=== PATIENT | female | born 1980 | race Caucasian/White ===

== ENCOUNTER → 2017-10-08 | Outpatient (REF) ==
[~2017-10-08] MED LIST: HYDR-4240 PO; IBUP600T22 PO; IOPAMIDOL 76% 100 ML INFUS BTL 100 ML ONE
--- NOTE | 2017-10-08 12:45 | RADIOLOGY IMAGING REPORT ---
FACILITY: [facility] PATIENT NAME: Rachel Marshall : 1980 MR: [id number] V: [id number] EXAM DATE: ORDERING PHYSICIAN: VITALIY CAR TECHNOLOGIST: [place] [facility] [place] : 1980 Visit/Account:[id number] Date of Sevice: 10/08/2017 ABDOMEN/PELVIS WITH CONTRAST HISTORY: Rectal tumor, abdomen and pelvis pain x3 months TECHNIQUE: Following administration of IV contrast contiguous axial images acquired through the abdom en/pelvis. Coronal and sagittal reformatting also performed. Dose Lowering Technique One of the following dose optimization techniques was utilized in the performance of this exam: Autom ated exposure control; adjustment of the mA and/or kV according to the patient's size; or use of an i terative reconstruction technique. Specific details can be referenced in the facility's radiology C T exam operational policy. CONTRAST: 75 mL Isovue-370 COMPARISON: None. FINDINGS: Visualized lung bases: Negative Hepatobiliary: There are postsurgical changes from a cholecystectomy. Liver is enlarged measuring 24.6 cm in length Spleen: The spleen is borderline enlarged measuring 13.4 cm in length. small accessory splenule Adrenals: There Is a 2.2 x 1.6 cm indeterminate right adrenal mass Pancreas: Negative. Kidneys ureters or bladder: There is scarring of the upper pole of the right kidney Genitalia: Please see description under GI section GI: There is irregular thickening of the wall of the rectum. There is an irregular soft tissue mass extending from the left lateral wall of the rectum extending into and appears to invade the left lev ator ani muscle. This mass measures approximately 2.8 x 2.6 x 4.2 cm. there is an additional heterogeneous soft tissue density mass interposed between the anterior left l ateral wall at the rectosigmoid junction extending anteriorly to be in intimate contact with the post erior wall of the vagina/lower cervix. This mass measures 4.6 x 3.2 x 4.5 cm. There is diverticulosis left-sided colon no CT evidence of acute diverticulitis Vessels/spaces/nodes: There Is a 1.3 x 1 cm left common iliac lymph node best seen on image 99 of ser ies 2 there is a 1.1 x 0.7 cm right common iliac lymph node. There are multiple internal iliac lymph nodes present bilaterally. A banking representative left common iliac internal iliac lymph node measures 1 x 0.8 cm there are multiple small lymph nodes identified in the perirectal fat. A banking representative lym ph node measures 8 x 8 mm there are additional small scattered retroperitoneal lymph nodes Bones/soft tissues: There are mild spondylotic changes L5-S1 Additional findings: None pertinent. IMPRESSION: Hepatomegaly and borderline splenomegaly Postsurgical changes from a cholecystectomy 2.2 cm indeterminate right adrenal mass. This could be further evaluated with dedicated CT of the ad renal glands or MR. Scarring upper pole the right kidney There is irregular thickening of the wall of the rectum consistent with history of a rectal tumor.. There is an irregular soft tissue mass extending from the left lateral wall of the rectum extending i nto and invading the left levator ani muscle. This mass measures 2.8 x 2.6 x 4.2 cm Additional heterogeneous soft tissue mass interposed between the anterior left lateral wall of the re ctosigmoid junction extending anteriorly to be in intimate contact with the posterior wall of the vag rika/lower cervix this mass measures 4.6 x 3.2 x 4.5 cm. There is retroperitoneal adenopathy and perirectal adenopathy as described. Report Dictated By: Shirley Winn MD at 10/08/2017 12:20 PM Report E-Signed By: Shirley Winn MD at 10/08/2017 12:41 PM WSN:[email or web address]
== END ==
LOC: CT 00:40
PROVIDERS: ATTEND Nurse Practitioner
DX: R16.0 Hepatomegaly, not elsewhere classified (principal); E27.9 Disorder of adrenal gland, unspecified; R59.0 Localized enlarged lymph nodes; Z90.49 Acquired absence of other specified parts of digestive tract
CPT/HCPCS: 74177; Q9967

== ENCOUNTER → 2017-10-27 | Outpatient (CLI) | payer SELFPAY ==
[~2017-10-27] MED LIST changes: +ACET-2146 PO; -IOPAMIDOL 76% 100 ML INFUS BTL 100 ML ONE; +KET10 PO; +LANI SUBQ; +LEVI SUBQ; +METF-411 PO; +POLY17PO25 PO; +TRAM-420 PO
== END ==
LOC: LAB 16:16
PROVIDERS: ATTEND Surgery
DX: D12.8 Benign neoplasm of rectum (principal)
CPT/HCPCS: 88305; 88344

== ENCOUNTER 2017-11-04 00:47 | Day surgery (SDC) | payer SELFPAY ==
[~2017-11-04] VITALS: Ht 165.1 cm; Wt 151.5 kg
[2017-11-04 06:18] LABS: PLATELET COUNT, AUTOMATED 452 K/uL (150-450)
[2017-11-04 06:50] VITALS: BP 156/94
[2017-11-04] MEDS ORDERED: HEPARIN SOD LCK FLSH 100 UN/ML ONE (07:04)
[2017-11-04] MEDS ORDERED: ROPIVACAINE 0.5% 20 ML VIAL ONE (07:05)
[2017-11-04] MEDS ORDERED: NS(*) 0.9% 10 ML VIAL 20 ML ONE (07:05)
[2017-11-04] MEDS ORDERED: GELATIN SPONGE SZ 100 ONE (07:05)
[2017-11-04] MEDS ORDERED: DEXAMETHASONE SOD PHOS 10MG/ML IVP ONE (07:30)
[2017-11-04] MEDS ORDERED: ONDANSETRON 4 MG/2 ML VIAL IVP ONE (07:30)
[2017-11-04] MEDS ORDERED: ROCURONIUM BROM 10 MG/ML 5 ML ONE (08:00)
[2017-11-04] MEDS ORDERED: SUGAMMADEX SOD 500 MG/5 ML SDV ONE (08:48)
[2017-11-04] MEDS ORDERED: FAMOTIDINE 20 MG TAB PO ONE (09:10)
[2017-11-04] MEDS ORDERED: ceFAZolin(*) 2GM/D5W 50ML 50 ML IVPB ONE (09:10)
[2017-11-04] MEDS ORDERED: MIDAZOLAM 2 MG/2 ML VIAL IVP PRN (09:10)
[2017-11-04] MEDS ORDERED: NORMOSOL R SOLN(*) 1000 ML BAG 1,000 ML IV PRN (09:10)
[2017-11-04] MEDS ORDERED: LIDOCAINE/SOD BICARB 8.4% SYR ID ONE (09:10)
--- NOTE | 2017-11-04 09:20 | RADIOLOGY IMAGING REPORT ---
FACILITY: [facility] PATIENT NAME: Rachel Marshall : 1980 MR: [id number] V: [id number] EXAM DATE: ORDERING PHYSICIAN: SONY LOZANO TECHNOLOG[place] [facility] [place] : 1980 Visit/Account:[id number] Date of Sevice: 11/04/2017 EXAMINATION: OR fluoroscopy films chest single view HISTORY: Port placement. Rectal tumor. COMPARISON: Chest radiograph from 06/18/2016. FLUOROSCOPY TIME: 28.4 seconds. DOSE: DAP was 0.69847 mGy*m2. FINDINGS: Single fluoroscopic image of the chest is obtained intraoperatively. There is placement o f a right IJ central venous port in progress. An endotracheal tube is partly visualized. IMPRESSION: Right IJ central venous port placement in progress. Please see the performing physician's notes for full details. Report Dictated By: Aggie Felix MD at 11/04/2017 9:12 AM Report E-Signed By: Aggie Felix MD at 11/04/2017 9:16 AM WSN:[email or web address]
[2017-11-04] MEDS ORDERED: fentaNYL CITR 100 MCG/2 ML AMP ONE (09:21)
[2017-11-04] MEDS ORDERED: TRAM-420 PO (09:25)
--- NOTE | 2017-11-04 09:28 | Short(Outpt) Discharge Summary ---
Discharge Summary Reason for Hosp/Final Diag: (1) Rectal cancer Status: Chronic Hospital Course & Plan: Flexible sigmoidoscopy and right IJ Power Port placement completed without problems. Departure Discharge to: Home, Self Care Discharge Instructions Home Meds Active Scripts Tramadol Hcl (TRAMADOL HCL) 50 Mg Tablet, 1-2 TAB PO Q4H PRN for PAIN, #30 TAB 0 Refills Prov:SONY LOZANO MD 11/04/17 Reported Medications Insulin Detemir (LEVEMIR) 100 Unit/Ml Injs, 15-20 UNIT SUBQ QDAY 11/01/17 Acetaminophen 500 Mg Tab (ACETAMINOPHEN EXTRA STRENGTH) 500 Mg Tablet, 500 MG PO Q4-6H, TAB 11/01/17 Metformin Hcl (METFORMIN HCL) 500 Mg Tablet, 1 TAB PO BID, TAB 11/01/17 Polyethylene Glycol 3350 (MIRALAX) Unknown Strength Powd.pack, PO, PKT 10/27/17 Ketorolac Tromethamine (KETOROLAC TROMETHAMINE) 10 Mg Tab, 10 MG PO Q4H, TAB 10/21/17 Discontinued Reported Medications Insulin Glargine (LANTUS) Unknown Strength Soln, SUBQ, ML 10/27/17 Ibuprofen (IBUPROFEN) 600 Mg Tablet, 1 TAB PO Q6H PRN for PAIN, #30 01/04/13 [None] No Conflict Check 01/04/13 Follow up Referrals: Oncology - In One Week @ [facility] Follow up with medical and radiation oncology within the next week to discuss chemotherapy and radiation therapy. Diet: Regular Activity: As Tolerated Special Instructions: Your procedures were completed without any problems. You may leave the incisions open to air but leave the steristrips in place until they fall off on their own. You may shower starting on 11/06/17, but don't immerse the incisions for 2 weeks. Follow up with Dr. Parmjit March and the radiation oncologist in the next week to coordinate your chemotherapy and radiation therapy. SONY LOZANO MD Nov 04, 2017 09:28
--- NOTE | 2017-11-04 09:37 | Post Operative Progress Note ---
Post Operative Progress Note Date: Nov 04, 2017 Time: 09:28 Surgeon: Clifford Dictation number: [id number] Anesthesia: GETA by Dr. Crain Pre-Op Diagnosis: Rectal cancer Post-Op Diagnosis: ARTUR Findings: Rectal cancer from within 1cm of anal verge to 12cm from anal verge, non-obstructing, 50% circumferential Procedure(s): Flexible sigmoidoscopy to descending colon Right IJ Power Port placement Specimen Removed:(May be N/A): None Complications: None Fluids: See anesthesia record Estimated Blood Loss: Minimal Date OP Note Dictated: Nov 04, 2017 Time OP Note Dictated: 09:30 SONY LOZANO MD Nov 04, 2017 09:37
--- NOTE | 2017-11-04 09:45 | RADIOLOGY IMAGING REPORT ---
[place] [facility] [place] NAME: Rachel Marshall : 1980 MR: [id number] V: [id number] EXAM DATE: ORDERING PHYSICIAN: SONY LOZANO TECHNOLOGIST: Location: [facility] Patient: Rachel Marshall : 1980 Visit/Account:[id number] Date of Sevice: 11/04/2017 EXAMINATION: Portable chest radiograph single view at 0926 hours HISTORY: Right IJ power port placement. Rectal tumor. COMPARISON: 06/18/2016. FINDINGS: A single portable AP view of the chest is obtained. Lines/tubes: There is a new right IJ central venous port. Tip is well-positioned overlying the dist al SVC. Lungs/pleura: Lung volumes are low without focal consolidation or pleural effusion. There is no pne umothorax visualized. Heart: Negative. Mediastinum: Negative. Bony structures/body wall: Negative. IMPRESSION: 1. Right IJ central venous port tip is well-positioned overlying the distal SVC. 2. No pneumothorax. Report Dictated By: Aggie Felix MD at 11/04/2017 9:40 AM Report E-Signed By: Aggie Felix MD at 11/04/2017 9:42 AM WSN:[email or web address]
[2017-11-04] MEDS ORDERED: traMADol 50 MG TAB ONE (10:03)
[2017-11-04 10:23] VITALS: BP 152/87
--- NOTE | 2017-11-04 10:28 | OPERATIVE REPORT 1 ---
EVENT DATE: November 04, 2017 SURGEON: Juan Horton MD ANESTHESIOLOGIST: Pepe Crain MD ANESTHESIA: General endotracheal anesthesia. PREOPERATIVE DIAGNOSIS Rectal cancer. POSTOPERATIVE DIAGNOSIS Rectal cancer. PROCEDURE PERFORMED 1. Flexible sigmoidoscopy. 2. Right IJ PowerPort placement. COMPLICATIONS None. CONDITION Stable. ESTIMATED BLOOD LOSS Minimal. FINDINGS The patient had a rectal cancer that started within 1 cm of the anal verge and was continuous up to about 12 cm from the anal verge. It was about 50% circumferential and was nonobstructing. INDICATIONS This is a 36-year-old female who was referred to me from the oncologist for consideration of surgical resection of rectal cancer recently found on colonoscopy performed at [facility]. The patient has been having bright red blood per rectum for several months and ultimately was evaluated by [facility], who was treating her for hemorrhoids, but without improvement. She ultimately, for whatever reason, was sent to [facility] for colonoscopy and per the endoscopist report, he found at 20 cm a lesion that he biopsied and it revealed a tubulovillous adenoma containing an invasive component. He then saw another lesion in the distal rectum, that for whatever reason, did not biopsy. She was referred to oncology who then referred her to me. Because of the suspicion for distal rectal cancer and because the CT revealed that whatever the process in the lower rectum was, looked to be going through the wall of the rectum into the levator muscle, I recommended that I rescope her and that she would likely need neoadjuvant chemotherapy and she will need chemotherapy regardless. I consented her for endoscopic evaluation of her rectum and sigmoid colon, and a PowerPort placement. DESCRIPTION OF PROCEDURE The patient was brought to the operating room and placed upon the operating table. General endotracheal anesthesia was administered and she was placed in [facility]. The colonoscope was tested to insure it was completely functional, lubricated and inserted into her rectum through her anus. Immediately upon entering the rectum, I saw the lesion which is very consistent with a cancer, not a simple polyp. I advanced the scope easily up into the sigmoid and even descending colon, and slowly withdrew the scope. She was not fully prepped, but I did give her an enema preop. When I got the scope back down to about 12 cm, this was the beginning of this neoplasm. I then withdrew the scope and inspected the rectum and this was continuous from 12 cm to within 1 cm of the anal sphincter muscles. I did not do any further biopsies because we already have a biopsy proving invasive cancer. I then withdrew the scope and she was taken out of the [place] and then her right neck, shoulder and chest were prepped and draped in sterile fashion. Another timeout was completed. She was placed in Trendelenburg. I used the ultrasound to identify the internal jugular vein and accessed the vein on one attempt. I then threaded the wire though the access needle and then I used the C-arm to confirm the wire in the superior vena cava. There was no cardiac ectopy during the surgery. I then anesthetized the skin and then neck where I accessed the vein, and then anesthetized the infraclavicular skin. I made a stab incision in the neck where the wire entered the skin, and then made a transverse incision in the infraclavicular skin. I then dissected through the dermis and then the subcutaneous fat, created a pocket caudad to the incision, made sure this was hemostatic, and then used the tunneler and dragged the catheter from the pocket up to the stab incision in the neck. I then with the patient in Trendelenburg, used the dilator and sheath over the wire and removed the wire and dilator, and then threaded the catheter through the sheath and removed the sheath. I then used the C-arm to pull the catheter back so the tip was in the superior vena cava just above the right atrium. I then cut the catheter length, placed the port on the catheter, locked it into place with the locking cuff and then secured the catheter to the underlying muscle fascia with 3-0 Nylon at the corners. I then aspirated saline through the catheter and then flushed it with 10 cc of saline and it aspirated and flushed with no problems. I then flushed the port and catheter with 5 cc of 100 unit per cc of Heparinated saline. I then took some more C-arm images and once I confirmed it was in a good spot, I closed the pocket in the right chest with interrupted 3-0 Vicryl deep dermal sutures and 4-0 Monocryl running subcuticular sutures. I then placed a 3-0 Chromic in the stab incision in the neck. The skin was cleaned, dried, and Steri-Strips were applied over each of these incisions. The patient was then awakened and extubated and transported to the recovery room in stable condition having tolerated the procedure without any apparent problems. SHREE
[2017-11-04 10:30] VITALS: BP 151/93
[2017-11-04] MEDS ORDERED: traMADol 50 MG TAB PO ONE (10:55)
[2017-11-04 11:00] VITALS: BP 148/77
[2017-11-04 11:15] VITALS: BP 134/74
[2017-11-04 11:26] VITALS: BP 126/84
== END 2017-11-04 10:23 | disposition home or self-care (01) ==
LOC: OR 00:47
PROVIDERS: ATTEND Surgery
DX: C20 Malignant neoplasm of rectum (principal); E11.9 Type 2 diabetes mellitus without complications
CPT/HCPCS: 00811; 36415; 36416; 36561; 45330; 71045; 77001; 82378; 82948; 84703; 85025; C1788; J1100; J1642; J2250; J2405; J2795; J3010; 82040; 82247; 82310; 82374; 82435; 82565; 82947; 84075; 84132; 84155; 84295; 84450; 84460; 84520; J0690

== ENCOUNTER 2017-11-30 13:41 | Outpatient (RCR) | payer SELFPAY ==
[~2017-11-30 13:41] MED LIST changes: +HYDR-385 PO; -METF-411 PO; +METF-450 PO
[2017-12-01] MEDS ORDERED: PROC10TA4 PO (09:23)
[2017-12-01] MEDS ORDERED: ONDA4TAB PO (09:25)
== END 2018-02-09 12:53 | disposition home or self-care (01) ==
LOC: RAON 13:41
PROVIDERS: ATTEND Radiology Radiation Oncology
DX: Z02.9 Encounter for administrative examinations, unspecified (principal)

== ENCOUNTER 2018-01-14 11:30 | Outpatient (RCR) | payer SELFPAY ==
[2017-10-21 10:20] VITALS: BP 152/97
--- NOTE | 2017-10-21 15:38 | CONSULTATION ---
EVENT DATE: October 21, 2017 [address] [facility] CONSULTING PHYSICIAN Katie Hussein MD REASON FOR CONSULTATION Evaluation and management of colon cancer. ONCOLOGY HISTORY Patient is a 36-year-old woman who had right carpal tunnel surgery three months ago, and the patient took narcotics related to development of constipation. Patient was given stool softeners for that, but she developed rectal bleeding and dyschezia. She went to Urgent Care where she has been on three or four occasions and has been diagnosed with internal and external hemorrhoids. She was taking Preparation-H with minimal amount of benefit, but she continues to have rectal pain, so the patient requested to see a specialist. The patient was referred to [facility] supervisor in [place]. She had a colonoscopy done on the September, which showed a malignant mass, a partially obstructing tumor at 20 cm from the anal verge which was biopsied. There was also a rectal mass zero to 1 cm from the anal verge, but it was not biopsied. The pathology of the 20 cm mass from the anal verge came back positive for moderately differentiated adenocarcinoma arising in an adenomatous polyp with high-grade dysplasia. High-grade dysplasia and invasive tumor involved with the edges of the biopsy. No lymphovascular invasion identified. Microsatellite instability high came back negative. She had a CT abdomen and pelvis done on the September which showed irregular soft tissue mass extending from the left lateral wall of the rectum, extending into and appeared to invade the left levator ani muscle about 4.2 cm. There was an additional heterogenous soft tissue density mass at the rectosigmoid junction about 4.6 cm. There were multiple lymph nodes in the left common iliac and the right common iliac, internal iliac lymph nodes bilaterally, left common iliac internal iliac lymph nodes. multiple small lymph nodes identified in the perirectal fat, and there were scattered retroperitoneal lymph nodes, but the lymph nodes are less than 1.5 cm in size. PAST MEDICAL HISTORY 1. Obesity. 2. Type 2 diabetes. PAST SURGICAL HISTORY 1. times four. 2. Right carpal tunnel release surgery times two. 3. Cholecystectomy. FAMILY HISTORY Patient had ovarian cancer in her paternal grandmother. Maternal aunt with breast cancer. Paternal uncle with colon cancer in his 40s. SOCIAL HISTORY Patient is with four children. She worked for [employer], but not currently as she is on a medical leave now. Denies any abuse of tobacco, alcohol, or illicit drugs. She is a never smoker lady. CURRENT MEDICATIONS 1. Ketorolac 10 mg tablet every four hours p.r.n. for pain. 2. Ibuprofen p.r.n. for pain. ALLERGIES No known drug allergies. REVIEW OF SYSTEMS CONSTITUTIONAL: No appetite or weight change. No fever, chills, or sweating. No recent infection. HEENT: Ears: No tinnitus or hearing problem. Nose: No nasal discharge or epistaxis. Throat: No sore throat or mouth ulcers. Eyes: No diplopia or visual changes. RESPIRATORY: No shortness of breath. No cough, expectoration, or hemoptysis. CARDIOVASCULAR: No chest pain, orthopnea, or paroxysmal nocturnal dyspnea (PND) . No edema. No palpitations. GASTROINTESTINAL: No nausea or vomiting. She has constipation which is better with stool softener and laxative now. No heartburn or swallowing difficulties. No abdominal pain. No jaundice. No hematemesis, melena, or rectal bleeding. GENITOURINARY: No hematuria or dysuria. MUSCULOSKELETAL: No pain in the muscles, joints, or bones. NEUROLOGICAL: No tingling or numbness in the hands or feet. No headaches or convulsions. HEMATOLOGIC/LYMPHATIC: No bleeding or easy bruising. No weakness or fatigue. No enlarged lymph nodes. SKIN: No skin rash or lumps. PSYCHIATRIC: No anxiety or depression. PHYSICAL EXAMINATION GENERAL: Looks stable. Well developed, well nourished, and in no acute distress. VITAL SIGNS: Blood pressure 152/97, pulse 89 per minute, respirations 18 per minute, temperature 98.1, pulse ox 95% on room air. HEENT: Head: Atraumatic. No sinus tenderness to palpation. Eyes: No icterus or conjunctivitis. Mouth and throat: No oral thrush or mucositis. NECK: Supple. No cervical or supraclavicular lymphadenopathy. LUNGS: Clear to auscultation and percussion bilaterally. HEART: Regular rate and rhythm. No gallops, murmurs, clicks, or rubs. ABDOMEN: Soft and lax. No tenderness. No hepatosplenomegaly. No masses. EXTREMITIES: No cyanosis, clubbing, or edema. LYMPHATICS: No peripheral lymphadenopathy. NEUROLOGICAL: Conscious, alert, and oriented times three. No focal motor or sensory deficits. PSYCHIATRIC: Mood and affect appear normal. SKIN: No skin rash, bruise, or purpuric eruption. ASSESSMENT Colon cancer, status post colonoscopy done on September, which showed two masses, one at 20 cm from the anal verge, and the biopsy came back positive for invasive moderately differentiated adenocarcinoma arising from adenomatous polyp. Microsatellite instability high is negative. No lymphovascular invasion identified. There was another rectal mass zero to 1 cm from the anal verge which was not biopsied. CT abdomen/pelvis done on the September showed multiple lymph nodes in the left common iliac, right common iliac, internal iliac, retroperitoneal lymph nodes, and also in the perirectal fat. They were small lymph nodes. The largest was in the left common iliac, about 1.3 cm. There were two masses, an irregular soft tissue mass extending from the left lateral wall of the rectum about 4.2 cm extending into and appears to invade the left levator ani muscle. There was another mass 4.6 cm at the rectosigmoid junction. Given this information, at her age, this is an interesting case. I plan to refer the patient to Dr. Horton to do a colonoscopy or sigmoidoscopy and to biopsy the distal rectal mass. Patient also will need segmental resection given that she has tumor arising from a polyp , and the edges are positive. I talked to Dr. Horton also to sample all significant lymph nodes in the abdomen during the segmental resection of the colon. I am planning also to get a PET CT scan for evaluation of those extensive lymph nodes everywhere in the abdomen and pelvis bilaterally as the patient could have like a low-grade lymphoma beside her colon or rectal cancer, and we are going to biopsy those lymph nodes during her segmental resection of the colon also. I am planning to check her CBC, chemistry panel, and CEA. I will see her after the above for further evaluation and management. PLAN 1. PET CT scan. 2. Referral to Dr. Horton for sigmoidoscopy, biopsy of the distal rectal mass , segmental resection of the colon mass, and sampling of lymph nodes from the abdomen during the surgery. 3. Check CBC, chem panel, and CEA. 4. Patient to return after the above for further evaluation and management. 5. Patient to contact us for any new concerns or complaints. SHREE
[2017-11-11 08:13] VITALS: BP 142/103
--- NOTE | 2017-11-11 10:10 | [facility] ONCOLOGY NOTE ---
EVENT DATE: November 11, 2017 DIAGNOSES Rectal adenocarcinoma. CHIEF COMPLAINT The patient is here today for followup of her rectal concern. ONCOLOGY HISTORY Patient is a 36-year-old woman who had right carpal tunnel surgery three months ago, and the patient took narcotics related to development of constipation. Patient was given stool softeners for that, but she developed rectal bleeding and dyschezia. She went to Urgent Care where she has been on three or four occasions and has been diagnosed with internal and external hemorrhoids. She was taking Preparation-H with minimal amount of benefit, but she continues to have rectal pain, so the patient requested to see a specialist. The patient was referred to jet handler in [place]. She had a colonoscopy done on the September, which showed a malignant mass, a partially obstructing tumor at 20 cm from the anal verge which was biopsied. There was also a rectal mass zero to 1 cm from the anal verge, but it was not biopsied. The pathology of the 20 cm mass from the anal verge came back positive for moderately differentiated adenocarcinoma arising in an adenomatous polyp with high-grade dysplasia. High-grade dysplasia and invasive tumor involved with the edges of the biopsy. No lymphovascular invasion identified. Microsatellite instability high came back negative. She had a CT abdomen and pelvis done on the September which showed irregular soft tissue mass extending from the left lateral wall of the rectum, extending into and appeared to invade the left levator ani muscle about 4.2 cm. There was an additional heterogenous soft tissue density mass at the rectosigmoid junction about 4.6 cm. There were multiple lymph nodes in the left common iliac and the right common iliac, internal iliac lymph nodes bilaterally, left common iliac internal iliac lymph nodes. multiple small lymph nodes identified in the perirectal fat, and there were scattered retroperitoneal lymph nodes, but the lymph nodes are less than 1.[address] scan done on October 28, 2017 did reveal fullness of the rectal area with fairly significant bulkiness into the perirectal fat, SUV in the low 20s. There was also some activity in the right lateral mucosa/perimucosal region of the oropharynx with SUV of 3, which is nonspecific but no masses could be appreciated. The patient also had a colonoscopy with biopsy done by Dr. Horton on October 27, 2017 and I discussed the case with Dr. Clifford. He found that the rectal mass and the colon mass both are one mass with intraluminal spread through the hughes, which is only one mass, and the biopsy of the rectal came back tubovillous adenoma. HISTORY OF PRESENT ILLNESS Patient is here today for followup of her rectal cancer. She has some rectal pain, especially on defecation. She has also diarrhea from the use of MiraLAX. The patient is using MiraLAX twice daily and she is advised to use it once daily. She has also some pain at the site of port placement. PAST MEDICAL HISTORY 1. Obesity. 2. Type 2 diabetes. PAST SURGICAL HISTORY 1. times four. 2. Right carpal tunnel release surgery times two. 3. Cholecystectomy. FAMILY HISTORY Patient had ovarian cancer in her paternal grandmother. Maternal aunt with breast cancer. Paternal uncle with colon cancer in his 40s. SOCIAL HISTORY Patient is with four children. She worked for [employer], but not currently as she is on a medical leave now. Denies any abuse of tobacco, alcohol, or illicit drugs. She is a never smoker lady. CURRENT MEDICATIONS 1. Ketorolac 10 mg tablet every four hours p.r.n. for pain. 2. Ibuprofen p.r.n. for pain. ALLERGIES No known drug allergies. REVIEW OF SYSTEMS CONSTITUTIONAL: No appetite or weight change. No fever, chills, or sweating. No recent infection. HEENT: Ears: No tinnitus or hearing problem. Nose: No nasal discharge or epistaxis. Throat: No sore throat or mouth ulcers. Eyes: No diplopia or visual changes. RESPIRATORY: Right chest pain at the site of port placement. CARDIOVASCULAR: No chest pain, orthopnea, or paroxysmal nocturnal dyspnea (PND). No edema. No palpitations. GASTROINTESTINAL: Rectal pain and diarrhea from the use of MiraLAX. GENITOURINARY: No hematuria or dysuria. MUSCULOSKELETAL: No pain in the muscles, joints, or bones. NEUROLOGICAL: No tingling or numbness in the hands or feet. No headaches or convulsions. HEMATOLOGIC/LYMPHATIC: No bleeding or easy bruising. No weakness or fatigue. No enlarged lymph nodes. SKIN: No skin rash or lumps. PSYCHIATRIC: No anxiety or depression. PHYSICAL EXAMINATION GENERAL: Looks stable. Well developed, well nourished, and in no acute distress. VITAL SIGNS: Blood pressure 142/103, pulse 77 per minute, respirations 18 per minute, temperature 97, pulse ox 94% on room air. HEENT: Head: Atraumatic. No sinus tenderness to palpation. Eyes: No icterus or conjunctivitis. Mouth and throat: No oral thrush or mucositis. NECK: Supple. No cervical or supraclavicular lymphadenopathy. LUNGS: Clear to auscultation and percussion bilaterally. HEART: Regular rate and rhythm. No gallops, murmurs, clicks, or rubs. ABDOMEN: Soft and lax. No tenderness. No hepatosplenomegaly. No masses. EXTREMITIES: No cyanosis, clubbing, or edema. LYMPHATICS: No peripheral lymphadenopathy. NEUROLOGICAL: Conscious, alert, and oriented times three. No focal motor or sensory deficits. PSYCHIATRIC: Mood and affect appear normal. SKIN: No skin rash, bruise, or purpuric eruption. DIAGNOSTIC DATA CBC showed white count 8.4, hemoglobin 11.7, hematocrit 56.3, platelets 452,000. Chem panel is totally normal except a blood sugar of 124, sodium 156. CEA is normal at 10.9. PET CT scan done on October 28, 2017 did reveal the rectal area with fairly significant bulkiness into the perirectal fat with SUV in the low 20s. There was some activity in the oropharynx with SUV of 3. No systemic metastasis. ASSESSMENT 1. Colon cancer, status post colonoscopy done on October 06, 2017, which showed two masses, one at 20 cm from the anal verge and the biopsy came back positive for invasive moderately differentiated adenocarcinoma arising from adenomatous polyp. Microsatellite instability high is negative. No lymphovascular invasion identified. There was another rectal mass at 0-1 cm from the anal verge, which was not biopsied. CT abdomen/pelvis done on October 08, 2017 showed multiple lymph nodes in the left common iliac, right common iliac, internal iliac, retroperitoneal lymph nodes and also in the perirectal fat. They were small lymph nodes. The largest was in the left common iliac, about 1.3 cm. There were two masses, an irregular soft tissue mass extending from the left lateral wall of the rectum about 4.2 cm extending into and appears to invade the left levator ani muscle. There was another mass 4.6 cm at the rectosigmoid junction. The patient had a colonoscopy by Dr. Horton on October 27, 2017 and, per his report, there was only one mass extending through the wall of the rectum into the rectosigmoid junction so it was only one mass. Biopsy of the rectal mass came back positive for tubovillous adenoma. Given this information, I am planning to treat her with a new adjuvant chemotherapy with eight cycles of FOLFOX to be followed by chemoradiation to be followed by surgery. I spent a long time with the patient explaining the plan of management. I am planning to treat her with FOLFOX chemotherapy with oxaliplatin, 5-FU and leucovorin every two weeks for eight cycles. I will get her an appointment also with radiation oncologist and after finishing her chemotherapy we will coordinate together to start her chemoradiation. I explained that to the patient. She is agreeable with the plan of management. 2. Increased uptake of the oropharynx by PET scan. I plan to refer the patient to Dr. John Cook, our surgical consultant, for examination of the oropharynx for the possibility of any masses there. PLAN 1. Radiation therapy consult. 2. ENT consult. 3. FOLFOX chemotherapy. This will be cycle #1 to start the beginning of the next week. 4. CBC and chem panel to be checked weekly. 5. The patient is to return in two weeks with CBC, chem panel and CEA. 6. Consider Neulasta after chemotherapy if the patient would develop neutropenia. 7. Patient to contact us for any new concerns or complaints. MTDD
[2017-11-17 08:30] VITALS: BP 152/95
[2017-11-17] MEDS: NS(*) 0.9% 500 ML BAG 500 ML IV PRN (08:30)
[2017-11-17] MEDS: LIDOCAINE/SOD BICARB 8.4% SYR ID PRN (08:30)
[2017-11-17] MEDS: DEXAMETHASONE SOD PHOS 10MG/ML IVP PRN (09:27)
[2017-11-17] MEDS: PALONOSETRON 0.25 MG/5 ML VIAL IVP PRN (09:28)
[2017-11-17] MEDS: DEXTROSE 5%(*) 100 ML BAG 100 ML IVPB PRN (12:18)
[2017-11-19] MEDS: HEPARIN FLSH (PORT) 500 UN/5ML IVP PRN (11:07)
[2017-11-26 14:27] LABS: PLATELET COUNT, AUTOMATED 364 K/uL (150-450)
[2017-12-01] MEDS: DEXTROSE 5%(*) 100 ML BAG 100 ML IVPB PRN (09:03)
[2017-12-01] MEDS: NS(*) 0.9% 500 ML BAG 500 ML IV PRN (09:03)
[2017-12-01] MEDS: LIDOCAINE/SOD BICARB 8.4% SYR ID PRN (09:03)
[2017-12-01] MEDS: PALONOSETRON 0.25 MG/5 ML VIAL IVP PRN (09:04)
[2017-12-01] MEDS: DEXAMETHASONE SOD PHOS 10MG/ML IVP PRN (09:04)
[2017-12-01 09:16] VITALS: BP 130/90
[2017-12-01 12:09] VITALS: BP 151/94
[2017-12-03 10:22] VITALS: BP 143/102
[2017-12-03] MEDS: HEPARIN FLSH (PORT) 500 UN/5ML IVP PRN (10:25)
--- NOTE | 2017-12-03 18:07 | ONCOLOGY FOLLOW UP NOTE ---
EVENT DATE: December 03, 2017 DIAGNOSIS Rectal adenocarcinoma. CHIEF COMPLAINT The patient is here today for followup of her rectal cancer on neoadjuvant chemotherapy with FOLFOX. . ONCOLOGY HISTORY Patient is a 36-year-old woman who had right carpal tunnel surgery three months ago, and the patient took narcotics related to development of constipation. Patient was given stool softeners for that, but she developed rectal bleeding and dyschezia. She went to Urgent Care where she has been on three or four occasions and has been diagnosed with internal and external hemorrhoids. She was taking Preparation-H with minimal amount of benefit, but she continues to have rectal pain, so the patient requested to see a specialist. The patient was referred to automotive parts manager in [place]. She had a colonoscopy done on the September, which showed a malignant mass, a partially obstructing tumor at 20 cm from the anal verge which was biopsied. There was also a rectal mass zero to 1 cm from the anal verge, but it was not biopsied. The pathology of the 20 cm mass from the anal verge came back positive for moderately differentiated adenocarcinoma arising in an adenomatous polyp with high-grade dysplasia. High-grade dysplasia and invasive tumor involved with the edges of the biopsy. No lymphovascular invasion identified. Microsatellite instability high came back negative. She had a CT abdomen and pelvis done on the September which showed irregular soft tissue mass extending from the left lateral wall of the rectum, extending into and appeared to invade the left levator ani muscle about 4.2 cm. There was an additional heterogenous soft tissue density mass at the rectosigmoid junction about 4.6 cm. There were multiple lymph nodes in the left common iliac and the right common iliac, internal iliac lymph nodes bilaterally, left common iliac internal iliac lymph nodes. multiple small lymph nodes identified in the perirectal fat, and there were scattered retroperitoneal lymph nodes, but the lymph nodes are less than 1.[address] scan done on October 28, 2017 did reveal fullness of the rectal area with fairly significant bulkiness into the perirectal fat, SUV in the low 20s. There was also some activity in the right lateral mucosa/perimucosal region of the oropharynx with SUV of 3, which is nonspecific but no masses could be appreciated. The patient also had a colonoscopy with biopsy done by Dr. Horton on October 27, 2017 and I discussed the case with Dr. Horton. He found that the rectal mass and the colon mass both are one mass with intraluminal spread through the hughes, which is only one mass, and the biopsy of the rectal came back tubovillous adenoma. Patient started neoadjuvant chemotherapy with FOLFOX on November 17, 2017. HISTORY OF PRESENT ILLNESS Patient is here today for her third cycle of FOLFOX neoadjuvant treatment for her rectal adenocarcinoma. Patient started her chemotherapy on November 17, 2017. She received two cycles so far. She is complaining of nausea sometimes. Her stools are getting bigger and her bowel movements are more regular now. 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 PAST MEDICAL HISTORY 1. Obesity. 2. Type 2 diabetes. PAST SURGICAL HISTORY 1. times four. 2. Right carpal tunnel release surgery times two. 3. Cholecystectomy. FAMILY HISTORY Patient had ovarian cancer in her paternal grandmother. Maternal aunt with breast cancer. Paternal uncle with colon cancer in his 40s. SOCIAL HISTORY Patient is with four children. She worked for [employer], but not currently as she is on a medical leave now. Denies any abuse of tobacco, alcohol, or illicit drugs. She is a never smoker lady. CURRENT MEDICATIONS 1. Ketorolac 10 mg tablet every four hours p.r.n. for pain. 2. Ibuprofen p.r.n. for pain. ALLERGIES No known drug allergies. REVIEW OF SYSTEMS CONSTITUTIONAL: No appetite or weight change. No fever, chills or sweating. No recent infection. HEENT: Ears: No tinnitus or hearing problem. Nose: No nasal discharge or epistaxis. Throat: No sore throat or mouth ulcers. Eyes: No diplopia or visual changes. RESPIRATORY: No shortness of breath. No cough, expectoration or hemoptysis. CARDIOVASCULAR: No chest pain, orthopnea, or paroxysmal nocturnal dyspnea (PND). No edema. No palpitations. GASTROINTESTINAL: The patient has nausea. No vomiting. Her stools are getting bigger and her bowel movements are more regular. No heartburn or swallowing difficulties. No abdominal pain. No jaundice. No hematemesis, melena or rectal bleeding. GENITOURINARY: No hematuria or dysuria. MUSCULOSKELETAL: No pain in the muscles, joints or bones. 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 No tingling or numbness in the hands or feet. No headaches or convulsions. HEMATOLOGIC/LYMPHATIC: No bleeding or easy bruising. No weakness or fatigue. No enlarged lymph nodes. SKIN: No skin rash or lumps. PSYCHIATRIC: No anxiety or depression. PHYSICAL EXAMINATION GENERAL: Looks stable. Well developed, well nourished, and in no acute distress. VITAL SIGNS: Blood pressure 145/102, pulse 70 per minute, respirations 16 per minute, temperature 98.2, pulse ox 95% on room air. HEENT: Head: Atraumatic. No sinus tenderness to palpation. Eyes: No icterus or conjunctivitis. Mouth and throat: No oral thrush or mucositis. NECK: Supple. No cervical or supraclavicular lymphadenopathy. LUNGS: Clear to auscultation and percussion bilaterally. HEART: Regular rate and rhythm. No gallops, murmurs, clicks, or rubs. ABDOMEN: Soft and lax. No tenderness. No hepatosplenomegaly. No masses. EXTREMITIES: No cyanosis, clubbing, or edema. LYMPHATICS: No peripheral lymphadenopathy. NEUROLOGICAL: Conscious, alert, and oriented times three. No focal motor or sensory deficits. PSYCHIATRIC: Mood and affect appear normal. SKIN: No skin rash, bruise, or purpuric eruption. DIAGNOSTIC DATA CBC showed white count 7.3, hemoglobin 11.2, hematocrit 34.8, platelets 342,000. Chem panel totally normal except blood sugar 111. CEA is 7.8 which is down from 9.3. ASSESSMENT 1. Rectal adenocarcinoma status post colonoscopy done on October 06, 2017, which showed two masses, one at 20 cm from the anal verge and the biopsy came back positive for invasive moderately differentiated adenocarcinoma arising from adenomatous polyp. Microsatellite instability high is negative. No lymphovascular invasion identified. There was another rectal mass at 0-1 cm from the anal verge, which was not biopsied. CT abdomen/pelvis done on October 08, 2017 showed multiple lymph nodes in the left common iliac, right common iliac, internal iliac, retroperitoneal lymph nodes and also in the perirectal fat. They were small lymph nodes. The largest in the left common iliac was about 1.3 cm. There were two masses, an irregular soft tissue mass extending from the left lateral wall of the rectum about 4.2 cm extending into and appears to invade the left levator ani muscle. There was another mass 4.6 cm at the rectosigmoid junction. The patient had a colonoscopy by Dr. Horton on October 27, 2017 and, per his report, there was only one mass extending through the wall of the rectum into the rectosigmoid junction so it was only one mass. Biopsy of the rectal mass came back positive for tubovillous adenoma. Given this information, patient started adjuvant chemotherapy with FOLFOX chemotherapy started on November 17, 2017, to be followed by chemoradiation, to be followed by surgery. She received two cycles of chemotherapy so far, and her tumor marker with CEA dropped from 11 to 9.3 and currently 7.8. She is feeling better. Her stool size is getting bigger and more regular. I am planning to proceed with her third cycle as per schedule. I am planning to see her prior to her next cycle in two weeks with CBC, chem panel and CEA, and I will check her CBC and CMP weekly. Patient has been evaluated by Dr. Valdez and we are planning to repeat her PET scan and colonoscopy after the eighth cycle of neoadjuvant chemotherapy. 2. Increased uptake of the oropharynx by PET scan. The patient has been seeing Dr. Ralph Cook, and a thorough exam with scope did not reveal any masses in that area. PLAN 1. FOLFOX chemotherapy. This will be cycle number three. 2. CBC, chem panel to be checked weekly. 3. Patient to return in two weeks with CBC, chem panel, CEA. 4. Consider Neulasta shot if the patient develops neutropenia. 5. Patient to contact us for any new concern or complaints. MTDD
[2017-12-10 10:29] VITALS: BP 139/90
[2017-12-10 10:35] LABS: PLATELET COUNT, AUTOMATED 411 K/uL (150-450)
[2017-12-15 08:51] VITALS: BP 158/105
[2017-12-15] MEDS: LIDOCAINE/SOD BICARB 8.4% SYR ID PRN (09:05)
[2017-12-15] MEDS: NS(*) 0.9% 500 ML BAG 500 ML IV PRN (09:06)
[2017-12-15] MEDS: DEXTROSE 5%(*) 100 ML BAG 100 ML IVPB PRN (09:06)
[2017-12-15] MEDS: DEXAMETHASONE SOD PHOS 10MG/ML IVP PRN (09:47)
[2017-12-15] MEDS: PALONOSETRON 0.25 MG/5 ML VIAL IVP PRN (09:48)
[2017-12-17] MEDS: HEPARIN FLSH (PORT) 500 UN/5ML IVP PRN (11:58)
[2017-12-20] MEDS: LIDOCAINE/SOD BICARB 8.4% SYR ID PRN (12:35)
[2017-12-20 12:41] LABS: PLATELET COUNT, AUTOMATED 323 K/uL (150-450)
[2017-12-20 13:45] VITALS: BP 158/98
[2017-12-20] MEDS: HEPARIN FLSH (PORT) 500 UN/5ML IVP PRN (13:51)
[2017-12-24 13:58] VITALS: BP 158/98
[2017-12-24 14:19] LABS: PLATELET COUNT, AUTOMATED 364 K/uL (150-450)
[2017-12-29 08:42] VITALS: BP 160/100
[2017-12-29] MEDS: LIDOCAINE/SOD BICARB 8.4% SYR ID PRN (09:01)
[2017-12-29] MEDS: NS(*) 0.9% 500 ML BAG 500 ML IV PRN (09:01)
[2017-12-29] MEDS: DEXAMETHASONE SOD PHOS 10MG/ML IVP PRN (09:30)
[2017-12-29] MEDS: PALONOSETRON 0.25 MG/5 ML VIAL IVP PRN (09:30)
[2017-12-29] MEDS: DEXTROSE 5%(*) 100 ML BAG 100 ML IVPB PRN (09:50)
[2017-12-29 13:10] VITALS: BP 171/103
[2017-12-31 10:42] VITALS: BP 160/112
[2017-12-31] MEDS: HEPARIN FLSH (PORT) 500 UN/5ML IVP PRN (13:00)
[2018-01-07 15:51] LABS: PLATELET COUNT, AUTOMATED 317 K/uL (150-450)
[2018-01-07 16:07] VITALS: BP 149/105
--- NOTE | 2018-01-08 09:24 | EL-TARABILY ONCOLOGY NOTE ---
EVENT DATE: January 07, 2018 DIAGNOSIS Rectal adenocarcinoma. CHIEF COMPLAINT The patient is here today for followup of her rectal cancer on neoadjuvant chemotherapy with FOLFOX. . ONCOLOGY HISTORY Patient is a 36-year-old woman who had right carpal tunnel surgery three months ago, and the patient took narcotics related to development of constipation. Patient was given stool softeners for that, but she developed rectal bleeding and dyschezia. She went to Urgent Care where she has been on three or four occasions and has been diagnosed with internal and external hemorrhoids. She was taking Preparation-H with minimal amount of benefit, but she continues to have rectal pain, so the patient requested to see a specialist. The patient was referred to fleet sales manager in [place]. She had a colonoscopy done on the September, which showed a malignant mass, a partially obstructing tumor at 20 cm from the anal verge which was biopsied. There was also a rectal mass zero to 1 cm from the anal verge, but it was not biopsied. The pathology of the 20 cm mass from the anal verge came back positive for moderately differentiated adenocarcinoma arising in an adenomatous polyp with high-grade dysplasia. High-grade dysplasia and invasive tumor involved with the edges of the biopsy. No lymphovascular invasion identified. Microsatellite instability high came back negative. She had a CT abdomen and pelvis done on the September which showed irregular soft tissue mass extending from the left lateral wall of the rectum, extending into and appeared to invade the left levator ani muscle about 4.2 cm. There was an additional heterogenous soft tissue density mass at the rectosigmoid junction about 4.6 cm. There were multiple lymph nodes in the left common iliac and the right common iliac, internal iliac lymph nodes bilaterally, left common iliac internal iliac lymph nodes. multiple small lymph nodes identified in the perirectal fat, and there were scattered retroperitoneal lymph nodes, but the lymph nodes are less than 1.[address] scan done on October 28, 2017 did reveal fullness of the rectal area with fairly significant bulkiness into the perirectal fat, SUV in the low 20s. There was also some activity in the right lateral mucosa/perimucosal region of the oropharynx with SUV of 3, which is nonspecific but no masses could be appreciated. The patient also had a colonoscopy with biopsy done by Dr. Horton on October 27, 2017 and I discussed the case with Dr. Horton. He found that the rectal mass and the colon mass both are one mass with intraluminal spread through the hughes, which is only one mass, and the biopsy of the rectal came back tubovillous adenoma. Patient started neoadjuvant chemotherapy with FOLFOX on November 17, 2017. HISTORY OF PRESENT ILLNESS Patient is here today for her fifth cycle of FOLFOX neoadjuvant treatment for her rectal adenocarcinoma. She started her chemotherapy on November 17, 2017. She recently finished four courses so far. She is complaining of severe back pain, under control currently with oxycodone. She had also fatigue, getting worse after her chemotherapy. PAST MEDICAL HISTORY 1. Obesity. 2. Type 2 diabetes. PAST SURGICAL HISTORY 1. times four. 2. Right carpal tunnel release surgery times two. 3. Cholecystectomy. FAMILY HISTORY Patient had ovarian cancer in her paternal grandmother. Maternal aunt with breast cancer. Paternal uncle with colon cancer in his 40s. SOCIAL HISTORY Patient is with four children. She worked for [employer], but not currently as she is on a medical leave now. Denies any abuse of tobacco, alcohol, or illicit drugs. She is a never smoker lady. CURRENT MEDICATIONS 1. Ketorolac 10 mg tablet every four hours p.r.n. for pain. 2. Ibuprofen p.r.n. for pain. ALLERGIES No known drug allergies. REVIEW OF SYSTEMS CONSTITUTIONAL: No appetite or weight change. No fever, chills or sweating. No recent infection. HEENT: Ears: No tinnitus or hearing problem. Nose: No nasal discharge or epistaxis. Throat: No sore throat or mouth ulcers. Eyes: No diplopia or visual changes. RESPIRATORY: No shortness of breath. No cough, expectoration or hemoptysis. CARDIOVASCULAR: No chest pain, orthopnea, or paroxysmal nocturnal dyspnea (PND). No edema. No palpitations. GASTROINTESTINAL: The patient has nausea. No vomiting. Her stools are getting bigger and her bowel movements are more regular. No heartburn or swallowing difficulties. No abdominal pain. No jaundice. No hematemesis, melena or rectal bleeding. GENITOURINARY: No hematuria or dysuria. MUSCULOSKELETAL: She has severe back pain. 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 No tingling or numbness in the hands or feet. No headaches or convulsions. HEMATOLOGIC/LYMPHATIC: She is weak, tired and fatigued, especially after chemotherapy. SKIN: No skin rash or lumps. PSYCHIATRIC: No anxiety or depression. PHYSICAL EXAMINATION GENERAL: Looks stable. Well developed, well nourished, and in no acute distress. VITAL SIGNS: Blood pressure 149/105, pulse 88 per minute, respirations 16 per minute, temperature 97.6, pulse ox 95% on room air. HEENT: Head: Atraumatic. No sinus tenderness to palpation. Eyes: No icterus or conjunctivitis. Mouth and throat: No oral thrush or mucositis. NECK: Supple. No cervical or supraclavicular lymphadenopathy. LUNGS: Clear to auscultation and percussion bilaterally. HEART: Regular rate and rhythm. No gallops, murmurs, clicks, or rubs. ABDOMEN: Soft and lax. No tenderness. No hepatosplenomegaly. No masses. EXTREMITIES: No cyanosis, clubbing, or edema. LYMPHATICS: No peripheral lymphadenopathy. NEUROLOGICAL: Conscious, alert, and oriented times three. No focal motor or sensory deficits. PSYCHIATRIC: Mood and affect appear normal. SKIN: No skin rash, bruise, or purpuric eruption. DIAGNOSTIC DATA Pending. ASSESSMENT 1. Rectal adenocarcinoma status post colonoscopy done on October 06, 2017, which showed two masses, one at 20 cm from the anal verge and the biopsy came back positive for invasive moderately-differentiated adenocarcinoma arising from adenomatous polyp. Microsatellite instability high is negative. No lymphovascular invasion identified. There was another rectal mass at 0-1 cm from the anal verge, which was not biopsied. CT abdomen/pelvis done on October 08, 2017 showed multiple lymph nodes in the left common iliac, right common iliac, internal iliac, retroperitoneal lymph nodes and also in the perirectal fat. They were small lymph nodes. The largest in the left common iliac was about 1.3 cm. There were two masses, an irregular soft tissue mass extending from the left lateral wall of the rectum about 4.2 cm extending into and appears to invade the left levator ani muscle. There was another mass 4.6 cm at the rectosigmoid junction. The patient had a colonoscopy by Dr. Horton on October 27, 2017 and, per his report, there was only one mass extending through the wall of the rectum into the rectosigmoid junction so it was only one mass. Biopsy of the rectal mass came back positive for tubovillous adenoma. Given this information, patient started neoadjuvant chemotherapy with FOLFOX chemotherapy started on November 17, 2017, to be followed by chemoradiation, to be followed by surgery. She received four cycles of chemotherapy so far and I am planning to proceed with her fifth cycle as per schedule. Her tumor marker with CEA dropped from 11 to 9.3 to 7.8 She is doing fine currently. I am planning to see her again in two weeks with CBC, chem panel and CEA. f 2. Increased uptake of the oropharynx by PET scan. The patient has been seen by Dr. Ralph Cook and ENT exam did not reveal any masses at that area. PLAN 1. FOLFOX chemotherapy. This will be cycle number five. 2. CBC, chem panel to be checked weekly. 3. Patient to contact us for any new concerns or complaints. MTDD
[2018-01-12 08:51] VITALS: BP 158/96
[2018-01-12] MEDS: LIDOCAINE/SOD BICARB 8.4% SYR ID PRN (09:12)
[2018-01-12] MEDS: NS(*) 0.9% 500 ML BAG 500 ML IV PRN (09:12)
[2018-01-12] MEDS: PALONOSETRON 0.25 MG/5 ML VIAL IVP PRN (10:11)
[2018-01-12] MEDS: DEXAMETHASONE SOD PHOS 10MG/ML IVP PRN (10:12)
[2018-01-12] MEDS: DEXTROSE 5%(*) 100 ML BAG 100 ML IVPB PRN (10:43)
[~2018-01-14] VITALS: Ht 167 cm; Wt 153.3 kg
[~2018-01-14 11:30] MED LIST changes: +ALTEPLASE RECOMB 2 MG VIAL IVP PRN; +D5W IV ONE; +D5W IVPB ONE; +FLUOROURACIL 50 MG/ML SDV IVP ONE; +FLUOROURACIL IV ONE; +LEUCOVORIN CAL IV ONE; +NS 0.9% IV ONE; +NS(*) 0.9% 100 ML BAG 100 ML IVPB PRN; +NS(*) 0.9% 1000 ML BAG 1,000 ML IV PRN; +ONDA4TAB PO; +OXALIPLATIN IVPB ONE; +PROC10TA4 PO; +WATER FOR INJ,STERILE 20 ML IVP PRN
[2018-01-14] MEDS: HEPARIN FLSH (PORT) 500 UN/5ML IVP PRN (11:36)
[2018-01-14 11:37] VITALS: BP 151/87
== END 2018-01-18 ==
LOC: SPU 11:30
PROVIDERS: ATTEND Internal Medicine Hematology
DX: Z51.11 Encounter for antineoplastic chemotherapy (principal); C18.7 Malignant neoplasm of sigmoid colon; E11.9 Type 2 diabetes mellitus without complications; E66.9 Obesity, unspecified
CPT/HCPCS: 36415; 82378; 83615; 85025; 85027; 96366; 96367; 96368; 96375; 96411; 96413; 96415; 96416; 99203; 99212; J0640; J1100; J1642; J2469; J7030; J7040; J7060; J9190; J9263; 82040; 82247; 82310; 82374; 82435; 82565; 82947; 84075; 84132; 84155; 84295; 84450; 84460; 84520

== ENCOUNTER → 2018-03-16 | Outpatient (CLI) | payer OTHER ==
[~2018-03-16] MED LIST changes: -ALTEPLASE RECOMB 2 MG VIAL IVP PRN; -D5W IV ONE; -D5W IVPB ONE; -FLUOROURACIL 50 MG/ML SDV IVP ONE; -FLUOROURACIL IV ONE; +IOPAMIDOL 76% 75 ML INFUS BTL 75 ML ONE; -LEUCOVORIN CAL IV ONE; -NS 0.9% IV ONE; -NS(*) 0.9% 100 ML BAG 100 ML IVPB PRN; -NS(*) 0.9% 1000 ML BAG 1,000 ML IV PRN; -OXALIPLATIN IVPB ONE; +OXYC-373 PO; -WATER FOR INJ,STERILE 20 ML IVP PRN
--- NOTE | 2018-03-16 11:38 | RADIOLOGY IMAGING REPORT ---
FACILITY: [facility] [place] PATIENT NAME: Rachel Marshall : 1980 MR: [id number] V: [id number] EXAM DATE: ORDERING PHYSICIAN: SONY LOZANO TECHNOLOGIST: Location: [facility] [place] Patient: Rachel Marshall : 1980 Visit/Account:[id number] Date of Sevice: 03/16/2018 CHEST W W/O CONTRAST History: Rectal cancer diagnosed in October, axillary lymphadenopathy ADDITIONAL CLINICAL HISTORY: None TECHNIQUE: Contiguous axial images were performed through the chest to the level of the adrenal gla nds with and without IV contrast. Coronal and sagittal reformatting was also performed.Dose Lowerin g Technique One of the following dose optimization techniques was utilized in the performance of this exam: Autom ated exposure control; adjustment of the mA and/or kV according to the patient's size; or use of an i terative reconstruction technique. Specific details can be referenced in the facility's radiology C T exam operational policy. Contrast: 75 mL Isovue-370 COMPARISON STUDIES: CT abdomen pelvis October 08, 2017. Lungs / Pleura: There is no evidence of pulmonary nodules pulmonary infiltrates or pleural effusion s Mediastinum/nodes: There is a 1.2 x 1.1 cm right hilar lymph node. There are small fatty replaced p retracheal and prevascular space lymph nodes. Small fatty replaced lymph nodes are also noted in bot h axillary regions Heart and vessels: There Is an implanted right-sided port distal tip projects in superior vena cava Musculoskeletal / Body wall: There spondylotic changes of the thoracic spine this is most prominent at T6-7. Upper abdomen: There are post surgical changes from a cholecystectomy. Spleen is incompletely imag ed although appears enlarged and is mildly heterogeneous. The 2.2 x 1.6 cm right adrenal nodule appears unchanged in size IMPRESSION: No evidence of pulmonary nodules, pulmonary infiltrates or pleural effusions There is a 1.2 x 1.1 cm right hilar lymph node. There are small fatty replaced pretracheal prevascular space and bilateral axillary lymph nodes Postsurgical changes from cholecystectomy Splenomegaly The 2.2 x 1.6 cm indeterminate right adrenal nodule appears unchanged. Report Dictated By: Shirley Winn MD at 03/16/2018 11:13 AM Report E-Signed By: Shirley Winn MD at 03/16/2018 11:33 AM WSN:[email or web address]
== END ==
LOC: CT 03-11 14:16
PROVIDERS: ATTEND Surgery
DX: C20 Malignant neoplasm of rectum (principal); R59.0 Localized enlarged lymph nodes; R91.1 Solitary pulmonary nodule; Z90.49 Acquired absence of other specified parts of digestive tract; R16.1 Splenomegaly, not elsewhere classified; E27.9 Disorder of adrenal gland, unspecified
CPT/HCPCS: 71270; Q9967

== ENCOUNTER 2018-04-11 12:30 | Outpatient (RCR) | payer SELFPAY ==
[~2018-04-11 12:30] MED LIST changes: -IOPAMIDOL 76% 75 ML INFUS BTL 75 ML ONE
--- NOTE | 2018-04-11 15:20 | PT PLAN OF CARE ---
Physician: Katie Hussein MD Patient is being seen: 1+x/MO Therapist: Nadia Sanchez, PT, DPT, CLT Medical Diagnosis: Rectal Adenocarcinoma Treatment Diagnosis: Rectal Adenocarcinoma, Low back pain Date of Onset: 12/02/17 Date of Initial Evaluation: 12/01/17 Date patient was last seen: 04/11/18 Number of treatments: 5 Number of cancellations/No shows: 0 INTERVENTIONS: Manual Therapy/STM/MET Strengthening/condition Ice/Heat Range of Motion Spinal Stabilization Ultrasound Stretching Iontophoresis Neuromuscular Re-ed Closed Chain Program Electrical Stim Posture/Body mechanics Gait Trg/Balance Trg Biofeedback Home Exercise Program Mech./Manual Traction Therapeutic Activities Pelvic Floor GOALS: In 1 MO pt will report no back pain for improved function with ADL's. MET In 2 MO pt will maintain ECOG performance status of grade 2 or less for maintenance of function with ADL's. In 4 MO pt will maintain FACT-G score of 90 or greater for maintenance of function with ADL's. In 4 MO pt will maintain ECOG performance status of grade 2 or less for maintenance of function with ADL's. PATIENT'S GOAL: Maintain function with ongoing oncological status, decreased low back pain. Status of Patient's Goals: In Progress Patient Compliance: Good Prognosis: Good Reasons for continuing therapy: Rachel shows good maintenance of physical function with ADL's at this time. However, pt has accumulated few side effects including neuropathy, constipation, and persistent back pain. With recent change in pain nature with radiation out B ribs from a T11-12 level, thoracic motion was assessed. Pt had no pain present at the time so preferential direction was un- established with mechanical origin still unknown. Pt was started a program for repeated thoracic extension secondary to subjective information about commonality of pain. Throughout the next week pt is to continue with repeated extension and assess if pain has changed indicating musculoskeletal origin. If pain worsens pt is to start repeated thoracic flexion to correct. Pt to be assessed at next chemo for status on pain. ROM: Lumbar ROM: flexion: full without pain, ext: minimally restricted and painful, L rot: full no pain, R rot: minimally restricted no pain, B SB: full no pain. Special Tests: Leonel Lumbar Screen: Repeated flexion: decreased lumbar pain, repeated ext: increased pain. Mobility: ECOG performance status: grade 1 Outcome Measures: Functional Assessment of Cancer Therapy (FACT-General) EVAL: PWB: , SWB: , EWB: , FWB: 24.08/09, total: 96.5/108 Functional Assessment of Cancer Therapy (FACT-General) EVAL: PWB: , SWB: , EWB: , FWB: 23.08/09, total: 90.5/108 If you have any questions or concerns please feel free to contact me at [phone]. Thank you, Nadia Sanchez, PT, DPT, CLT MTDD
== END 2018-04-11 18:00 | disposition home or self-care (01) ==
LOC: PT 12:30
PROVIDERS: ATTEND Internal Medicine Hematology
DX: M54.5 Low back pain (principal); C26.0 Malignant neoplasm of intestinal tract, part unspecified

== ENCOUNTER 2018-04-15 11:15 | Outpatient (RCR) | payer SELFPAY ==
[2018-01-21 10:51] LABS: PLATELET COUNT, AUTOMATED 277 K/uL (150-450)
[2018-01-21 10:56] VITALS: BP 154/104
--- NOTE | 2018-01-22 07:32 | NUR ---
SW faxed financial assistance information to [facility] per pt's request.
--- NOTE | 2018-01-22 17:00 | EL-TARABILY ONCOLOGY NOTE ---
EVENT DATE: January 21, 2018 DIAGNOSIS Rectal adenocarcinoma. CHIEF COMPLAINT The patient is here today for followup of her rectal cancer on neoadjuvant chemotherapy with FOLFOX. ONCOLOGY HISTORY Patient is a 37-year-old woman who had right carpal tunnel surgery three months ago, and the patient took narcotics with related development of constipation. Patient was given stool softeners for that, but she developed rectal bleeding and dyschezia. She went to Urgent Care where she has been on three or four occasions and has been diagnosed with internal and external hemorrhoids. She was taking Preparation-H with minimal amount of benefit, but she continues to have rectal pain, so the patient requested to see a specialist. 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 She had a colonoscopy done on the September, which showed a malignant mass, a partially obstructing tumor at 20 cm from the anal verge which was biopsied. There was also a rectal mass zero to 1 cm from the anal verge, but it was not biopsied. The pathology of the 20 cm mass from the anal verge came back positive for moderately differentiated adenocarcinoma arising in an adenomatous polyp with high-grade dysplasia. High-grade dysplasia and invasive tumor involved with the edges of the biopsy. No lymphovascular invasion identified. Microsatellite instability high came back negative. She had a CT abdomen and pelvis done on the September which showed irregular soft tissue mass extending from the left lateral wall of the rectum, extending into and appeared to invade the left levator ani muscle about 4.2 cm. There was an additional heterogenous soft tissue density mass at the rectosigmoid junction about 4.6 cm. There were multiple lymph nodes in the left common iliac and the right common iliac, internal iliac lymph nodes bilaterally, left common iliac internal iliac lymph nodes, multiple small lymph nodes identified in the perirectal fat, and there were scattered retroperitoneal lymph nodes, but the lymph nodes were less than 1.5 cm in size. PET/CT scan done on October 28, 2017, did reveal fullness of the rectal area with fairly significant bulkiness into the perirectal fat and SUV in the low 20s. There was also some activity in the right lateral mucosa/perimucosal region of the oropharynx with SUV of 3 which is nonspecific, but no masses could be appreciated. The patient also had a colonoscopy with biopsy done by Dr. Horton on October 27, 2017, and I discussed the case with Dr. Horton. He found that the rectal mass and the colon mass both are one mass with intraluminal spread through the hughes which is only one mass, and the biopsy of the rectal mass came back tubovillous adenoma. Patient started neoadjuvant chemotherapy with FOLFOX on November 17, 2017. HISTORY OF PRESENT ILLNESS Patient is here today for cycle #6 of FOLFOX neoadjuvant treatment for her rectal adenocarcinoma. She is complaining of gaseous distention all the time, and [employer] did not work for her. She is complaining also of some achiness after her chemotherapy. She continues to have neuropathy and tingling and numbness in her hands. PAST MEDICAL HISTORY 1. Obesity. 2. Type 2 diabetes. PAST SURGICAL HISTORY 1. times four. 2. Right carpal tunnel release surgery times two. 3. Cholecystectomy. FAMILY HISTORY Patient had ovarian cancer in her paternal grandmother. Maternal aunt with breast cancer. Paternal uncle with colon cancer in his 40s. SOCIAL HISTORY Patient is with four children. She worked for [employer], but not currently as she is on a medical leave now. Denies any abuse of tobacco, alcohol, or illicit drugs. She is a never smoker lady. CURRENT MEDICATIONS 1. Ketorolac 10 mg tablet every four hours p.r.n. for pain. 2. Ibuprofen p.r.n. for pain. ALLERGIES No known drug allergies. REVIEW OF SYSTEMS CONSTITUTIONAL: No appetite or weight change. No fever, chills, or sweating. No recent infection. HEENT: Ears: No tinnitus or hearing problem. Nose: No nasal discharge or epistaxis. Throat: No sore throat or mouth ulcers. Eyes: No diplopia or visual changes. RESPIRATORY: No shortness of breath. No cough, expectoration, or hemoptysis. CARDIOVASCULAR: No chest pain, orthopnea, or paroxysmal nocturnal dyspnea (PND). No edema. No palpitations. GASTROINTESTINAL: She has bloating and gaseous distention. No nausea or vomiting. No diarrhea or constipation. No change in bowel movements. No heartburn or swallowing difficulties. No abdominal pain. No jaundice. No hematemesis, melena, or rectal bleeding. GENITOURINARY: No hematuria or dysuria. MUSCULOSKELETAL: She has achiness after her chemotherapy. NEUROLOGICAL: She has tingling and numbness in her hands. No headaches or convulsions. HEMATOLOGIC/LYMPHATIC: No bleeding or easy bruising. No weakness or fatigue. No enlarged lymph nodes. SKIN: No skin rash or lumps. PSYCHIATRIC: No anxiety or depression. PHYSICAL EXAMINATION GENERAL: Looks stable. Well developed, well nourished, and in no acute distress. VITAL SIGNS: Blood pressure 154/104, pulse 85 per minute, respirations 18 per minute, temperature 97.1, pulse ox 97% on room air. HEENT: Head: Atraumatic. No sinus tenderness to palpation. Eyes: No icterus or conjunctivitis. Mouth and throat: No oral thrush or mucositis. NECK: Supple. No cervical or supraclavicular lymphadenopathy. LUNGS: Clear to auscultation and percussion bilaterally. HEART: Regular rate and rhythm. No gallops, murmurs, clicks, or rubs. ABDOMEN: Soft and lax. No tenderness. No hepatosplenomegaly. No masses. EXTREMITIES: No cyanosis, clubbing, or edema. LYMPHATICS: No peripheral lymphadenopathy. NEUROLOGICAL: Conscious, alert, and oriented times three. No focal motor or sensory deficits. PSYCHIATRIC: Mood and affect appear normal. SKIN: No skin rash, bruise, or purpuric eruption. DIAGNOSTIC DATA CBC shows white count 5.8, hemoglobin 12, hematocrit 37.7, platelets 277,000. CEA is 4.4, down from 4.5. Chem panel is still pending. ASSESSMENT 1. Rectal adenocarcinoma status post colonoscopy done October 06, 2017, which showed two masses, one at 20 cm from the anal verge and the biopsy came back positive for invasive, moderately-differentiated adenocarcinoma arising from an adenomatous polyp. Microsatellite instability high is negative. No lymphovascular invasion identified. There was another rectal mass at zero to 1 cm from the anal verge which was not biopsied. CT abdomen and pelvis done October 08, 2017, showed multiple lymph nodes in the left common iliac, right common iliac, internal iliac, retroperitoneal lymph nodes and also in the perirectal fat. They were small lymph nodes in the left common iliac, right common iliac, internal iliac, retroperitoneal lymph nodes, and also in the perirectal fat. There were small lymph nodes. The largest in the left common iliac was 1.3 cm. There were two masses and an irregular soft tissue mass extending from the left lateral wall of the rectum about 4.2 cm, extending into and appears to invade the left levator ani muscle. There was another mass 4.6 cm at the rectosigmoid junction. The patient had a colonoscopy by Dr. Horton on October 27, 2017, and per his report, there was only one mass extending through the wall of the rectum into the rectosigmoid junction, so it was only one mass. Biopsy of the rectal mass came back positive for tubulovillous adenoma. Given this information, patient started neoadjuvant chemotherapy with FOLFOX. Chemotherapy started November 17, 2017, to be followed by chemoradiation, to be followed by surgery. She received five cycles of chemotherapy so far, and I am planning to proceed with her sixth cycle as per schedule. The tumor marker with CEA dropped from 11 to 9.3 to 7.8 to 4.5 to 4.4, and she is doing fine currently except for gaseous distention. I am planning to see her again in two weeks with CBC, chemistry panel, and CEA. 2. Increased uptake of the oropharynx by PET scan. Patient seen by Dr. Ralph Cook, and ENT exam did not reveal any masses at that area. 3. Gaseous distention. Patient was advised to use Gas-X, which did not work, so patient was advised to use charcoal pills. PLAN 1. FOLFOX chemotherapy. This will be cycle #6. 2. CBC and chem panel to be checked weekly. 3. Patient to return in two weeks with CBC, chem panel, and CEA. 4. Patient to contact us for any new concerns or complaints. [facility]
[2018-01-26 08:48] VITALS: BP 140/101
[2018-01-26] MEDS: LIDOCAINE/SOD BICARB 8.4% SYR ID PRN (08:56)
[2018-01-26] MEDS: NS(*) 0.9% 500 ML BAG 500 ML IV PRN ×2 (08:56→09:34)
[2018-01-26] MEDS: DEXAMETHASONE SOD PHOS 10MG/ML IVP PRN (09:29)
[2018-01-26] MEDS: PALONOSETRON 0.25 MG/5 ML VIAL IVP PRN (09:30)
--- NOTE | 2018-01-26 15:30 | Medical Nutrition Therapy ---
Nutrition Anthropometrics Height (Inches): 65.80 Height (Calculated Centimeters: 167.1320 Weight (Pounds): 334 BMI: 54.4 Hx Weight Loss: Yes (pt states her weight 6 months ago was 365lbs - ~30lb wt loss ) Nutritional Education Nutrition Education Topic: Other (Eating hints during Cancer Treatment ) Learning Readiness: Interested Teaching Methods: Discussion, Handout Response to Teaching: Verbalize understanding Teaching Recipient: Patient Nutrition Counseling: Reviewed handout on Eating during Cancer Treatment, discussed potential nutrition impact symptoms and encouraged patient to review information she maybe experiencing, currently she is experience excessive bloating, no constipation. She takes Miralax as needed for constipation. She watches her sugar intake due to her diabetes and tries to eat healthy. I provided her a handout on Gas and discuss foods that may cause gas. She states she will try to avoid gas producing foods and take the Miralax as needed. Nutrition Monitoring & Eval Nutrition Goals: Eat 90-100% Meal, Drink > 2 liters/day Nutritional Goals Comment: Maintain wt, avoid gas causing foods, reduce bloating discomfort Nutrition Follow-Up: Fair Intake RD Patient Assessment Time: [address] Assessment Type: RD Education Patient Nutrition Acuity: 2-Moderate Nutritional Comment: I encourage her to call or let RN know if she would like to discuss any nutrition issues with me. BECKY BARNEY RDN, ETHAN Jan 26, 2018 15:30
[2018-01-28] MEDS: HEPARIN FLSH (PORT) 500 UN/5ML IVP PRN (11:29)
[2018-02-02 13:21] VITALS: BP 140/106
[2018-02-02 13:34] LABS: PLATELET COUNT, AUTOMATED 275 K/uL (150-450)
--- NOTE | 2018-02-07 12:42 | NUR ---
Pt called SW to request letter for workers comp. stating that she couldn't undergo medical testing at this time due to her chemotherapy. 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 SAVANAH completed letter and will touch base with pt for specific fax number and send letter.
[2018-02-09 08:57] VITALS: BP 143/94
[2018-02-09] MEDS: LIDOCAINE/SOD BICARB 8.4% SYR ID PRN (09:11)
[2018-02-09] MEDS: NS(*) 0.9% 500 ML BAG 500 ML IV PRN (09:12)
[2018-02-09] MEDS: DEXAMETHASONE SOD PHOS 10MG/ML IVP PRN (09:43)
[2018-02-09] MEDS: PALONOSETRON 0.25 MG/5 ML VIAL IVP PRN (09:43)
[2018-02-11] MEDS: HEPARIN FLSH (PORT) 500 UN/5ML IVP PRN (11:33)
--- NOTE | 2018-02-15 11:45 | NUR ---
SAVANAH faxed the previous mentioned letter. SAVANAH requested gas cards from [facility] and received email confirmation that gas cards were put in the mail this AM for this patient.
[2018-02-18 10:47] VITALS: BP 143/92
[2018-02-18 11:08] LABS: PLATELET COUNT, AUTOMATED 225 K/uL (150-450)
--- NOTE | 2018-02-18 11:13 | NUR ---
Pt requested assistance with faxing [employer] application. SW faxed application. Pt gave SW copies of most recent check stubs to keep on file in case further income documentation was needed for assistance.
--- NOTE | 2018-02-19 15:05 | EL-TAR[facility] ONCOLOGY NOTE ---
EVENT DATE: February 18, 2018 DIAGNOSIS Rectal adenocarcinoma. CHIEF COMPLAINT Patient is here today for followup of her rectal cancer on neoadjuvant chemotherapy with FOLFOX. ONCOLOGY HISTORY Patient is a 37-year-old woman who had right carpal tunnel surgery three months ago, and the patient took narcotics with related development of constipation. Patient was given stool softeners for that, but she developed rectal bleeding and dyschezia. She went to Urgent Care where she has been on three or four occasions and has been diagnosed with internal and external hemorrhoids. She was taking Preparation-H with minimal amount of benefit, but she continues to have rectal pain, so the patient requested to see a specialist. The patient was referred to a echo technician in [place]. She had a colonoscopy done on the September, which showed a malignant mass, a partially obstructing tumor at 20 cm from the anal verge which was biopsied. There was also a rectal mass zero to 1 cm from the anal verge, but it was not biopsied. The pathology of the 20 cm mass from the anal verge came back positive for moderately differentiated adenocarcinoma arising in an adenomatous polyp with high-grade dysplasia. High-grade dysplasia and invasive tumor involved with the edges of the biopsy. No lymphovascular invasion identified. Microsatellite instability high came back negative. She had a CT abdomen and pelvis done on the September which showed irregular soft tissue mass extending from the left lateral wall of the rectum, extending into and appeared to invade the left levator ani muscle about 4.2 cm. There was an additional heterogenous soft tissue density mass at the rectosigmoid junction about 4.6 cm. There were multiple lymph nodes in the left common iliac and the right common iliac, internal iliac lymph nodes bilaterally, left common iliac internal iliac lymph nodes, multiple small lymph nodes identified in the perirectal fat, and there were scattered retroperitoneal lymph nodes, but the lymph nodes were less than 1.5 cm in size. PET/CT scan done on October 28, 2017, did reveal fullness of the rectal area with fairly significant bulkiness into the perirectal fat and SUV in the low 20s. There was also some activity in the right lateral mucosa/perimucosal region of the oropharynx with SUV of 3 which is nonspecific, but no masses could be appreciated. The patient also had a colonoscopy with biopsy done by Dr. Horton on October 27, 2017, and I discussed the case with Dr. Horton. He found that the rectal mass and the colon mass both are one mass with intraluminal spread through the hughes which is only one mass, and the biopsy of the rectal mass came back tubovillous adenoma. Patient started neoadjuvant chemotherapy with FOLFOX on November 17, 2017. Patient received eight cycles of FOLFOX chemotherapy, completed on the February. HISTORY OF PRESENT ILLNESS Patient is here today for cycle #8 of FOLFOX neoadjuvant treatment for her rectal adenocarcinoma. She is complaining of soreness in her body for a few days after her chemotherapy. 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 She is also weak, tired, and fatigued occasionally. PAST MEDICAL HISTORY 1. Obesity. 2. Type 2 diabetes. PAST SURGICAL HISTORY 1. times four. 2. Right carpal tunnel release surgery times two. 3. Cholecystectomy. FAMILY HISTORY Patient had ovarian cancer in her paternal grandmother. Maternal aunt with breast cancer. Paternal uncle with colon cancer in his 40s. SOCIAL HISTORY Patient is with four children. She worked for [employer], but not currently as she is on a medical leave now. Denies any abuse of tobacco, alcohol, or illicit drugs. She is a never smoker lady. CURRENT MEDICATIONS 1. Ketorolac 10 mg tablet every four hours p.r.n. for pain. 2. Ibuprofen p.r.n. for pain. ALLERGIES No known drug allergies. REVIEW OF SYSTEMS CONSTITUTIONAL: No appetite or weight change. No fever, chills, or sweating. No recent infection. HEENT: Ears: No tinnitus or hearing problem. Nose: No nasal discharge or epistaxis. Throat: No sore throat or mouth ulcers. Eyes: No diplopia or visual changes. RESPIRATORY: No shortness of breath. No cough, expectoration, or hemoptysis. CARDIOVASCULAR: No chest pain, orthopnea, or paroxysmal nocturnal dyspnea (PND). No edema. No palpitations. GASTROINTESTINAL: No nausea or vomiting. No diarrhea or constipation. No change in bowel movements. No heartburn or swallowing difficulties. No abdominal pain. No jaundice. No hematemesis, melena, or rectal bleeding. GENITOURINARY: No hematuria or dysuria. MUSCULOSKELETAL: Patient has soreness in her body after chemotherapy. NEUROLOGIC: She has neuropathy especially in the hands and feet after exposure to cold. HEMATOLOGIC/LYMPHATIC: No bleeding or easy bruising. She is weak, tired, and fatigued occasionally. No enlarged lymph nodes. SKIN: No skin rash or lumps. PSYCHIATRIC: No anxiety or depression. PHYSICAL EXAMINATION GENERAL: Looks stable. Well developed, well nourished, and in no acute distress. VITAL SIGNS: Blood pressure 143/92, pulse 80 per minute, respirations 17 per minute, temperature 97.9, pulse ox 98 % on room air. HEENT: Head: Atraumatic. No sinus tenderness to palpation. Eyes: No icterus or conjunctivitis. Mouth and throat: No oral thrush or mucositis. NECK: Supple. No cervical or supraclavicular lymphadenopathy. LUNGS: Clear to auscultation and percussion bilaterally. HEART: Regular rate and rhythm. No gallops, murmurs, clicks, or rubs. ABDOMEN: Soft and lax. No tenderness. No hepatosplenomegaly. No masses. EXTREMITIES: No cyanosis, clubbing, or edema. LYMPHATICS: No peripheral lymphadenopathy. NEUROLOGICAL: Conscious, alert, and oriented times three. No focal motor or sensory deficits. PSYCHIATRIC: Mood and affect appear normal. SKIN: No skin rash, bruise, or purpuric eruption. DIAGNOSTIC DATA CBC shows white count 5.3, hemoglobin 11.4, hematocrit 36, platelets 225,000. CEA is 4.3, down from 4.5. ASSESSMENT 1. Rectal adenocarcinoma status post colonoscopy done October 06, 2017, which showed two masses, one at 20 cm from the anal verge and the biopsy came back positive for invasive, moderately differentiated adenocarcinoma arising from an adenomatous polyp. Microsatellite instability high is negative. No lymphovascular invasion identified. There was another rectal mass at zero to 1 cm from the anal verge which was not biopsied. CT abdomen and pelvis done October 08, 2017, showed multiple lymph nodes in the left common iliac, right common iliac, internal iliac, retroperitoneal lymph nodes and also in the perirectal fat. There were small lymph nodes in the left common iliac, right common iliac, right internal iliac, retroperitoneal lymph nodes, and also in the perirectal fat. The largest in the left common iliac was 1.3 cm. There were two masses and an irregular soft tissue mass extending from the left lateral wall of the rectum about 4.2 cm, extending into and appears to invade the left levator ani muscle. There was another mass 4.6 cm at the rectosigmoid junction. The patient had a colonoscopy done by Dr. Horton on October 27, 2017, and per his report, there was only one mass extending through the wall of the rectum into the rectosigmoid junction, so it was only one mass. Biopsy of the rectal mass came back positive for tubulovillous adenoma. Patient started neoadjuvant chemotherapy with FOLFOX. Chemotherapy started November 17, 2017, and patient completed seven cycles. She is due for her last cycle of chemotherapy which will be cycle #8 on the February, so she will complete her chemotherapy on the February. Plan after that to have PET/CT scan and repeat colonoscopy, and the patient after that will start chemoradiation, to be followed by surgery. She has tolerated treatment very well so far. Her tumor marker with CEA dropped from 11 and currently 4.3. I am planning to proceed with her eighth cycle on the February, and I will see her three weeks from now with CBC, chemistry panel, CEA, and PET/CT scan. I will send the patient to Dr. Horton for repeat colonoscopy as per recommendation of radiation oncologist. I will call and arrange with the radiation oncologist to start chemoradiation in three to four weeks from now. 2. Increased uptake of the oropharynx by PET/CT scan. Patient has been seen by Dr. Ralph Cook, and the ENT exam did not reveal any masses at that area. 3. Gaseous distention after chemotherapy, stable. PLAN 1. FOLFOX chemotherapy. This will be cycle #8. 2. CBC and chem panel to be checked weekly. 3. Patient to return in three weeks with CBC, chem panel, CEA, and PET/CT scan. 4. Refer to Dr. Horton for repeat colonoscopy prior to chemoradiation. 5. Patient to contact us for any new concerns or complaints. [facility]
[2018-02-23 08:52] VITALS: BP 141/99
[2018-02-23] MEDS: DEXAMETHASONE SOD PHOS 10MG/ML IVP PRN (09:48)
[2018-02-23] MEDS: PALONOSETRON 0.25 MG/5 ML VIAL IVP PRN (09:48)
[2018-02-23] MEDS: NS(*) 0.9% 500 ML BAG 500 ML IV PRN (09:49)
[2018-02-23 13:00] VITALS: BP 162/102
[2018-02-25 11:06] VITALS: BP 139/91
[2018-02-25] MEDS: HEPARIN FLSH (PORT) 500 UN/5ML IVP PRN (11:06)
--- NOTE | 2018-02-28 10:19 | NUR ---
SAVANAH sent informative email to Danielle in the business office about the anticipated costs for the pt's next regimen.
--- NOTE | 2018-03-04 08:13 | NUR ---
SAVANAH rec'd confirmation that the pt was approved for the colon screening program for a free colonoscopy. SAVANAH notified Danielle in the business office and the patient.
[2018-03-04 13:18] VITALS: BP 150/104
[2018-03-04 13:36] LABS: PLATELET COUNT, AUTOMATED 183 K/uL (150-450)
--- NOTE | 2018-03-05 00:33 | [facility] ONCOLOGY NOTE ---
EVENT DATE: March 04, 2018 DIAGNOSIS Rectal adenocarcinoma. CHIEF COMPLAINT Patient is here today for followup of her rectal cancer, on neoadjuvant chemotherapy with FOLFOX. ONCOLOGY HISTORY Patient is a 37-year-old woman who had right carpal tunnel surgery three months ago, and the patient took narcotics with related development of constipation. Patient was given stool softeners for that, but she developed rectal bleeding and dyschezia. She went to Urgent Care where she has been on three or four occasions and has been diagnosed with internal and external hemorrhoids. She was taking Preparation-H with minimal amount of benefit, but she continues to have rectal pain, so the patient requested to see a specialist. The patient was referred to a syrup shed supervisor in [place]. She had a colonoscopy done on the September, which showed a malignant mass, a partially obstructing tumor at 20 cm from the anal verge which was biopsied. There was also a rectal mass zero to 1 cm from the anal verge, but it was not biopsied. The pathology of the 20 cm mass from the anal verge came back positive for moderately differentiated adenocarcinoma arising in an adenomatous polyp with high-grade dysplasia. High-grade dysplasia and invasive tumor involved with the edges of the biopsy. No lymphovascular invasion identified. Microsatellite instability high came back negative. She had a CT abdomen and pelvis done on the September which showed irregular soft tissue mass extending from the left lateral wall of the rectum, extending into and appeared to invade the left levator ani muscle about 4.2 cm. There was an additional heterogenous soft tissue density mass at the rectosigmoid junction about 4.6 cm. There were multiple lymph nodes in the left common iliac and the right common iliac, internal iliac lymph nodes bilaterally, left common iliac internal iliac lymph nodes, multiple small lymph nodes identified in the perirectal fat, and there were scattered retroperitoneal lymph nodes, but the lymph nodes were less than 1.5 cm in size. PET/CT scan done on October 28, 2017, did reveal fullness of the rectal area with fairly significant bulkiness into the perirectal fat and SUV in the low 20s. There was also some activity in the right lateral mucosa/perimucosal region of the oropharynx with SUV of 3 which is nonspecific, but no masses could be appreciated. The patient also had a colonoscopy with biopsy done by Dr. Horton on October 27, 2017, and I discussed the case with Dr. Horton. He found that the rectal mass and the colon mass both are one mass with intraluminal spread through the hughes which is only one mass, and the biopsy of the rectal mass came back tubovillous adenoma. Patient started neoadjuvant chemotherapy with FOLFOX on November 17, 2017. Patient received eight cycles of FOLFOX chemotherapy, completed on the February. HISTORY OF PRESENT ILLNESS Patient is here today for followup of her rectal adenocarcinoma after neoadjuvant chemotherapy with FOLFOX for her rectal adenocarcinoma. 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 PAST MEDICAL HISTORY 1. Obesity. 2. Type 2 diabetes. PAST SURGICAL HISTORY 1. times four. 2. Right carpal tunnel release surgery times two. 3. Cholecystectomy. FAMILY HISTORY Patient had ovarian cancer in her paternal grandmother. Maternal aunt with breast cancer. Paternal uncle with colon cancer in his 40s. SOCIAL HISTORY Patient is with four children. She worked for [employer] but not currently as she is on a medical leave now. Denies any abuse of tobacco, alcohol, or illicit drugs. She is a never-smoker lady. CURRENT MEDICATIONS 1. Ketorolac 10 mg tablet every four hours p.r.n. for pain. 2. Ibuprofen p.r.n. for pain. ALLERGIES No known drug allergies. REVIEW OF SYSTEMS CONSTITUTIONAL: No appetite or weight change. No fever, chills or sweating. No recent infection. HEENT: Ears: No tinnitus or hearing problem. Nose: No nasal discharge or epistaxis. Throat: No sore throat or mouth ulcers. Eyes: No diplopia or visual changes. RESPIRATORY: No shortness of breath. No cough, expectoration or hemoptysis. CARDIOVASCULAR: No chest pain, orthopnea, or paroxysmal nocturnal dyspnea (PND). No edema. No palpitations. GASTROINTESTINAL: No nausea or vomiting. No diarrhea or constipation. No change in bowel movements. No heartburn or swallowing difficulties. No abdominal pain. No jaundice. No hematemesis, melena or rectal bleeding. GENITOURINARY: No hematuria or dysuria. MUSCULOSKELETAL: No pain in the muscles, joints or bones. NEUROLOGICAL: Patient has neuropathy in her hands. HEMATOLOGIC/LYMPHATIC: No bleeding or easy bruising. No weakness or fatigued. No enlarged lymph nodes. SKIN: No skin rash or lumps. PSYCHIATRIC: No anxiety or depression. PHYSICAL EXAMINATION GENERAL: Looks stable. Well-developed, well-nourished, and in no acute distress. VITAL SIGNS: Blood pressure 150/101, pulse 91 per minute, respirations 16 per minute, temperature 97.9, pulse oximetry 99% on room air. HEENT: Head: Atraumatic. No sinus tenderness to palpation. Eyes: No icterus or conjunctivitis. Mouth and throat: No oral thrush or mucositis. NECK: Supple. No cervical or supraclavicular lymphadenopathy. LUNGS: Clear to auscultation and percussion bilaterally. HEART: Regular rate and rhythm. No gallops, murmurs, clicks or rubs. ABDOMEN: Soft and lax. No tenderness. No hepatosplenomegaly. No masses. EXTREMITIES: No cyanosis, clubbing or edema. LYMPHATICS: No peripheral lymphadenopathy. NEUROLOGICAL: Conscious, alert and oriented times three. No focal motor or sensory deficits. PSYCHIATRIC: Mood and affect appear normal. SKIN: No skin rash, bruise or purpuric eruption. DIAGNOSTIC DATA CBC showed white count 4000, hemoglobin 11.2, hematocrit 34.9, platelets 183,000 CEA is 4.4, which is stable, up from 4.3. PET/CT scan showed significant decrease in the size and activity of the rectal mass and the perirectal masses, consistent with response to therapy. There are hypermetabolic lymph nodes in the bilateral groin and bilateral axillae, concerning for tasha metastases. No definite intrathoracic or intra-abdominal metastases. No focal liver lesions. ASSESSMENT 1. Rectal adenocarcinoma status post colonoscopy done October 06, 2017, which showed two masses, one at 20 cm from the anal verge, and the biopsy came back positive for invasive, moderately differentiated adenocarcinoma arising from an adenomatous polyp. Microsatellite instability high is negative. No lymphovascular invasion identified. There was another rectal mass at 0 to 1 cm from the anal verge which was not biopsied. CT abdomen and pelvis October 08, 2017, showed multiple lymph nodes in the left common iliac, right common iliac, internal iliac, retroperitoneal lymph nodes and in the perirectal fat. The largest lymph node was in the left common iliac, and it was 1.3 cm. There were two masses and an irregular soft tissue mass extending from the left lateral wall of the rectum, about 4.2 cm, extending into and appearing to invade the left levator ani muscle. There was another mass, 4.6 cm, at the rectosigmoid junction. Patient had a colonoscopy done by Dr. Horton on October 27, 2017, and per his report, there was only one mass extending through the wall fo the rectum into the rectosigmoid junction, so it was only one mass, not two masses. Biopsies of the rectal mass came back positive for tubulovillous adenoma. Patient started neoadjuvant chemotherapy with FOLFOX. She received eight cycles between November 17, 2017, and 25 February 2018. Patient had a repeat PET/CT scan done on 03 March 2018, which did reveal significant decrease in the size and activity of the rectal mass and the perirectal masses compared to the previous PET scan. There are hypermetabolic lymph nodes in the bilateral groin and bilateral axillae, concerning for tasha metastases. No definite intrathoracic or intra-abdominal metastases. No focal liver lesions. Patient had repeat colonoscopy on [address] Horton, and from his note it seems that the rectal mass is responding to the treatment. It is smaller compared to the previous colonoscopy done before. Her CEA dropped from 11 and currently is 4.4. I am planning to refer the patient to the radiation oncologist to coordinate for chemoradiation of the rectal mass. I am planning to treat her with weekly 5FU intravenous continuous infusion during the radiation therapy, and after that, patient will go for surgical resection. I explained that to the patient. She is agreeable with the plan of management. 2. Bilateral axillary lymph node by PET scan done on 03 March 2018. I am planning to refer the patient to Dr. Horton for possible evaluation and biopsy. 3. Patient to return in one week after starting 5FU intravenous continuous infusion with CBC, chem panel, and CEA. 4. Patient to contact us for any new concerning or complaints. PLAN: 1. Consult Dr. Benavides for biopsy of axillary LN 2. Chemotherapy with 5FU IVCI concurrent with XRT and coordinate to start treatment together 3. Consider surgery after end of chemoradiation by 4-6 weeks 4. RTC prior to start chemotherapy with CBC/CMP/CEA 5. Patient to contact us for any concerns or complaints MTDD
--- NOTE | 2018-03-10 14:16 | PURVIANCE CONSULTATION ---
EVENT DATE: March 10, [address] Hussein. DIAGNOSIS Rectal adenocarcinoma. CHIEF COMPLAINT Discussion of neoadjuvant chemoradiation therapy. HISTORY OF PRESENT ILLNESS The patient is a 37-year-old woman who was diagnosed with a rectosigmoid adenocarcinoma approximately 20 cm back in October 2017. The patient had presented with rectal bleeding. The patient underwent colonoscopy and was noted to have a partially circumferential mass located 20 cm from the anal verge, which on biopsy was positive for a moderately differentiated adenocarcinoma. The patient underwent a CT scan, which did show several borderline lymph nodes within the pelvis. A PET CT scan showed a hypermetabolic mass with extension to the perirectal fat. The patient's tumor was, therefore, radiographically staged a T3 N2 based on borderline pelvic lymphadenopathy. The patient was initiated on neoadjuvant chemotherapy and received FOLFOX for 8 cycles from November 17, 2017, completed on February 25, 2018. The patient has tolerated chemoradiation therapy well. The patient does have significant peripheral neuropathy. The patient has undergone a re-staging PET CT scan on March 04, 2018, which shows significant decrease in size and FDG avidity of her rectal mass. There are hypermetabolic lymph nodes in the groin and bilateral axilla which are progressed in FDG uptake and are concerning for malignancy. There are, otherwise, no significant findings on PET scan. The patient has followed with Dr. March, who has reviewed her PET scan results and is referring her back to Dr. Horton for possible biopsy of her axillary nodes. Dr. Horton did do a re- staging colonoscopy on March 02, 2018, which noted interval decrease in size of the rectal mass, which is still present. There are no other significant findings on colonoscopy. On presentation today, the patient denies any diarrhea. She has no rectal bleeding or fecal incontinence. PAST MEDICAL HISTORY 1. Obesity. 2. Type 2 diabetes. 3. Rectal adenocarcinoma, see HPI. 4. Status post x4. 5. Status post cholecystectomy. FAMILY HISTORY Paternal grandmother with ovarian cancer, maternal with breast cancer. Paternal uncle with colon cancer in his 40's. SOCIAL HISTORY The patient is with four children. No significant tobacco, alcohol or drug use. CURRENT MEDICATIONS 1. Ketorolac. 2. Ibuprofen. ALLERGIES No known drug allergies. REVIEW OF SYSTEMS A 14-point review of systems is reviewed and signed and documented in the chart. PHYSICAL EXAMINATION VITAL SIGNS: Temperature 97.4, pulse 89, blood pressure 123/84, respiratory rate 16, O2 saturation 94% on room air. CONSTITUTIONAL AND GENERAL APPEARANCE: The patient is a well-appearing female sitting comfortably in the chair in no acute distress. HEENT: Pupils are equal, round and reactive to light and accommodation. Extraocular movements are intact. There are no lesions of the oropharynx. NECK: Supple. Trachea is midline. LYMPHATIC SURVEY: No palpable supraclavicular lymphadenopathy bilaterally. LUNGS: Clear to auscultation and percussion bilaterally. CARDIOVASCULAR: Regular rate and rhythm. Normal S1 and S2. No murmurs, rubs or gallops. ABDOMEN: Soft and nontender with active bowel sounds. No hepatosplenomegaly. EXTREMITIES: No edema, clubbing or cyanosis. NEUROLOGIC: The patient is alert and oriented x3. IMPRESSION The patient is a 37-year-old woman with a rectosigmoid adenocarcinoma located 20 cm from the anal verge, T3 N2 based on radiographic staging. The patient has completed neoadjuvant chemotherapy with 8 cycles of FOLFOX. The patient on re- staging PET CT scan does have somewhat suspicious hypermetabolic lymph nodes of bilateral groin and axilla. The patient has been referred to Dr. Horton to consider excisional biopsy of one of these lymph nodes for restaging. The patient presents today to discuss neoadjuvant chemoradiation therapy. PLAN The patient was apprised that neoadjuvant chemoradiation therapy would be indicated both for her stage 3 colorectal cancer as well as in the scenario of her having distant metastatic disease. The advocacy of neoadjuvant chemoradiation therapy in the stage 3 setting was discussed at length with the patient including improvement in disease-free survival as well as colostomy-free survival. The side effect profile of chemoradiation therapy was discussed at length with the patient. The patient has signed written informed consent to undergo neoadjuvant chemoradiation therapy. She will undergo CT scan today for planning simulation purposes. We will tentatively plan to start the patient on March 21, 2018, with concurrent 5-FU infusional. The patient is scheduled to meet with Dr. Horton tomorrow to discuss biopsy of her axilla. [facility]
[2018-03-18 11:46] VITALS: BP 157/103
[2018-03-18 11:49] LABS: PLATELET COUNT, AUTOMATED 211 K/uL (150-450)
--- NOTE | 2018-03-22 13:00 | NUR ---
SW mailed requested info to [facility] per patients request. SW also emailed information including medicaid denial, current income, and mailing address to [facility] [employer] [facility] per patent's request.
--- NOTE | 2018-03-22 13:05 | NUR ---
SW also provided the patient with a letter explaining the necessity of her treatment (letter to support her mother having to take time off to be with her for treatment).
[~2018-04-15] VITALS: Ht 167.1 cm; Wt 153.5 kg
[~2018-04-15 11:15] MED LIST changes: +ALTEPLASE RECOMB 2 MG VIAL IVP PRN; +D5W IV ONE; +D5W IVPB ONE; +DEXTROSE 5%(*) 100 ML BAG 100 ML IVPB PRN; +FLUOROURACIL 50 MG/ML SDV IVP ONE; +FLUOROURACIL IV ONE; +LEUCOVORIN CAL IV ONE; +NS 0.9% IV ONE; +NS(*) 0.9% 100 ML BAG 100 ML IVPB PRN; +OXALIPLATIN IVPB ONE; +WATER FOR INJ,STERILE 20 ML IVP PRN
== END 2018-04-21 ==
LOC: SPU 11:15
PROVIDERS: ATTEND Internal Medicine Hematology
DX: Z51.11 Encounter for antineoplastic chemotherapy (principal); C18.7 Malignant neoplasm of sigmoid colon; E11.9 Type 2 diabetes mellitus without complications; E66.9 Obesity, unspecified; R14.0 Abdominal distension (gaseous)
CPT/HCPCS: 36415; 77290; 82378; 85025; 85027; 96367; 96368; 96375; 96413; 96415; 96416; 99212; J0640; J1100; J1642; J2469; J7040; J7060; J9190; J9263; 82040; 82247; 82310; 82374; 82435; 82565; 82947; 84075; 84132; 84155; 84295; 84450; 84460; 84520

== ENCOUNTER 2018-05-03 12:30 | Outpatient (RCR) | payer SELFPAY ==
[~2018-05-03 12:30] MED LIST changes: -ALTEPLASE RECOMB 2 MG VIAL IVP PRN; -D5W IV ONE; -D5W IVPB ONE; -DEXTROSE 5%(*) 100 ML BAG 100 ML IVPB PRN; -FLUOROURACIL 50 MG/ML SDV IVP ONE; -FLUOROURACIL IV ONE; -LEUCOVORIN CAL IV ONE; -NS 0.9% IV ONE; -NS(*) 0.9% 100 ML BAG 100 ML IVPB PRN; -OXALIPLATIN IVPB ONE; -WATER FOR INJ,STERILE 20 ML IVP PRN
[2018-05-17] MEDS ORDERED: GOLYTE PO (10:48)
== END 2018-06-27 ==
LOC: RAON 12:30
PROVIDERS: ATTEND Radiology Radiation Oncology
DX: Z51.0 Encounter for antineoplastic radiation therapy (principal); C20 Malignant neoplasm of rectum
CPT/HCPCS: 77280; 77300; 77301; 77336; 77338; 77386

== ENCOUNTER 2018-05-06 11:30 | Outpatient (RCR) | payer SELFPAY ==
[2018-03-28 12:21] VITALS: BP 154/102
--- NOTE | 2018-03-30 15:49 | NUR ---
Pt completed HADS assessment - D:1, A:4 - no concerns at this time.
[2018-04-04 12:13] VITALS: BP 140/99
[2018-04-04] MEDS: LIDOCAINE/SOD BICARB 8.4% SYR ID PRN (12:26)
--- NOTE | 2018-04-06 11:45 | NUR ---
SW emailed [facility] financial assisted the additional requested information ('s January check stubs and March unemployment letter).
[2018-04-08 11:55] VITALS: BP 135/95
[2018-04-08 12:00] LABS: PLATELET COUNT, AUTOMATED 168 K/uL (150-450)
--- NOTE | 2018-04-08 13:17 | EL-TARABILY ONCOLOGY NOTE ---
EVENT DATE: April 08, 2018 DIAGNOSIS Rectal adenocarcinoma. CHIEF COMPLAINT Patient is here today for followup of her rectal cancer, on neoadjuvant chemotherapy with FOLFOX. ONCOLOGY HISTORY Patient is a 37-year-old woman who had right carpal tunnel surgery three months ago, and the patient took narcotics with related development of constipation. Patient was given stool softeners for that, but she developed rectal bleeding and dyschezia. She went to Urgent Care where she has been on three or four occasions and has been diagnosed with internal and external hemorrhoids. She was taking Preparation-H with minimal amount of benefit but she continues to have rectal pain so the patient requested to see a specialist. The patient was referred to a manager agricultural in [place]. She had a colonoscopy done on the September, which showed a malignant mass, a partially obstructing tumor at 20 cm from the anal verge which was biopsied. There was also a rectal mass zero to 1 cm from the anal verge but it was not biopsied. The pathology of the 20 cm mass from the anal verge came back positive for moderately differentiated adenocarcinoma arising in an adenomatous polyp with high-grade dysplasia. High-grade dysplasia and invasive tumor involved with the edges of the biopsy. No lymphovascular invasion identified. Microsatellite instability high came back negative. She had a CT abdomen and pelvis done on the September which showed irregular soft tissue mass extending from the left lateral wall of the rectum, extending into and appeared to invade the left levator ani muscle about 4.2 cm. There was an additional heterogenous soft tissue density mass at the rectosigmoid junction about 4.6 cm. There were multiple lymph nodes in the left common iliac and the right common iliac, internal iliac lymph nodes bilaterally, left common iliac internal iliac lymph nodes, multiple small lymph nodes identified in the perirectal fat, and there were scattered retroperitoneal lymph nodes, but the lymph nodes were less than 1.5 cm in size. PET/CT scan done on October 28, 2017, did reveal fullness of the rectal area with fairly significant bulkiness into the perirectal fat and SUV in the low 20s. There was also some activity in the right lateral mucosa/perimucosal region of the oropharynx with SUV of 3 which is nonspecific, but no masses could be appreciated. The patient also had a colonoscopy with biopsy done by Dr. Horton on October 27, 2017, and I discussed the case with Dr. Horton. He found that the rectal mass and the colon mass both are one mass with intraluminal spread through the hughes which is only one mass, and the biopsy of the rectal mass came back tubovillous adenoma. Patient started neoadjuvant chemotherapy with FOLFOX on November 17, 2017. Patient received eight cycles of FOLFOX chemotherapy, completed on the February. HISTORY OF PRESENT ILLNESS Patient is here today for followup of her rectal adenocarcinoma, on neoadjuvant chemoradiation for her rectal adenocarcinoma. She is doing fine currently except for having some constipation and she had some rectal bleeding once yesterday but patient was eating a lot of Jalapenos the same day. She has some abdominal pain. She is achy sometimes but she is weak, tired and fatigued. PAST MEDICAL HISTORY 1. Obesity. 2. Type 2 diabetes. PAST SURGICAL HISTORY 1. times four. 2. Right carpal tunnel release surgery times two. 3. Cholecystectomy. FAMILY HISTORY Patient had ovarian cancer in her paternal grandmother. Maternal aunt with breast cancer. Paternal uncle with colon cancer in his 40s. SOCIAL HISTORY Patient is with four children. She worked for [employer], but not currently as she is on a medical leave now. Denies any abuse of tobacco, alcohol, or illicit drugs. She is a never-smoker lady. CURRENT MEDICATIONS 1. Ketorolac 10 mg tablet every four hours p.r.n. for pain. 2. Ibuprofen p.r.n. for pain. ALLERGIES No known drug allergies. REVIEW OF SYSTEMS CONSTITUTIONAL: No appetite or weight change. No fever, chills or sweating. No recent infection. HEENT: Ears: No tinnitus or hearing problem. Nose: No nasal discharge or epistaxis. Throat: No sore throat or mouth ulcers. Eyes: No diplopia or visual changes. RESPIRATORY: No shortness of breath. No cough, expectoration or hemoptysis. CARDIOVASCULAR: No chest pain, orthopnea, or paroxysmal nocturnal dyspnea (PND). No edema. No palpitations. GASTROINTESTINAL: She has constipation. She had one episode of rectal bleeding yesterday. She has also some abdominal pain occasionally. She is weak, tired and fatigued. GENITOURINARY: No hematuria or dysuria. MUSCULOSKELETAL: She feels achy all the time. NEUROLOGICAL: Patient has neuropathy in her hands. HEMATOLOGIC/LYMPHATIC: She is weak, tired and fatigued. SKIN: No skin rash or lumps. PSYCHIATRIC: No anxiety or depression. PHYSICAL EXAMINATION GENERAL: Looks stable. Well-developed, well-nourished, and in no acute distress. VITAL SIGNS: Blood pressure 135/95, pulse 90 per minute, respirations 16 per minute, temperature 98.1, pulse oximetry 98% on room air. HEENT: Head: Atraumatic. No sinus tenderness to palpation. Eyes: No icterus or conjunctivitis. Mouth and throat: No oral thrush or mucositis. NECK: Supple. No cervical or supraclavicular lymphadenopathy. LUNGS: Clear to auscultation and percussion bilaterally. HEART: Regular rate and rhythm. No gallops, murmurs, clicks or rubs. ABDOMEN: Soft and lax. No tenderness. No hepatosplenomegaly. No masses. EXTREMITIES: No cyanosis, clubbing or edema. LYMPHATICS: No peripheral lymphadenopathy. NEUROLOGICAL: Conscious, alert and oriented times three. No focal motor or sensory deficits. PSYCHIATRIC: Mood and affect appear normal. SKIN: No skin rash, bruise or purpuric eruption. DIAGNOSTIC DATA CBC showed white count 3.5, hemoglobin 11.2, hematocrit 34.6, platelet 168,000. ANC is 2.6. Chem panel is totally normal except sodium 136, creatinine 0.4, blood sugar 202, AST 66, ALT 60. CEA is 7.3, which is up from 4.5. ASSESSMENT 1. Rectal adenocarcinoma, status post colonoscopy done October 06, 2017, which showed two masses, one at 20 cm from the anal verge, and the biopsy came back positive for invasive, moderately differentiated adenocarcinoma arising from an adenomatous polyp. Microsatellite instability high is negative. No lymphovascular invasion identified. There was another rectal mass at 0 to 1 cm from the anal verge, which was not biopsied. CT abdomen and pelvis October 08, 2017, showed multiple lymph nodes in the left common iliac, right common iliac, internal iliac, retroperitoneal lymph nodes and in the perirectal fat. The largest lymph node was in the left common iliac and it was 1.3 cm. There were two masses and an irregular soft tissue mass extending from the left lateral wall of the rectum, about 4.2 cm, extending into and appearing to invade the left levator ani muscle. There was another mass, 4.6 cm, at the rectosigmoid junction. Patient had a colonoscopy done by Dr. Horton on October 27, 2017, and per his report, there was only one mass extending through the wall of the rectum into the rectosigmoid junction so there was only one mass, not two masses. Biopsies of the rectal mass came back positive for tubulovillous adenoma. Patient started neoadjuvant chemotherapy with FOLFOX. She received eight cycles between November 17, 2017, and February 25, 2018. Her repeat PET/CT scan done on March 03, 2018, revealed significant decrease in the size and activity of the rectal mass and the perirectal masses compared to the previous PET scan. There are hypermetabolic lymph nodes in the bilateral groin and bilateral axillae, concerning for tasha metastases. No definite intrathoracic or intra- abdominal metastases. No focal liver lesions. She had a repeat colonoscopy on March 02, 2018, by Dr. Horton, and from his note it seems that the rectal mass is responding to the treatment. CEA dropped from 11 to 4.4 and currently it is 7.3. I am planning to continue to monitor the CEA to see if this actually effectuation of the marker or it continues to rise. Patient was sent to Dr. Horton for further evaluation of the bilateral axillary lymph node positivity by PET scan but it seems to me there were no lymph nodes to biopsy. She is currently receiving chemoradiation with 5-FU intravenous continuous infusion together with radiation therapy given weekly. She finished two weeks so far and next week will be her third cycle. I am planning to see her on a weekly basis with CBC, chem panel and CEA. 2. Bilateral axillary lymph node by PET scan done on March 03, 2018. No lymph nodes were found by Dr. Horton to biopsy. PLAN: 1. 5-FU intravenous continuous infusion weekly. 2. Patient to return in one week with CBC, chem panel and CEA. 3. Patient to contact us for any new concerns or complaints. MTDD
[2018-04-08] MEDS: HEPARIN FLSH (PORT) 500 UN/5ML IVP PRN (14:21)
[2018-04-11 12:05] VITALS: BP 167/97
[2018-04-11] MEDS: LIDOCAINE/SOD BICARB 8.4% SYR ID PRN (12:22)
--- NOTE | 2018-04-15 15:00 | RADIOLOGY IMAGING REPORT ---
FACILITY: [facility] [place] PATIENT NAME: Rachel Marshall : 1980 MR: [id number] V: [id number] EXAM DATE: ORDERING PHYSICIAN: SHRUTHI WEEKS TECHNOLOGIST: Location: [facility] Patient: Rachel Marshall : 1980 Visit/Account:[id number] Date of Sevice: 04/15/2018 CT CHEST ABDOMEN PELVIS W/CON HISTORY: Rectal cancer diagnosed in October 2017, rising tumor markers ADDITIONAL HISTORY: None. TECHNIQUE: Following administration of IV contrast axial images acquired through the chest abdomen a nd pelvis during the portal venous phase. Coronal and sagittal reformatting was also performed.Dose Lowering Technique One of the following dose optimization techniques was utilized in the performance of this exam: Autom ated exposure control; adjustment of the mA and/or kV according to the patient's size; or use of an i terative reconstruction technique. Specific details can be referenced in the facility's radiology C T exam operational policy. CONTRAST: 75 mL Isovue-370, 800 mL of water as an oral contrast COMPARISON: CT abdomen pelvis October 08, [address] of the chest March 16, 2018 FINDINGS: CHEST: Lungs/Pleura: There is no evidence of pulmonary nodules, pulmonary infiltrates or pleural effusions Mediastinum/lymph nodes: There are small fatty replaced prevascular space and pretracheal lymph node s appear unchanged previously noted 1.2 x 1 cm right hilar lymph node is no longer seen and was likel y reactive Heart/vessels: Right-sided implanted port again seen with distal tip in superior vena cava Bones/soft tissues: Spondylotic changes in the thoracic spine appear unchanged ABDOMEN AND PELVIS: Hepatobiliary: There postsurgical changes from a cholecystectomy. Again noted is hepatomegaly with liver measuring 24.1 cm in length relatively unchanged Spleen: Spleen is enlarged measuring 14.3 cm in length slightly increased in size previously measuri ng 13.4 cm Pancreas: Negative. Adrenals: 2.2 x 1.6 cm indeterminate right adrenal mass remains stable Kidneys ureters and bladder : Again noted is scarring of the upper pole the right kidney. The bladde r is decompressed therefore not ideally evaluated Genitalia: Negative GI: Previously noted soft tissue density mass projecting along the anterior left side of the rectum appears to abut the posterior left wall of the vagina has decreased in size now measuring 1.3 x 1.2 cm x 1.2 cm as opposed to 4.6 x 3.2 x 4.5 cm. The irregular soft tissue mass extending from the left lateral wall the rectum extending to the left levator ani muscle is also decreased in size and now m easures 1.3 x 1 x 1.5 cm as opposed to 2.8 x 2.6 x 4.2 cm Irregular thickening the wall the rectum appears relatively unchanged. Mild diverticulosis left-sided colon again seen Vessels/spaces/nodes: Previously noted left common iliac lymph node now measures 1.2 x 0.7 cm as opp osed 1.3 x 1 cm and is best seen on image 148 of series 2 The previously noted 1.1 x 0.7 cm right common iliac lymph node and the previous noted bilateral inte rnal iliac lymph nodes are decreased in size .. The previously noted small lymph nodes in the perirectal fat or decreased in size. The previously no fabiana 8 x 8 mm lymph node is barely perceptible Bones/soft tissues: Mild spondylotic changes at L5-S1 again noted Additional findings: None pertinent. IMPRESSION: The previously noted soft tissue density masses projecting along the anterior left side of the rectum and along the left lateral wall of the rectum both have decreased in size as described above. There has been a decrease in the pelvic adenopathy as detailed above Irregular thickening of the rectal wall appears relatively unchanged 2.2 x 1.6 cm indeterminate right adrenal mass has remained stable Spleen is enlarged slightly increased from 13.4 cm length of 14.3 cm Hepatomegaly remains unchanged Previously noted right hilar lymph nodes a longer seen Additional chronic finding as described Report Dictated By: Shirley Winn MD at 04/15/2018 2:26 PM Report E-Signed By: Shirley Winn MD at 04/15/2018 2:55 PM WSN:[email or web address]
--- NOTE | 2018-04-15 16:46 | NUR ---
SW emailed [facility] additional financial documentation.
--- NOTE | 2018-04-15 20:47 | ONCOLOGY FOLLOW UP NOTE ---
EVENT DATE: April 15, 2018 CHIEF COMPLAINT Followup for rectal adenocarcinoma. HISTORY OF PRESENT ILLNESS Patient is a 37-year-old female who was seen today in followup. She continues on continuous infusion 5-FU with concurrent radiation. Pump is being disconnected today. Most recently, her CEA had been increasing from 4.4 in February to 7.3 on 03/28/18 and 8.0 on 04/11/18. She will undergo CT of the chest, abdomen, and pelvis today. She has had some recent nausea as well as diarrhea, although states the diarrhea is now resolving. ONCOLOGY HISTORY Patient is a 37-year-old female who developed constipation postoperatively, followed by rectal bleeding and dyschezia. She was diagnosed with both internal and external hemorrhoids, but continued to have rectal pain. She underwent colonoscopy on 10/06/17, which showed a partially obstructing malignant mass at 20 cm from the anal verge. Pathology was positive for a moderately differentiated adenocarcinoma with high-grade dysplasia and invasive tumor involving the edges of the biopsy. No lymphovascular invasion noted. Microsatellite instability high was negative. CT of the abdomen and pelvis on 10/09/17 showed multiple lymph nodes. She completed eight cycles of neoadjuvant FOLFOX from 11/17/17 through 02/25/18. She began concurrent chemoradiation with infusional 5-FU on 03/28/18. MEDICAL HISTORY 1. Rectal adenocarcinoma, September 2017. 2. Obesity. 3. Type 2 diabetes. SURGICAL HISTORY 1. times four. 2. Right carpal tunnel release times two. 3. Cholecystectomy. FAMILY HISTORY Ovarian cancer in her paternal grandmother. Maternal aunt with breast cancer. Paternal uncle with colon cancer in his 40s. SOCIAL HISTORY Patient is . She has four children. She worked at [employer], but is currently on medical leave. She does not smoke or drink alcohol or use illicit drugs. MEDICATIONS 1. Levemir. 2. Ketorolac p.r.n. 3. Metformin 500 mg b.i.d. 4. MiraLAX. ALLERGIES No known drug allergies. REVIEW OF SYSTEMS A 12-point review of systems is performed and is negative except as stated above. PHYSICAL EXAMINATION VITAL SIGNS: Blood pressure 167/97, pulse 88, respirations 16, temp 97.9, O2 sat 95%. GENERAL: Patient is a well-developed, well-nourished female in no acute distress. HEAD: Normocephalic, atraumatic. EYES: Sclerae anicteric. MOUTH: Moist mucous membranes. No lesions. LUNGS: Clear bilaterally. CARDIOVASCULAR: Heart rate regular, 88 per minute, without murmur, S3, or S4. EXTREMITIES: No edema. NEUROLOGIC: Nonfocal. LABORATORY No lab today. CEA 02/23/18 was 4.4, 03/28/18 was 7.3, and 04/11/18 was 8.0. IMPRESSION AND PLAN The patient is a 37-year-old female diagnosed with rectal adenocarcinoma in September 2017. Completed neoadjuvant FOLFOX from 11/17/17 through 02/25/18. Began concurrent chemoradiation with infusional 5-FU on 03/28/18. 1. Rectal adenocarcinoma. Patient will begin cycle #4 of infusional 5-FU on 04/18/18. She will continue with daily radiation. She is tolerating her treatment fairly well, although believes that FOLFOX was "easier." 2. Nausea. Describes some mild nausea without vomiting. Zofran 8 mg one p.o. q.8 hours p.r.n. is prescribed. She has been requiring one to two per day. 3. Diarrhea. Recent history of diarrhea. She has been using Imodium on a p.r.n. basis, and this has resolved as of today. 4. Increasing CEA. She will undergo CT of the chest, abdomen, and pelvis today to rule out any issues. 5. Follow up as scheduled for continued care, earlier if there is a problem. MTDD
[2018-04-18 12:19] VITALS: BP 156/97
[2018-04-18] MEDS: LIDOCAINE/SOD BICARB 8.4% SYR ID PRN (12:30)
--- NOTE | 2018-04-19 12:36 | NUR ---
Juliana and SW international nurse met with pt to discuss financial assistance applications. Pt stated she needed a letter for applying for her bill with [facility] stating that she is undergoing treatment. Juliana wrote letter and faxed to [employer] for review. Left follow up message with Charity at [facility] regarding financial aide application. Juliana wrote letter regarding diagnosis for financial assistance for her daughter's soccer league as well.
--- NOTE | 2018-04-22 17:10 | [facility] ONCOLOGY NOTE ---
EVENT DATE: April 22, 2018 DIAGNOSIS Rectal adenocarcinoma. CHIEF COMPLAINT Patient is here today for followup of her rectal cancer, on neoadjuvant chemotherapy with 5-FU intravenous continuous infusion concurrent with radiation therapy. ONCOLOGY HISTORY Patient is a 37-year-old woman who had right carpal tunnel surgery three months ago, and the patient took narcotics with related development of constipation. Patient was given stool softeners for that, but she developed rectal bleeding and dyschezia. She went to Urgent Care where she has been on three or four occasions and has been diagnosed with internal and external hemorrhoids. She was taking Preparation-H with minimal amount of benefit, but she continued to have rectal pain, so the patient requested to see a specialist. The patient was referred to a scale adjuster in [place]. She had a colonoscopy done on the September, which showed a malignant mass, a partially obstructing tumor at 20 cm from the anal verge which was biopsied. There was also a rectal mass zero to 1 cm from the anal verge, but it was not biopsied. The pathology of the 20 cm mass from the anal verge came back positive for moderately differentiated adenocarcinoma arising in an adenomatous polyp with high-grade dysplasia. High-grade dysplasia and invasive tumor involved with the edges of the biopsy. No lymphovascular invasion identified. Microsatellite instability high came back negative. She had a CT abdomen and pelvis done on the September, which showed irregular soft tissue mass extending from the left lateral wall of the rectum, extending into and appeared to invade the left levator ani muscle about 4.2 cm. There was an additional heterogenous soft tissue density mass at the rectosigmoid junction about 4.6 cm. There were multiple lymph nodes in the left common iliac, the right common iliac, the internal iliac lymph nodes bilaterally, left common iliac internal iliac lymph nodes, multiple small lymph nodes identified in the perirectal fat, and there were scattered retroperitoneal lymph nodes, but the lymph nodes were less than 1.5 cm in size. PET/CT scan done on October 28, 2017, did reveal fullness of the rectal area with fairly significant bulkiness into the perirectal fat and SUV in the low 20s. There was also some activity in the right lateral mucosa/perimucosal region of the oropharynx with SUV of 3, which is nonspecific, but no masses could be appreciated. The patient also had a colonoscopy with biopsy done by Dr. Horton on October 27, 2017, and I discussed the case with Dr. Horton. He found that the rectal mass and the colon mass both are one mass with intraluminal spread through the hughes which is only one mass, and the biopsy of the rectal mass came back tubovillous adenoma. Patient started neoadjuvant chemotherapy with FOLFOX on November 17, 2017. Patient received eight cycles of FOLFOX chemotherapy, completed on the February. HISTORY OF PRESENT ILLNESS Patient is here today for followup of her rectal adenocarcinoma, on neoadjuvant chemoradiation for rectal adenocarcinoma. She is doing fine currently. She has generalized aches and some fatigue which are accumulating with advance of her treatment. Other than that, her general condition is stable. PAST MEDICAL HISTORY 1. Obesity. 2. Type 2 diabetes. PAST SURGICAL HISTORY 1. x4. 2. Right carpal tunnel release surgery x2. 3. Cholecystectomy. FAMILY HISTORY Patient had ovarian cancer in her paternal grandmother. Maternal aunt with breast cancer. Paternal uncle with colon cancer in his 40s. SOCIAL HISTORY Patient is with four children. She worked for [employer], but not currently as she is on a medical leave now. Denies any abuse of tobacco, alcohol, or illicit drugs. She is a never-smoker lady. CURRENT MEDICATIONS 1. Ketorolac 10 mg tablet every four hours p.r.n. for pain. 2. Ibuprofen p.r.n. for pain. ALLERGIES No known drug allergies. REVIEW OF SYSTEMS CONSTITUTIONAL: No appetite or weight change. No fever, chills, or sweating. No recent infection. HEENT: Ears: No tinnitus or hearing problem. Nose: No nasal discharge or epistaxis. Throat: No sore throat or mouth ulcers. Eyes: No diplopia or visual changes. RESPIRATORY: No shortness of breath. No cough, expectoration, or hemoptysis. CARDIOVASCULAR: No chest pain, orthopnea, or paroxysmal nocturnal dyspnea (PND). No edema. No palpitations. GASTROINTESTINAL: No nausea or vomiting. No diarrhea or constipation. No change in bowel movements. No heartburn or swallowing difficulties. No abdominal pain. No jaundice. No hematemesis, melena, or rectal bleeding. GENITOURINARY: No hematuria or dysuria. MUSCULOSKELETAL: She has generalized aches. NEUROLOGICAL: No tingling or numbness in the hands or feet. No headaches or convulsions. HEMATOLOGIC/LYMPHATIC: No bleeding or easy bruising. She is weak, tired, and fatigued. No enlarged lymph nodes. SKIN: No skin rash or lumps. PSYCHIATRIC: No anxiety or depression. PHYSICAL EXAMINATION GENERAL: Looks stable. Well developed, well nourished, and in no acute distress. VITAL SIGNS: Blood pressure 130/98, pulse 82 per minute, respirations 16 per minute, temperature 98, and pulse ox 92% on room air. HEENT: Head: Atraumatic. No sinus tenderness to palpation. Eyes: No icterus or conjunctivitis. Mouth and throat: No oral thrush or mucositis. NECK: Supple. No cervical or supraclavicular lymphadenopathy. LUNGS: Clear to auscultation and percussion bilaterally. HEART: Regular rate and rhythm. No gallops, murmurs, clicks, or rubs. ABDOMEN: Soft and lax. No tenderness. No hepatosplenomegaly. No masses. EXTREMITIES: No cyanosis, clubbing, or edema. LYMPHATICS: No peripheral lymphadenopathy. NEUROLOGICAL: Conscious, alert, and oriented x3. No focal motor or sensory deficits. PSYCHIATRIC: Mood and affect appear normal. SKIN: No skin rash, bruise, or purpuric eruption. DIAGNOSTIC DATA CBC showed white count 4, hemoglobin 10.7, hematocrit 33.7, platelet 157,000. Chem panel totally normal except blood sugar 245, calcium 8.3, AST 58, AST 70. CEA is 6, which is down from 8. CT chest, abdomen, and pelvis done on the April showed shrinkage of the rectal mass from around 4.6 cm to 1.3 cm with shrinkage of all abnormal lymph nodes with the previous scan. ASSESSMENT 1. Rectal adenocarcinoma, status post colonoscopy done October 06, 2017, which showed two masses, one at 20 cm from the anal verge, and the biopsy was positive for invasive, moderately differentiated adenocarcinoma arising from an adenomatous polyp. Microsatellite instability high is negative. No lymphovascular invasion identified. There was another rectal mass at zero to 1 cm from the anal verge which was not biopsied. CT abdomen and pelvis October 08, 2017, showed multiple lymph nodes in the left common iliac, right common iliac, internal iliac, retroperitoneal lymph nodes, and in the perirectal fat. The largest lymph node was in the left common iliac, and it was 1.3. There were two masses at an irregular soft tissue mass extending from the left lateral wall of the rectum about 4.2 cm, extending into and appearing to invade the left levator ani muscle. There was another mass, 4.6 cm, at the rectosigmoid junction. Patient had a colonoscopy by Dr. Horton October 27, 2017, which showed only one mass extending through the wall of the rectum into the rectosigmoid junction, so there was only one mass, not two masses. Biopsies of the rectal mass came back positive for tubulovillous adenoma. Patient started neoadjuvant chemoradiation with FOLFOX. She received eight cycles between November 17, 2017, through February 25, 2018. Repeat PET/CT scan March 03, 2018, revealed significant decrease in the size and activity of the rectal mass and the perirectal masses compared to the previous PET scan. There were also hypermetabolic lymph nodes in the bilateral groin and bilateral axillae, concerning for tasha metastases. No definite intrathoracic or intra-abdominal metastases. No focal liver lesions. She had a repeat colonoscopy March 02, 2018, by Dr. Horton, and it seems her rectal mass is responding to the current treatment. Her CEA dropped from [address] chest, abdomen, and pelvis done on the April showed shrinkage of the tumor from 4.6 cm to 1.3 cm. I am planning to proceed with her 5-FU intravenous continuous infusion concurrent with radiation therapy as per schedule. I will see her in a week with CBC, chemistry panel, and CEA. 2. Bilateral axillary lymph nodes by PET scan done on March 03, 2018. No lymph nodes were found by Dr. Horton to biopsy. PLAN 1. Continue followup. 2. Continue 5-FU intravenous continuous infusion as per schedule. 3. Patient to return in one week with CBC, chem panel, and CEA. 4. Patient to contact us for any new concern or complaints. MTDD
[2018-04-25 12:56] VITALS: BP 137/88
[2018-04-25] MEDS: LIDOCAINE/SOD BICARB 8.4% SYR ID PRN (13:00)
[2018-04-29] MEDS: HEPARIN FLSH (PORT) 500 UN/5ML IVP PRN (14:31)
--- NOTE | 2018-04-29 21:20 | ONCOLOGY FOLLOW UP NOTE ---
EVENT DATE: April 29, 2018 CHIEF COMPLAINT Followup for rectal carcinoma. HISTORY OF PRESENT ILLNESS Patient is a 37-year-old female who was seen today during her treatment with continuous infusion 5-FU with concurrent radiation. Pump will be disconnected today. Overall, she is doing well, although describes recent nausea. She has been using Zofran which has been somewhat effective. She takes ranitidine for long-standing GERD symptoms. Most recent CT of the chest, abdomen, and pelvis showed marked improvement in her rectal mass with no evidence of metastatic disease despite elevated liver function tests and CEA. She has been having some rectal pain and uses Percocet p.r.n. ONCOLOGY HISTORY Patient is a 37-year-old female who developed constipation postoperatively, followed by rectal bleeding and dyschezia. She was diagnosed with both internal and external hemorrhoids, but continued to have rectal pain. She underwent colonoscopy on 10/06/17, which showed a partially obstructing malignant mass at 20 cm from the anal verge. Pathology was positive for a moderately differentiated adenocarcinoma with high-grade dysplasia and invasive tumor involving the edges of the biopsy. No lymphovascular invasion noted. Microsatellite instability high was negative. CT of the abdomen and pelvis on 10/09/17 showed multiple lymph nodes. She completed eight cycles of neoadjuvant FOLFOX from 11/17/17 through 02/25/18. She began concurrent chemoradiation with infusional 5-FU on 03/28/18. MEDICAL HISTORY 1. Rectal adenocarcinoma, September 2017. 2. Obesity. 3. Type 2 diabetes. SURGICAL HISTORY 1. times four. 2. Right carpal tunnel release times two. 3. Cholecystectomy. FAMILY HISTORY Ovarian cancer in her paternal grandmother. Maternal aunt with breast cancer. Paternal uncle with colon cancer in his 40s. SOCIAL HISTORY Patient is . She has four children. She worked at [employer], but is currently on medical leave. She does not smoke or drink alcohol or use illicit drugs. MEDICATIONS 1. Levemir. 2. Ketorolac p.r.n. 3. Metformin 500 mg b.i.d. 4. MiraLAX. 5. Percocet p.r.n. 6. Ranitidine. ALLERGIES No known drug allergies. REVIEW OF SYSTEMS A 12-point review of systems is performed and is negative except as stated above. PHYSICAL EXAMINATION VITAL SIGNS: BP 139/58, P 76, R 16, temp 97.9, O2 sat 92%. GENERAL: Patient is a well-developed, well-nourished female in no acute distress. HEAD: Normocephalic, atraumatic. EYES: Sclerae anicteric. MOUTH: Moist mucous membranes. LUNGS: Clear bilaterally. CARDIOVASCULAR: Heart rate regular, 76 per minute, without murmur, S3, or S4. EXTREMITIES: No edema. NEUROLOGIC: Nonfocal. LABORATORY No lab today. IMPRESSION The patient is a 37-year-old female diagnosed with rectal adenocarcinoma in September 2017. Completed neoadjuvant FOLFOX from 11/17/17 through 02/25/18. Began concurrent chemoradiation with infusional 5-FU on 03/28/18. PLAN 1. Rectal adenocarcinoma. Patient is completing her fifth week of continuous infusion 5-FU. Ivii9BT will be discontinued 05/06/18. She continues on daily radiation. 2. Nausea. Describes some nausea, but Zofran has not been terribly effective. She has long-standing GERD symptoms and uses ranitidine. I suggested a trial of omeprazole 20 mg daily for two weeks. 3. Recent diarrhea. She used Imodium, and this has now resolved. 4. CEA. CEA had increased to 8.0; however, CT of the chest, abdomen, and pelvis on 04/15/18 showed that the rectal mass had decreased from 4.6 cm to 1.3 cm. There was no evidence of metastatic disease. 5. Pain. Describes ongoing rectal pain although overall improved. Percocet 5/325mg #30 was recently prescribed. We discussed that this would not be needed in the future. 6. Follow up on 05/02/18. Her last radiation treatment will be on 05/05/18, and pump will be discontinued on 05/06/18. MTDD
[2018-05-02 08:35] VITALS: BP 148/93
[2018-05-02] MEDS: LIDOCAINE/SOD BICARB 8.4% SYR ID PRN (08:51)
[~2018-05-06] VITALS: Ht 167.1 cm; Wt 153.5 kg
[~2018-05-06 11:30] MED LIST changes: +ALTEPLASE RECOMB 2 MG VIAL IVP PRN; +D5W IV PRN; +D5W IVPB PRN; +DEXAMETHASONE SOD PHOS 10MG/ML IVP PRN; +DEXTROSE 5%(*) 100 ML BAG 100 ML IVPB PRN; +FLUOROURACIL 50 MG/ML SDV IV ONE; +FLUOROURACIL 50 MG/ML SDV IV PRN; +FLUOROURACIL IV ONE; +IOPAMIDOL 76% 50 ML INFUS BTL 100 ML ONE; +LEUCOVORIN CAL IV PRN; +NS 0.9% IV ONE; +NS(*) 0.9% 100 ML BAG 100 ML IVPB PRN; +NS(*) 0.9% 500 ML BAG 500 ML IV PRN; +OXALIPLATIN IVPB PRN; +PALONOSETRON 0.25 MG/5 ML VIAL IVP PRN; +WATER FOR INJ,STERILE 20 ML IVP PRN
[2018-05-06 12:24] VITALS: BP 151/97
[2018-05-06] MEDS: HEPARIN FLSH (PORT) 500 UN/5ML IVP PRN (13:49)
--- NOTE | 2018-05-06 14:40 | [facility] ONCOLOGY NOTE ---
EVENT DATE: May 06, 2018 DIAGNOSIS Rectal adenocarcinoma. CHIEF COMPLAINT Patient is here today for followup of her rectal cancer. ONCOLOGY HISTORY Patient is a 37-year-old woman who had right carpal tunnel surgery three months ago, and the patient took narcotics with related development of constipation. Patient was given stool softeners for that, but she developed rectal bleeding and dyschezia. She went to Urgent Care where she has been on three or four occasions and has been diagnosed with internal and external hemorrhoids. She was taking Preparation-H with minimal amount of benefit, but she continued to have rectal pain, so the patient requested to see a specialist. The patient was referred to a state game protector in [place]. She had a colonoscopy done on the September, which showed a malignant mass, a partially obstructing tumor at 20 cm from the anal verge which was biopsied. There was also a rectal mass zero to 1 cm from the anal verge, but it was not biopsied. The pathology of the 20 cm mass from the anal verge came back positive for moderately differentiated adenocarcinoma arising in an adenomatous polyp with high-grade dysplasia. High-grade dysplasia and invasive tumor involved with the edges of the biopsy. No lymphovascular invasion identified. Microsatellite instability high came back negative. She had a CT abdomen and pelvis done on the September, which showed irregular soft tissue mass extending from the left lateral wall of the rectum, extending into and appeared to invade the left levator ani muscle about 4.2 cm. There was an additional heterogenous soft tissue density mass at the rectosigmoid junction about 4.6 cm. There were multiple lymph nodes in the left common iliac, the right common iliac, the internal iliac lymph nodes bilaterally, left common iliac internal iliac lymph nodes, multiple small lymph nodes identified in the perirectal fat, and there were scattered retroperitoneal lymph nodes, but the lymph nodes were less than 1.5 cm in size. PET/CT scan done on October 28, 2017, did reveal fullness of the rectal area with fairly significant bulkiness into the perirectal fat and SUV in the low 20s. There was also some activity in the right lateral mucosa/perimucosal region of the oropharynx with SUV of 3, which is nonspecific, but no masses could be appreciated. The patient also had a colonoscopy with biopsy done by Dr. Horton on October 27, 2017, and I discussed the case with Dr. Horton. He found that the rectal mass and the colon mass both are one mass with intraluminal spread through the hughes which is only one mass, and the biopsy of the rectal mass came back tubovillous adenoma. Patient started neoadjuvant chemotherapy with FOLFOX on November 17, 2017. Patient received eight cycles of FOLFOX chemotherapy, completed on the February. Patient completed her chemoradiation therapy on the April. HISTORY OF PRESENT ILLNESS Patient is here today for followup of her rectal cancer. She is doing fine currently. She has occasional headache, and she has fatigue at times, but other than that, she is really doing very well. PAST MEDICAL HISTORY 1. Obesity. 2. Type 2 diabetes. PAST SURGICAL HISTORY 1. x4. 2. Right carpal tunnel release surgery x2. 3. Cholecystectomy. FAMILY HISTORY Patient had ovarian cancer in her paternal grandmother. Maternal aunt with breast cancer. Paternal uncle with colon cancer in his 40s. SOCIAL HISTORY Patient is with four children. She worked for [email or web address], but not currently as she is on a medical leave now. Denies any abuse of tobacco, alcohol, or illicit drugs. She is a never-smoker lady. CURRENT MEDICATIONS 1. Ketorolac 10 mg tablet every four hours p.r.n. for pain. 2. Ibuprofen p.r.n. for pain. ALLERGIES No known drug allergies. REVIEW OF SYSTEMS CONSTITUTIONAL: No appetite or weight change. No fever, chills, or sweating. No recent infection. HEENT: Ears: No tinnitus or hearing problem. Nose: No nasal discharge or epistaxis. Throat: No sore throat or mouth ulcers. Eyes: No diplopia or visual changes. RESPIRATORY: No shortness of breath. No cough, expectoration, or hemoptysis. CARDIOVASCULAR: No chest pain, orthopnea, or paroxysmal nocturnal dyspnea (PND). No edema. No palpitations. GASTROINTESTINAL: No nausea or vomiting. No diarrhea or constipation. No change in bowel movements. No heartburn or swallowing difficulties. No abdominal pain. No jaundice. No hematemesis, melena, or rectal bleeding. GENITOURINARY: No hematuria or dysuria. MUSCULOSKELETAL: No pain in the muscles, joints, or bones. NEUROLOGICAL: No tingling or numbness in the hands or feet. She has occasional headache. No convulsions. HEMATOLOGIC/LYMPHATIC: No bleeding or easy bruising. No weakness. She has occasional fatigue. No enlarged lymph nodes. SKIN: No skin rash or lumps. PSYCHIATRIC: No anxiety or depression. PHYSICAL EXAMINATION GENERAL: Looks stable. Well developed, well nourished, and in no acute distress. VITAL SIGNS: Blood pressure 151/97, pulse 79 per minute, respirations 18 per minute, temperature 97.1, pulse ox 93% on room air. HEENT: Head: Atraumatic. No sinus tenderness to palpation. Eyes: No icterus or conjunctivitis. Mouth and Throat: No oral thrush or mucositis. NECK: Supple. No cervical or supraclavicular lymphadenopathy. LUNGS: Clear to auscultation and percussion bilaterally. HEART: Regular rate and rhythm. No gallops, murmurs, clicks, or rubs. ABDOMEN: Soft and lax. No tenderness. No hepatosplenomegaly. No masses. EXTREMITIES: No cyanosis, clubbing, or edema. LYMPHATICS: No peripheral lymphadenopathy. NEUROLOGICAL: Conscious, alert, and oriented times three. No focal motor or sensory deficits. PSYCHIATRIC: Mood and affect appear normal. SKIN: No skin rash, bruise, or purpuric eruption. DIAGNOSTIC DATA CBC showed white count 4.7, hemoglobin 10.7, hematocrit 32.5, platelets 191,000. Chem panel totally normal except sodium 136, creatinine 0.5, blood sugar 160, AST 83, ALT 86. Other parameters are normal. CEA is 6, which is down from 8. ASSESSMENT 1. Rectal adenocarcinoma, status post colonoscopy done October 06, 2017, which showed two masses, one at 20 cm from the anal verge, and the biopsy was positive for invasive, moderately differentiated adenocarcinoma arising from an adenomatous polyp. Microsatellite instability high was negative, and no lymphovascular invasion identified. There was another rectal mass at zero to 1 cm from the anal verge which was not biopsied. CT abdomen and pelvis October 08, 2017, showed multiple lymph nodes in the left common iliac, right common iliac, internal iliac, retroperitoneal lymph nodes, and in the perirectal fat. The largest lymph node was in the left common iliac, and it was 1.3 cm. There were two masses, an irregular soft tissue mass extending from the left lateral wall of the rectum for about 4.2 cm, extending into and appearing to invade the left levator ani muscle. There was another mass, 4.6 cm, at the rectosigmoid junction. Patient had a colonoscopy by Dr. Horton October 27, 2017, which showed only one mass extending through the wall of the rectum into the rectosigmoid junction, so there was only one mass and not two masses. Biopsies of the rectal mass came back positive for tubulovillous adenoma. Patient started neoadjuvant chemoradiation with FOLFOX. She received eight cycles between November 17, 2017, through February 25, 2018. Repeat PET/CT scan March 03, 2018, revealed significant decrease in the size and activity of the rectal mass and the perirectal masses compared to the previous PET scan. There were also hypermetabolic lymph nodes in the bilateral groin and the bilateral axillae, concerning for tasha metastases. No definite intrathoracic or intra- abdominal metastases. No focal liver lesions. Patient had a repeat colonoscopy March 02, 2018, by Dr. Horton, and it seems her rectal mass is responding to the current treatment. Her CEA dropped from 11, and currently it is 6. CT chest, abdomen, and pelvis done on the April showed shrinkage of the tumor from 4.6 cm to 1.3 cm. Patient received neoadjuvant chemoradiation with 5-FU intravenous continuous infusion, completed on the April. I am planning to refer the patient back to Dr. Horton for surgical resection, and I will see her two weeks after her surgery with CBC, chemistry panel, and CEA. 2. Bilateral axillary lymph nodes by PET scan done on March 03, 2018. No lymph nodes were found by Dr. Horton to biopsy. PLAN 1. Continue followup. 2. Refer to Dr. Horton for surgical resection of her rectal cancer. 3. Patient to return two weeks after her surgery with CBC, chem panel, and CEA. 4. Patient to contact us for any new concern or complaints. [facility]
--- NOTE | 2018-05-06 17:55 | EL-TARABILY ONCOLOGY NOTE ---
EVENT DATE: May 06, 2018 DIAGNOSIS Rectal adenocarcinoma. CHIEF COMPLAINT Patient is here today for followup of her rectal cancer. ONCOLOGY HISTORY Patient is a 37-year-old woman who had right carpal tunnel surgery three months ago, and the patient took narcotics with related development of constipation. Patient was given stool softeners for that, but she developed rectal bleeding and dyschezia. She went to Urgent Care where she has been on three or four occasions and has been diagnosed with internal and external hemorrhoids. She was taking Preparation-H with minimal amount of benefit, but she continued to have rectal pain, so the patient requested to see a specialist. The patient was referred to a admissions dean in [place]. She had a colonoscopy done on the September, which showed a malignant mass, a partially obstructing tumor at 20 cm from the anal verge which was biopsied. There was also a rectal mass zero to 1 cm from the anal verge, but it was not biopsied. The pathology of the 20 cm mass from the anal verge came back positive for moderately differentiated adenocarcinoma arising in an adenomatous polyp with high-grade dysplasia. High-grade dysplasia and invasive tumor involved with the edges of the biopsy. No lymphovascular invasion identified. Microsatellite instability high came back negative. She had a CT abdomen and pelvis done on the September, which showed irregular soft tissue mass extending from the left lateral wall of the rectum, extending into and appeared to invade the left levator ani muscle about 4.2 cm. There was an additional heterogenous soft tissue density mass at the rectosigmoid junction about 4.6 cm. There were multiple lymph nodes in the left common iliac, the right common iliac, the internal iliac lymph nodes bilaterally, left common iliac internal iliac lymph nodes, multiple small lymph nodes identified in the perirectal fat, and there were scattered retroperitoneal lymph nodes, but the lymph nodes were less than 1.5 cm in size. PET/CT scan done on October 28, 2017, did reveal fullness of the rectal area with fairly significant bulkiness into the perirectal fat and SUV in the low 20s. The patient also had a colonoscopy with biopsy done by Dr. Horton on October 27, 2017, and I discussed the case with Dr. Horton. He found that the rectal mass and the colon mass both are one mass with intraluminal spread through the hughes which is only one mass, and the biopsy of the rectal mass came back tubovillous adenoma. Patient started neoadjuvant chemotherapy with FOLFOX on November 17, 2017. Patient received eight cycles of FOLFOX chemotherapy, completed on the February. Patient received chemoradiation after her neoadjuvant chemotherapy with chemoradiation completed on the April. HISTORY OF PRESENT ILLNESS Patient is here today for followup of her rectal adenocarcinoma. She is doing fine. She has occasional headache, and she has weakness, tiredness, and fatigue. PAST MEDICAL HISTORY 1. Obesity. 2. Type 2 diabetes. PAST SURGICAL HISTORY 1. x4. 2. Right carpal tunnel release surgery x2. 3. Cholecystectomy. FAMILY HISTORY Patient had ovarian cancer in her paternal grandmother. Maternal aunt with breast cancer. Paternal uncle with colon cancer in his 40s. SOCIAL HISTORY Patient is with four children. She worked for [employer], but not currently as she is on a medical leave now. Denies any abuse of tobacco, alcohol, or illicit drugs. She is a never-smoker lady. CURRENT MEDICATIONS 1. Ketorolac 10 mg tablet every four hours p.r.n. for pain. 2. Ibuprofen p.r.n. for pain. ALLERGIES No known drug allergies. REVIEW OF SYSTEMS CONSTITUTIONAL: No appetite or weight change. No fever, chills, or sweating. No recent infection. HEENT: Ears: No tinnitus or hearing problem. Nose: No nasal discharge or epistaxis. Throat: No sore throat or mouth ulcers. Eyes: No diplopia or visual changes. RESPIRATORY: No shortness of breath. No cough, expectoration, or hemoptysis. CARDIOVASCULAR: No chest pain, orthopnea, or paroxysmal nocturnal dyspnea (PND). No edema. No palpitations. GASTROINTESTINAL: No nausea or vomiting. No diarrhea or constipation. No change in bowel movements. No heartburn or swallowing difficulties. No abdominal pain. No jaundice. No hematemesis, melena, or rectal bleeding. GENITOURINARY: No hematuria or dysuria. MUSCULOSKELETAL: No pain in the muscles, joints, or bones. NEUROLOGIC: No tingling or numbness in the hands or feet. She has occasional headache. No convulsions. HEMATOLOGIC/LYMPHATIC: No bleeding or easy bruising. She has fatigue at times. No enlarged lymph nodes. SKIN: No skin rash or lumps. PSYCHIATRIC: No anxiety or depression. PHYSICAL EXAMINATION GENERAL: Looks stable. Well developed, well nourished, and in no acute distress. VITAL SIGNS: Blood pressure 151/97, pulse 79 per minute, respirations 18 per minute, temperature 97.1, pulse ox 93% on room air. HEENT: Head: Atraumatic. No sinus tenderness to palpation. Eyes: No icterus or conjunctivitis. Mouth and Throat: No oral thrush or mucositis. NECK: Supple. No cervical or supraclavicular lymphadenopathy. LUNGS: Clear to auscultation and percussion bilaterally. HEART: Regular rate and rhythm. No gallops, murmurs, clicks, or rubs. ABDOMEN: Soft and lax. No tenderness. No hepatosplenomegaly. No masses. EXTREMITIES: No cyanosis, clubbing, or edema. LYMPHATICS: No peripheral lymphadenopathy. NEUROLOGICAL: Conscious, alert, and oriented times three. No focal motor or sensory deficits. PSYCHIATRIC: Mood and affect appear normal. SKIN: No skin rash, bruise, or purpuric eruption. DIAGNOSTIC DATA CBC showed white count 4.7, hemoglobin 10.7, hematocrit 32.5, platelets 191,000. Chem panel totally normal except sodium 136, creatinine 0.5, blood sugar 160, AST 83, ALT 86. CEA is 6, which is down from 8. ASSESSMENT 1. Rectal adenocarcinoma, status post colonoscopy done on the September, which showed two masses, one at 20 cm from the anal verge, and the biopsy was positive for invasive, moderately differentiated adenocarcinoma arising from an adenomatous polyp. Microsatellite instability high was negative. No lymphovascular invasion identified. There was another rectal mass at zero to 1 cm from the anal verge which was not biopsied. CT abdomen and pelvis October 08, 2017, showed multiple lymph nodes in the left common iliac, right common iliac, internal iliac, retroperitoneal lymph nodes, and in the perirectal fat. The largest lymph node was in the left common iliac, and it was 1.3 cm. There were two masses, one extending from the left lateral wall of the rectum about 4.2 cm, extending into and appearing to invade the levator ani muscle. There was another mass, 4.6 cm, at the rectosigmoid junction. Patient had a colonoscopy done by Dr. Horton October 27, 2017, which showed only one mass extending through the wall of the rectum into the rectosigmoid junction, so there was only one mass and not two masses. Biopsies of the rectal mass came back positive for tubulovillous adenoma. Patient received neoadjuvant chemotherapy with FOLFOX for eight cycles, received between November 17, 2017, through February 25, 2018. Repeat PET/CT scan March 03, 2018, revealed significant decrease in the size and activity of the rectal mass and the perirectal masses compared to previous PET scan. There were also hypermetabolic lymph nodes in the bilateral groin and bilateral axillae, concerning for tasha metastases. No definite intrathoracic or intra-abdominal metastases. No focal liver lesions. She had repeat colonoscopy March 02, 2018, by Dr. Horton, and it seemed that her rectal mass was responding to her treatment. Her CEA dropped from 11, and currently it is 6. CT chest, abdomen, and pelvis done the April showed shrinkage of the tumor from 4.6 cm to 1.3 cm. Patient completed her neoadjuvant chemoradiation on the April. I am planning to refer the patient back to Dr. Horton for surgical resection, and I will see her again two weeks after her surgery with CBC, chemistry panel, and CEA. 2. Bilateral axillary lymph nodes by PET scan done March 03, 2018, but no lymph nodes were found by Dr. Horton to biopsy. PLAN 1. Continue followup. 2. Patient to return two weeks after her surgery with CBC, chem panel, and CEA. 3. Refer to Dr. Horton for surgical resection. 4. Patient to contact us for any new concern or complaints. SHABBIRD
--- NOTE | 2018-05-13 13:40 | NUR ---
SW faxed financial assistance application to [facility] per patient's request.
[2018-05-17] MEDS ORDERED: GOLYTE PO (10:48)
--- NOTE | 2018-05-20 09:57 | NUR ---
DR. zavala visited with SAVANAH today about the pt's necessity for financial assistance at [facility]. SAVANAH spoke with three people in the financial office about the situation and finally got directed to how to apply for assistance. SAVANAH completed the application and waiting for patients signature. Once this is obtained SAVANAH will fax this application.
--- NOTE | 2018-05-23 09:50 | NUR ---
SAVANAH rec'd a phone call from stating she was still receiving past due bills. SAVANAH attempted to contact [employer] and did get in touch with a quality audit representative who took the information on when the application was sent and will call back with information on the status of the application. Addendum: 05/23/18 at 0955 by PATY LECHUGA LCSW LCSW SAVANAH also emailed Romeo Borrego of [employer] indicating the same issue, since [employer] was also willing to help with the utility costs. Addendum: 05/23/18 at 1348 by PATY LECHUGA LCSW LCSW SAVANAH rec'd a call back from Romeo Divide with the [employer] program who indicated that they had exhausted all their funds this year and were not able to help the patient again.
--- NOTE | 2018-06-06 10:51 | NUR ---
Pt states she is planning to go to the [place] Medicaid office later this week to apply for [place] medicaid. She is planning to move to [place] and live with her nephew in [place]. She is still planning to get her surgery at [facility]. The pt was tearful over the phone and is worried about her kids experience having to move.
--- NOTE | 2018-06-10 13:47 | NUR ---
selena rec'd information that the pt's bills which were sent to [facility] and [employer] earlier this month have not yet been paid. SW contacted [employer] and learned that he had sent checks out to pay the bills which were included in her application the day after the application was received. It is possible that the checks had not yet been applied to the utility accounts. SELENA also attempted to contact [facility] program but there was no way to leave a message. SELENA will try again on wednesday to reach this program to find out about assistance. Addendum: 06/10/18 at 1438 by PATY LECHUGA LCSW LCSW SW also received information that the patient was no longer looking to apply for [place] medicaid because the person who she spoke with about the application said it was at least a 45 day wait before she could potentially be approved, and she needed to have surgery before then, however the surgeon would not do the surgery without insurance. PT again contacted [place] medicaid and learned that she still did not qualify for coverage, but could potentially qualify when her 's unemployment payments ran out. SELENA called [place] medicaid to confirm this information and learned that because her kids were already on medicaid, because of the change in income then her whole family could be approved. SELENA advised the pt to apply as soon as the unemployment ran out. SELENA also contacted [facility] with [employer] and notified them of this plan. The pt is scheduled to meet the surgeon on wednesday06/13/18 for a consultation.
--- NOTE | 2018-06-14 10:32 | NUR ---
SAVANAH rec'd a phone call from pt this AM who was frustrated about her appointment with Dr. Perdue at [facility] yesterday, because they did not have current medical records for her. SAVANAH prepared all medical records requested after this discussion and faxed them to Dr. Perdue's office ( ).
--- NOTE | 2018-06-16 15:39 | NUR ---
SW rec'd a confirmation that her [facility] application is being processed.
--- NOTE | 2018-06-22 11:36 | NUR ---
SAVANAH rec'd request from pt to mail a color copy of the patient's colonoscopy report to the [facility]. SAVANAH completed this request (and included all other medical records which were previously sent, as they reported to the pt they did not receive everything when it was previously faxed).
== END 2018-06-23 ==
LOC: SPU 11:30
PROVIDERS: ATTEND Internal Medicine Hematology
DX: C20 Malignant neoplasm of rectum (principal); K59.00 Constipation, unspecified; R10.9 Unspecified abdominal pain; R53.83 Other fatigue; E11.9 Type 2 diabetes mellitus without complications; E66.9 Obesity, unspecified; R59.0 Localized enlarged lymph nodes; E27.9 Disorder of adrenal gland, unspecified; R16.2 Hepatomegaly with splenomegaly, not elsewhere classified; R11.0 Nausea
CPT/HCPCS: 36415; 71260; 74177; 82378; 85025; 85027; 96416; 99212; J1642; J7040; J9190; Q9967; 82040; 82247; 82310; 82374; 82435; 82565; 82947; 84075; 84132; 84155; 84295; 84450; 84460; 84520

== ENCOUNTER 2018-05-31 00:01 | Day surgery (SDC) | payer OTHER ==
[~2018-05-31] VITALS: Ht 167.6 cm; Wt 147.0 kg
[~2018-05-31 00:01] MED LIST changes: -ALTEPLASE RECOMB 2 MG VIAL IVP PRN; -D5W IV PRN; -D5W IVPB PRN; -DEXAMETHASONE SOD PHOS 10MG/ML IVP PRN; -DEXTROSE 5%(*) 100 ML BAG 100 ML IVPB PRN; -FLUOROURACIL 50 MG/ML SDV IV ONE; -FLUOROURACIL 50 MG/ML SDV IV PRN; -FLUOROURACIL IV ONE; +GOLYTE PO; -IOPAMIDOL 76% 50 ML INFUS BTL 100 ML ONE; -LEUCOVORIN CAL IV PRN; -NS 0.9% IV ONE; -NS(*) 0.9% 100 ML BAG 100 ML IVPB PRN; -NS(*) 0.9% 500 ML BAG 500 ML IV PRN; -OXALIPLATIN IVPB PRN; -PALONOSETRON 0.25 MG/5 ML VIAL IVP PRN; -WATER FOR INJ,STERILE 20 ML IVP PRN
[2018-05-31 06:10] VITALS: BP 149/81
[2018-05-31] MEDS ORDERED: LIDOCAINE/SOD BICARB 8.4% SYR ID ONE (06:30)
[2018-05-31] MEDS ORDERED: NORMOSOL R SOLN(*) 1000 ML BAG 1,000 ML IV PRN (06:30)
[2018-05-31 07:54] VITALS: BP 115/70
[2018-05-31 08:15] VITALS: BP 114/80
--- NOTE | 2018-05-31 08:17 | Short(Outpt) Discharge Summary ---
Discharge Summary Reason for Hosp/Final Diag: (1) Rectal cancer Status: Chronic Hospital Course & Plan: Colonoscopy completed without problem. Rectal cancer visualized. It starts at anus and extends 10cm into rectum. No other colorectal lesions, polyps, or other abnormalities seen on today's exam. Departure Discharge to: Home, Self Care Discharge Instructions Home Meds Reported Medications Oxycodone Hcl/Acetaminophen (OXYCODONE-ACETAMINOPHEN 5-325) 1 Each Tablet, 1 EACH PO BID PRN for PAIN, TAB 02/25/18 Ondansetron (ZOFRAN ODT) 4 Mg Tab.rapdis, 8 MG PO Q8H for Nausea, TAB.USMAN 12/01/17 Prochlorperazine Maleate (Compazine) 10 Mg Tablet, PO PRN, #30 12/01/17 Insulin Detemir (LEVEMIR) 100 Unit/Ml Injs, 15-20 UNIT SUBQ QDAY 11/01/17 Metformin Hcl (METFORMIN HCL) 500 Mg Tablet, 1 TAB PO BID, TAB 11/01/17 Ketorolac Tromethamine (KETOROLAC TROMETHAMINE) 10 Mg Tab, 10 MG PO Q4H PRN for PAIN, TAB 10/21/17 Discontinued Reported Medications Polyethylene Glycol 3350 (MIRALAX) Unknown Strength Powd.pack, PO, PKT 10/27/17 Discontinued Scripts Peg/Electrolytes (GOLYTELY SOLUTION) 4,000 Ml Soln, 1 GAL PO ONCE, #1 GAL 0 Refills Prov:SONY LOZANO MD 05/17/18 Diet: Diabetic Activity: As Tolerated Special Instructions: Your colonoscopy was completed without problems and your prep was excellent (Good Job!!). I didn't find any other abnormalities other than the rectal cancer which looks to be small with a large central ulceration likely due to your chemo and radiation therapy. Continue working on financial assistance and get an appointment as soon as possible with the colorectal surgery clinic at [facility] in [place] to discuss your surgery with them. SONY LOZANO MD May 31, 2018 08:17
[2018-05-31 08:45] VITALS: BP 145/97
[2018-05-31 08:47] VITALS: BP 139/102
--- NOTE | 2018-05-31 09:52 | NUR ---
0757- PT. RECEIVED FROM OR VIA STRETCHER WITH THE SIDERAILS UP. SBAR RECEIVED FROM Julisa HOOKS RN AND DR. CARVALHO. PT SLEEPY BUT RESPONDS APPROPRIATELY. SEE ADMISSION ASSESSMENT. 0759- PT O2 TURNED DOWN TO 3LPM OXYMASK. 0816- PT. RETURNED TO ROOM AIR. 0845- PT. REPORTS NEEDING TO USE THE RESTROOM SO ORTHOSTATICS PREFORMED. 0850- PT. TO THE BATHROOM. 0855- PT. GETTING DRESSED. CALLED FOR RIDE. 0900- PT. STATES THAT SHE WOULD LIKE CHEESE AND CRACKERS AND SOME APPLE JUICE SO SOME PROVIDED. 0928- PT. IV TAKEN OUT. 0930- MORE CHEESE AND CRACKERS PROVIDED. 0940- STILL WAITING ON .
--- NOTE | 2018-05-31 10:18 | NUR ---
1005- HERE AND DISCHARGE INSTRUCTIONS REVIEWED WITH PT AND . 1011- PT. ACCOMPANIED OUT BY MICHELA HECTOR AND .
== END 2018-05-31 10:11 | disposition home or self-care (01) ==
LOC: OR 00:01
PROVIDERS: ATTEND Surgery
DX: Z12.11 Encounter for screening for malignant neoplasm of colon (principal); K62.9 Disease of anus and rectum, unspecified; Z85.048 Personal history of other malignant neoplasm of rectum, rectosigmoid junction, and anus; E11.9 Type 2 diabetes mellitus without complications
CPT/HCPCS: 36416; 82948

== ENCOUNTER 2018-08-05 14:42 | Emergency (ER) | payer MEDICAID, OTHER ==
[~2018-08-05 14:42] MED LIST changes: +SULF-198 PO
--- NOTE | 2018-08-05 15:26 | ER Report ---
History and Physical Time Seen By MD: 14:55 Hx. of Stated Complaint: PATIENT STATES THAT ON July THE PATIENT HAD SURGERY IN [place] FOR A REMOVAL OF A TUMOR IN HER COLON; PATIENT HAS BURNING AND ABDOMINAL PAIN AND STATES THAT SHE IS HAVING BLEEDING FROM HER STOMA HPI/ROS CHIEF COMPLAINT: Surgery competitions HISTORY OF PRESENT ILLNESS: 37-year-old female who is 2 weeks status post surgical removal of rectal adenocarcinoma and surrounding muscle, who has colostomy to sd, INDER drain, Mortensen catheter. Surgery was performed in [place] but she was to follow-up with Dr. Benavides. She states that drain tube were supposed t o be moving removed yesterday but she was told to follow-up next Wednesday with Dr. Benavides. However, she began having burning with urination today as well as noticing blood from colostomy after large stool today that continues to ooze. She denies fevers, chills, shortness breath, vomiting. She has intermittent abdominal pain which is improving, and intermittent nausea which is improving as well. She has no leg swelling or pain. REVIEW OF SYSTEMS: Constitutional: No fever, no chills. Eyes: no blurred vision ENT: No sore throat. Cardiovascular: No chest pain, no palpitations. Respiratory: No cough, no shortness of breath. Gastrointestinal: above Genitourinary: above Musculoskeletal: No back pain. Skin: no rashes, wound incisions healing Neurological: No headache. Remainder of the 14 system rev: Yes Allergies: Coded Allergies: No Known Drug Allergies (Unverified , 01/04/13) Home Meds Active Scripts Sulfamethoxazole/Trimet 800-160 Mg Tab (BACTRIM DS TABLET) 1 Each Tablet, 1 TAB PO Q12H for 14 Days, #28 TAB Prov:SONY LOZANO MD 08/05/18 Reported Medications Oxycodone Hcl/Acetaminophen (OXYCODONE-ACETAMINOPHEN 5-325) 1 Each Tablet, 1 EACH PO BID PRN for PAIN, TAB 02/25/18 Ondansetron (ZOFRAN ODT) 4 Mg Tab.rapdis, 8 MG PO Q8H for Nausea, TAB.USMAN 12/01/17 Prochlorperazine Maleate (Compazine) 10 Mg Tablet, PO PRN, #30 12/01/17 Insulin Detemir (LEVEMIR) 100 Unit/Ml Injs, 15-20 UNIT SUBQ QDAY 11/01/17 Metformin Hcl (METFORMIN HCL) 500 Mg Tablet, 1 TAB PO BID, TAB 11/01/17 Ketorolac Tromethamine (KETOROLAC TROMETHAMINE) 10 Mg Tab, 10 MG PO Q4H PRN for PAIN, TAB 10/21/17 Discontinued Scripts Sulfamethoxazole/Trimet 800-160 Mg Tab (BACTRIM DS TABLET) 1 Each Tablet, 1 TAB PO Q12H for 14 Days, #28 TAB Prov:SONY LOZANO MD 08/05/18 Reviewed Nurses Notes: Yes Hx Smoking: No Smoking Status: Never Smoker Exposure to Second Hand Smoke?: No Hx Substance Use Disorder: No Hx Alcohol Use: No Constitutional Vital Sign - Last 24 Hours 08/05/18 14:55 Temp 98.2 Pulse 96 Resp 18 B/P (MAP) 113/92 Pulse Ox 94 O2 Delivery Room Air Physical Exam General Appearance: The patient is alert, has no immediate need for airway protection and no signs of toxicity. Eyes: Pupils equal and round no pallor or injection. ENT, Mouth: Mucous membranes are moist. Respiratory: There are no retractions, lungs are clear to auscultation. Cardiovascular: Regular rate and rhythm. no m/r/g Gastrointestinal: Abdomen is soft and non tender, no masses, bowel sounds norm al. INDER drain in place with nl drainage, no surrounding erythema. Left lower quadrant colostomy in place with brown stool and slight dark blood noted. no surrounding erythema Neurological: alert, oriented Skin: Warm and dry, no rashes. Musculoskeletal: Extremities are nontender, nonswollen and have full range of motion. Rectal incision intact with serous drainage without erythema. DIFFERENTIAL DIAGNOSIS: After history and physical exam differential diagnosis was considered for uti, gi bleed, post op infection, or other emergent etiology. Medical Decision Making Data Points Result Diagram: 08/05/18 1551 08/05/18 1602 Laboratory Hematology Test 08/05/18 15:25 08/05/18 15:51 08/05/18 16:02 Urine Color Yellow Urine Clarity Clear Urine pH 6.0 pH (4.8-9.5) Urine Specific [place] 1.016 Urine Protein 30 mg/dL (NEGATIVE) Urine Glucose (UA) Negative mg/dL (NEGATIVE) Urine Ketones Negative mg/dL (NEGATIVE) Urine Blood Negative (NEGATIVE) Urine Nitrite Negative (NEGATIVE) Urine Bilirubin Negative (NEGATIVE) Urine Urobilinogen Negative mg/dL (0.2-1.9) Urine Leukocyte Esterase Moderate (NEGATIVE) Urine RBC 5 /HPF (0-2/HPF) Urine WBC 8 /HPF (0-5/HPF) Urine Squamous Epithelial Cells None /LPF (NONE-FEW) Urine Bacteria Negative /HPF (NONE-FEW) Urine Mucus Few /HPF (NONE-FEW) Red Blood Count 4.06 M/uL (4.17-5.56) Mean Corpuscular Volume 82.3 fL (80.0-96.0) Mean Corpuscular Hemoglobin 26.4 pg (26.0-33.0) Mean Corpuscular Hemoglobin Concent 32.1 g/dL (32.0-36.0) Red Cell Distribution Width 15.6 % (11.5-14.5) Mean Platelet Volume 7.1 fL (7.2-11.1) Neutrophils (%) (Auto) 75.0 % (39.4-72.5) Lymphocytes (%) (Auto) 9.8 % (17.6-49.6) Monocytes (%) (Auto) 4.3 % (4.1-12.4) Eosinophils (%) (Auto) 9.8 % (0.4-6.7) Basophils (%) (Auto) 1.1 % (0.3-1.4) Nucleated RBC Relative Count (auto) 0.1 /100WBC Neutrophils # (Auto) 5.6 K/uL (2.0-7.4) Lymphocytes # (Auto) 0.7 K/uL (1.3-3.6) Monocytes # (Auto) 0.3 K/uL (0.3-1.0) Eosinophils # (Auto) 0.7 K/uL (0.0-0.5) Basophils # (Auto) 0.1 K/uL (0.0-0.1) Nucleated RBC Absolute Count (auto) 0.00 K/uL Sodium Level 137 mmol/L (137-145) Potassium Level 4.2 mmol/L (3.5-5.0) Chloride Level 103 mmol/L (98-107) Carbon Dioxide Level 26 mmol/L (22-31) Blood Urea Nitrogen 10 mg/dl (7-18) Creatinine 0.60 mg/dl (0.52-1.04) Glomerular Filtration Rate Calc > 60.0 Random Glucose 135 mg/dl (75-110) Calcium Level 9.6 mg/dl (8.4-10.2) Total Bilirubin 0.8 mg/dl (0.2-1.3) Aspartate Amino Transf (AST/SGOT) 82 U/L (0-35) Alanine Aminotransferase (ALT/SGPT) 37 U/L (0-56) Alkaline Phosphatase 117 U/L (0-126) Total Protein 8.0 g/dl (6.3-8.2) Albumin 4.0 g/dl (3.5-5.0) Chemistry Test 08/05/18 15:25 08/05/18 15:51 08/05/18 16:02 Urine Color Yellow Urine Clarity Clear Urine pH 6.0 pH (4.8-9.5) Urine Specific [place] 1.016 Urine Protein 30 mg/dL (NEGATIVE) Urine Glucose (UA) Negative mg/dL (NEGATIVE) Urine Ketones Negative mg/dL (NEGATIVE) Urine Blood Negative (NEGATIVE) Urine Nitrite Negative (NEGATIVE) Urine Bilirubin Negative (NEGATIVE) Urine Urobilinogen Negative mg/dL (0.2-1.9) Urine Leukocyte Esterase Moderate (NEGATIVE) Urine RBC 5 /HPF (0-2/HPF) Urine WBC 8 /HPF (0-5/HPF) Urine Squamous Epithelial Cells None /LPF (NONE-FEW) Urine Bacteria Negative /HPF (NONE-FEW) Urine Mucus Few /HPF (NONE-FEW) White Blood Count 7.5 k/uL (4.5-11.0) Red Blood Count 4.06 M/uL (4.17-5.56) Hemoglobin 10.7 g/dL (12.0-16.0) Hematocrit 33.4 % (34.0-47.0) Mean Corpuscular Volume 82.3 fL (80.0-96.0) Mean Corpuscular Hemoglobin 26.4 pg (26.0-33.0) Mean Corpuscular Hemoglobin Concent 32.1 g/dL (32.0-36.0) Red Cell Distribution Width 15.6 % (11.5-14.5) Platelet Count 488 K/uL (150-450) Mean Platelet Volume 7.1 fL (7.2-11.1) Neutrophils (%) (Auto) 75.0 % (39.4-72.5) Lymphocytes (%) (Auto) 9.8 % (17.6-49.6) Monocytes (%) (Auto) 4.3 % (4.1-12.4) Eosinophils (%) (Auto) 9.8 % (0.4-6.7) Basophils (%) (Auto) 1.1 % (0.3-1.4) Nucleated RBC Relative Count (auto) 0.1 /100WBC Neutrophils # (Auto) 5.6 K/uL (2.0-7.4) Lymphocytes # (Auto) 0.7 K/uL (1.3-3.6) Monocytes # (Auto) 0.3 K/uL (0.3-1.0) Eosinophils # (Auto) 0.7 K/uL (0.0-0.5) Basophils # (Auto) 0.1 K/uL (0.0-0.1) Nucleated RBC Absolute Count (auto) 0.00 K/uL Glomerular Filtration Rate Calc > 60.0 Calcium Level 9.6 mg/dl (8.4-10.2) Total Bilirubin 0.8 mg/dl (0.2-1.3) Aspartate Amino Transf (AST/SGOT) 82 U/L (0-35) Alanine Aminotransferase (ALT/SGPT) 37 U/L (0-56) Alkaline Phosphatase 117 U/L (0-126) Total Protein 8.0 g/dl (6.3-8.2) Albumin 4.0 g/dl (3.5-5.0) Urinalysis Test 08/05/18 15:25 Urine Color Yellow Urine Clarity Clear Urine pH 6.0 pH (4.8-9.5) Urine Specific [place] 1.016 Urine Protein 30 mg/dL (NEGATIVE) Urine Glucose (UA) Negative mg/dL (NEGATIVE) Urine Ketones Negative mg/dL (NEGATIVE) Urine Blood Negative (NEGATIVE) Urine Nitrite Negative (NEGATIVE) Urine Bilirubin Negative (NEGATIVE) Urine Urobilinogen Negative mg/dL (0.2-1.9) Urine Leukocyte Esterase Moderate (NEGATIVE) Urine RBC 5 /HPF (0-2/HPF) Urine WBC 8 /HPF (0-5/HPF) Urine Squamous Epithelial Cells None /LPF (NONE-FEW) Urine Bacteria Negative /HPF (NONE-FEW) Urine Mucus Few /HPF (NONE-FEW) ED Course/Re-evaluation ED Course 37 f presents with postop concerns s/p resection of adenocarcinoma; pt's surgical/incision sites are without infection. UA unlikely infected given mortensen; will remove this. I consulted Dr. Lozano who is aware of findings and agrees w ith removal of mortensen, of INDER remaining in place, and is aware of the blood with osotomy site. There is no further bleeding in ED and further brown stool is noted. Pt is aware of potential of urethra spasm and need for mortensen replacement if she fails. D/c with SRP's. Decision to Disposition Date: August 05, 2018 Decision to Disposition Time: 16:30 Depart Departure Latest Vital Signs Vital Signs Date Time Temp Pulse Resp B/P (MAP) Pulse Ox O2 Delivery O2 Flow Rate FiO2 08/05/18 14:55 98.2 96 18 113/92 94 Room Air Impression: Primary Impression: Dysuria Additional Impression: Bleeding from colostomy Condition: Improved Disposition: HOME OR SELF-CARE Referrals: SONY LOZANO MD Additional Instructions: As we discussed, return if unable to urinate after 6-8 hours and you feel the urge, return for vomiting, uncontrolled bleeding, pain, or any concerns. Follow up with Dr. Lozano on Wednesday as scheduled. Problem Qualifiers WANDA PALCAIOS MD August 05, 2018 15:26
[2018-08-05 16:10] LABS: PLATELET COUNT, AUTOMATED 488 K/uL (150-450)
[2018-08-05 16:30] VITALS: BP 131/85
[2018-08-09] MEDS ORDERED: OXYC-854 PO (09:14)
== END 2018-08-05 16:50 | disposition home or self-care (01) ==
LOC: ER 14:51
DX: R30.0 Dysuria (principal); K94.01 Colostomy hemorrhage; Z98.890 Other specified postprocedural states
CPT/HCPCS: 36415; 81001; 82040; 82247; 82274; 82310; 82374; 82435; 82565; 82947; 84075; 84132; 84155; 84295; 84450; 84460; 84520; 85025; 99283

== ENCOUNTER 2018-08-06 01:24 | Emergency (ER) | payer MEDICAID ==
[2018-08-06 01:29] VITALS: BP 140/72
[2018-08-06] MEDS ORDERED: CEPHALEXIN MONO 500 MG CAP PO ONE (02:15)
--- NOTE | 2018-08-06 02:15 | ER Report ---
History and Physical Time Seen By MD: 01:45 Hx. of Stated Complaint: PATIENT REPORTS CATHETER REMOVAL AT 1700 08/05 HPI/ROS CHIEF COMPLAINT: Urinary retention HISTORY OF PRESENT ILLNESS: Patient is a 37-year-old female who is postop from rectal surgery to remove an adenocarcinoma and status post colectomy. Patient was seen earlier today for some bleeding around her stoma site and also complaining of pain related to her Chowdhury catheter. Chowdhury catheter was removed during her ER visit on the . She has been unable to urinate since its removal. Patient is taking oxycodone currently for pain. She denies any significant abdominal pain which is pressure in unable to urinate. She denied any prior dysuria or burning. She is scheduled to follow-up with Dr. Benavides on Wednesday for surgical follow-up. As instructed to return to the emergency department since she's been unable to urinate. Nursing staff performed bladder scan showed approximately 300 mL of fluid in the bladder. Urinalysis was remarkable for leukocytes and some bacteria on earlier sample on August 05 but urin e culture was not sent. REVIEW OF SYSTEMS: Respiratory: No cough, no dyspnea. Cardiovascular: No chest pain, no palpitations. Gastrointestinal: No vomiting, no abdominal pain. : Unable to urinate Musculoskeletal: No back pain. Allergies: Coded Allergies: No Known Drug Allergies (Unverified , 08/06/18) Home Meds Active Scripts Sulfamethoxazole/Trimet 800-160 Mg Tab (BACTRIM DS TABLET) 1 Each Tablet, 1 TAB PO Q12H for 14 Days, #28 TAB Prov:SONY LOZANO MD 08/05/18 Reported Medications Oxycodone Hcl/Acetaminophen (OXYCODONE-ACETAMINOPHEN 5-325) 1 Each Tablet, 1 EACH PO BID PRN for PAIN, TAB 02/25/18 Ondansetron (ZOFRAN ODT) 4 Mg Tab.rapdis, 8 MG PO Q8H for Nausea, TAB.USMAN 12/01/17 Prochlorperazine Maleate (Compazine) 10 Mg Tablet, PO PRN, #30 12/01/17 Insulin Detemir (LEVEMIR) 100 Unit/Ml Injs, 15-20 UNIT SUBQ QDAY 11/01/17 Metformin Hcl (METFORMIN HCL) 500 Mg Tablet, 1 TAB PO BID, TAB 11/01/17 Ketorolac Tromethamine (KETOROLAC TROMETHAMINE) 10 Mg Tab, 10 MG PO Q4H PRN for PAIN, TAB 10/21/17 Discontinued Scripts Sulfamethoxazole/Trimet 800-160 Mg Tab (BACTRIM DS TABLET) 1 Each Tablet, 1 TAB PO Q12H for 14 Days, #28 TAB Prov:SONY LOZANO MD 08/05/18 Past Medical/Surgical History Past medical history for rectal adenocarcinoma status post surgery. Hx Smoking: No Smoking Status: Never Smoker Exposure to Second Hand Smoke?: No Hx Substance Use Disorder: No Hx Alcohol Use: No Constitutional Vital Sign - Last 24 Hours 08/06/18 08/06/18 01:29 01:29 Temp 98.3 Pulse 97 Resp 17 B/P (MAP) 140/72 140/72 (94) Pulse Ox 94 O2 Delivery Room Air Intake and Output 08/05/18 08/05/18 08/06/18 15:00 23:00 07:00 Output Total 350 ml Balance -350 ml Physical Exam General Appearance: The patient is alert, has no immediate need for airway protection and no current signs of toxicity. Eyes: Pupils equal and round no injection. Respiratory: Chest is non tender, lungs are clear to auscultation. Cardiac: regular rate and rhythm [ ] Gastrointestinal: Abdomen is protuberant there is a INDER drain that has a small amount of serous fluid in the bottle. Patient also with colostomy with site appearing pink and moist. No specific guarding or rebound tenderness elicited on exam Musculoskeletal: Neck: Neck is supple and non tender. Extremities have full range of motion and are non tender. Skin: No rashes or lesions. Medical Decision Making Data Points Laboratory Hematology Test 08/06/18 01:55 Urine Color Yellow Urine Clarity Clear Urine pH 7.0 pH (4.8-9.5) Urine Specific [place] 1.015 Urine Protein Negative mg/dL (NEGATIVE) Urine Glucose (UA) Negative mg/dL (NEGATIVE) Urine Ketones Negative mg/dL (NEGATIVE) Urine Blood Negative (NEGATIVE) Urine Nitrite Negative (NEGATIVE) Urine Bilirubin Negative (NEGATIVE) Urine Urobilinogen Negative mg/dL (0.2-1.9) Urine Leukocyte Esterase Negative (NEGATIVE) Urine RBC <1 /HPF (0-2/HPF) Urine WBC 5 /HPF (0-5/HPF) Urine Squamous Epithelial Cells Few /LPF (NONE-FEW) Urine Transitional Epithelial Cells Few /LPF (NONE-FEW) Urine Bacteria Negative /HPF (NONE-FEW) Urine Mucus Few /HPF (NONE-FEW) Chemistry Test 08/06/18 01:55 Urine Color Yellow Urine Clarity Clear Urine pH 7.0 pH (4.8-9.5) Urine Specific [place] 1.015 Urine Protein Negative mg/dL (NEGATIVE) Urine Glucose (UA) Negative mg/dL (NEGATIVE) Urine Ketones Negative mg/dL (NEGATIVE) Urine Blood Negative (NEGATIVE) Urine Nitrite Negative (NEGATIVE) Urine Bilirubin Negative (NEGATIVE) Urine Urobilinogen Negative mg/dL (0.2-1.9) Urine Leukocyte Esterase Negative (NEGATIVE) Urine RBC <1 /HPF (0-2/HPF) Urine WBC 5 /HPF (0-5/HPF) Urine Squamous Epithelial Cells Few /LPF (NONE-FEW) Urine Transitional Epithelial Cells Few /LPF (NONE-FEW) Urine Bacteria Negative /HPF (NONE-FEW) Urine Mucus Few /HPF (NONE-FEW) Urinalysis Test 08/06/18 01:55 Urine Color Yellow Urine Clarity Clear Urine pH 7.0 pH (4.8-9.5) Urine Specific [place] 1.015 Urine Protein Negative mg/dL (NEGATIVE) Urine Glucose (UA) Negative mg/dL (NEGATIVE) Urine Ketones Negative mg/dL (NEGATIVE) Urine Blood Negative (NEGATIVE) Urine Nitrite Negative (NEGATIVE) Urine Bilirubin Negative (NEGATIVE) Urine Urobilinogen Negative mg/dL (0.2-1.9) Urine Leukocyte Esterase Negative (NEGATIVE) Urine RBC <1 /HPF (0-2/HPF) Urine WBC 5 /HPF (0-5/HPF) Urine Squamous Epithelial Cells Few /LPF (NONE-FEW) Urine Transitional Epithelial Cells Few /LPF (NONE-FEW) Urine Bacteria Negative /HPF (NONE-FEW) Urine Mucus Few /HPF (NONE-FEW) ED Course/Re-evaluation ED Course Platelets time will be to re-insert Chowdhury catheter to insure patency and urine output. Review of patient's lab work from earlier on the was unremarkable. Patient with normal BUN and creatinine. We will obtain urinalysis and send for urine culture. We will likely send patient home with Chowdhury catheter and leg bag. We'll start patient on oral cephalexin. Decision to Disposition Date: August 06, 2018 Decision to Disposition Time: 02:16 Depart Departure Latest Vital Signs Vital Signs Date Time Temp Pulse Resp B/P (MAP) Pulse Ox O2 Delivery O2 Flow Rate FiO2 08/06/18 01:29 140/72 (94) 08/06/18 01:29 98.3 97 17 94 Room Air Impression: Primary Impression: Urinary retention Condition: Improved Disposition: HOME OR SELF-CARE Patient Instructions: Acute Urinary Retention in Women (ED), Chowdhury Catheter Placement and Care (DC) Additional Instructions: Follow-up as scheduled with Dr. Benavides this Wednesday. Get your antibiotic prescription that was ordered filled and start taking as directed until completed WANDA SMITH MD August 06, 2018 02:15
[2018-08-09] MEDS ORDERED: OXYC-854 PO (09:14)
== END 2018-08-06 02:23 | disposition home or self-care (01) ==
LOC: ER 01:51
DX: R33.9 Retention of urine, unspecified (principal)
CPT/HCPCS: 81001; 87077; 87088; 87186; 99283

== ENCOUNTER 2018-08-10 08:00 | Emergency (ER) | payer MEDICAID ==
[~2018-08-10 08:00] MED LIST changes: +OXYC-854 PO
[2018-08-10 08:09] VITALS: BP 124/86
--- NOTE | 2018-08-10 08:24 | ER Report ---
History and Physical Time Seen By MD: 08:15 Hx. of Stated Complaint: RECENT SURGERY WITH POSSIBLE UTI. CATHETER REMOVED YESTERDAY. URINATED ALL DAY BUT WOKE UP WITH LOTS OF PRESSURE AT 0500 TODAY AND DIFFICULTY URINATING HPI/ROS CHIEF COMPLAINT: Urinary retention HISTORY OF PRESENT ILLNESS: 37-year-old female status post surgery for resection of colorectal cancer comes in today unable to pass urine she said she did urinate a little bit yesterday bladder scan does demonstrate 650 mL of unpassed urine patient states she's having discomfort in her suprapubic region. Patient did have a Chowdhury that was placed there was removed and replaced again and then removed again for the last couple weeks has been having trouble getting urine to pass. Patient's denying any fever chills or sweats nausea vomiting diarrhea or additional complaints noted REVIEW OF SYSTEMS: Respiratory: No cough, no dyspnea. Cardiovascular: No chest pain, no palpitations. Gastrointestinal: No vomiting, no abdominal pain. Musculoskeletal: No back pain. Remainder of the 14 system rev: Yes Allergies: Coded Allergies: No Known Drug Allergies (Unverified , 08/10/18) Home Meds Active Scripts Oxycodone Hcl/Acet 5/325 Mg (ENDOCET 5-325 TABLET) 1 Each Tablet, 1 TAB PO Q4H PRN for PAIN, #30 TAB 0 Refills Prov:SONY LOZANO MD 08/09/18 Sulfamethoxazole/Trimet 800-160 Mg Tab (BACTRIM DS TABLET) 1 Each Tablet, 1 TAB PO Q12H for 14 Days, #28 TAB Prov:SONY LOZANO MD 08/05/18 Reported Medications Oxycodone Hcl/Acetaminophen (OXYCODONE-ACETAMINOPHEN 5-325) 1 Each Tablet, 1 EACH PO BID PRN for PAIN, TAB 02/25/18 Ondansetron (ZOFRAN ODT) 4 Mg Tab.rapdis, 8 MG PO Q8H for Nausea, TAB.USMAN 12/01/17 Prochlorperazine Maleate (Compazine) 10 Mg Tablet, PO PRN, #30 12/01/17 Insulin Detemir (LEVEMIR) 100 Unit/Ml Injs, 15-20 UNIT SUBQ QDAY 11/01/17 Metformin Hcl (METFORMIN HCL) 500 Mg Tablet, 1 TAB PO BID, TAB 11/01/17 Ketorolac Tromethamine (KETOROLAC TROMETHAMINE) 10 Mg Tab, 10 MG PO Q4H PRN for PAIN, TAB 10/21/17 Discontinued Scripts Sulfamethoxazole/Trimet 800-160 Mg Tab (BACTRIM DS TABLET) 1 Each Tablet, 1 TAB PO Q12H for 14 Days, #28 TAB Prov:SONY LOZANO MD 08/05/18 Reviewed Nurses Notes: Yes Old Medical Records Reviewed: Yes Hx Smoking: No Smoking Status: Never Smoker Exposure to Second Hand Smoke?: No Hx Substance Use Disorder: No Hx Alcohol Use: No Constitutional Vital Sign - Last 24 Hours 08/10/18 08:09 Temp 97.9 Pulse 81 Resp 20 B/P (MAP) 124/86 Pulse Ox 96 O2 Delivery Room Air Physical Exam General Appearance: The patient is alert, has no immediate need for airway protection and no current signs of toxicity. [ ] Eyes: Pupils equal and round no injection. Respiratory: Chest is non tender, lungs are clear to auscultation. Cardiac: regular rate and rhythm [ ] Gastrointestinal: Abdominal examination demonstrates postsurgical changes and complications no obvious competitions noted plus [place] noted post surgical changes consistent with prior procedures. Mild tenderness to deep palpation of the suprapubic region otherwise unremarkable exam patient has a large body habitus a morbidly obese Musculoskeletal: Neck: Neck is supple and non tender. Extremities have full range of motion and are non tender. Skin: No rashes or lesions. [ ] DIFFERENTIAL DIAGNOSIS: After history and physical exam differential diagnosis was considered for urinary retention [place] tract infection Medical Decision Making Data Points Laboratory Hematology Test 08/10/18 08:30 Urine Color Yellow Urine Clarity Clear Urine pH 6.0 pH (4.8-9.5) Urine Specific [place] 1.017 Urine Protein Negative mg/dL (NEGATIVE) Urine Glucose (UA) Negative mg/dL (NEGATIVE) Urine Ketones Negative mg/dL (NEGATIVE) Urine Blood Negative (NEGATIVE) Urine Nitrite Negative (NEGATIVE) Urine Bilirubin Negative (NEGATIVE) Urine Urobilinogen Negative mg/dL (0.2-1.9) Urine Leukocyte Esterase Negative (NEGATIVE) Urine RBC 2 /HPF (0-2/HPF) Urine WBC 11 /HPF (0-5/HPF) Urine Squamous Epithelial Cells Few /LPF (NONE-FEW) Urine Bacteria Negative /HPF (NONE-FEW) Urine Mucus Few /HPF (NONE-FEW) Chemistry Test 08/10/18 08:30 Urine Color Yellow Urine Clarity Clear Urine pH 6.0 pH (4.8-9.5) Urine Specific [place] 1.017 Urine Protein Negative mg/dL (NEGATIVE) Urine Glucose (UA) Negative mg/dL (NEGATIVE) Urine Ketones Negative mg/dL (NEGATIVE) Urine Blood Negative (NEGATIVE) Urine Nitrite Negative (NEGATIVE) Urine Bilirubin Negative (NEGATIVE) Urine Urobilinogen Negative mg/dL (0.2-1.9) Urine Leukocyte Esterase Negative (NEGATIVE) Urine RBC 2 /HPF (0-2/HPF) Urine WBC 11 /HPF (0-5/HPF) Urine Squamous Epithelial Cells Few /LPF (NONE-FEW) Urine Bacteria Negative /HPF (NONE-FEW) Urine Mucus Few /HPF (NONE-FEW) Urinalysis Test 08/10/18 08:30 Urine Color Yellow Urine Clarity Clear Urine pH 6.0 pH (4.8-9.5) Urine Specific [place] 1.017 Urine Protein Negative mg/dL (NEGATIVE) Urine Glucose (UA) Negative mg/dL (NEGATIVE) Urine Ketones Negative mg/dL (NEGATIVE) Urine Blood Negative (NEGATIVE) Urine Nitrite Negative (NEGATIVE) Urine Bilirubin Negative (NEGATIVE) Urine Urobilinogen Negative mg/dL (0.2-1.9) Urine Leukocyte Esterase Negative (NEGATIVE) Urine RBC 2 /HPF (0-2/HPF) Urine WBC 11 /HPF (0-5/HPF) Urine Squamous Epithelial Cells Few /LPF (NONE-FEW) Urine Bacteria Negative /HPF (NONE-FEW) Urine Mucus Few /HPF (NONE-FEW) ED Course/Re-evaluation ED Course ED course 37-year-old female comes emergency Department today with urinary retention she had over 6 and 50 mL and a bladder scan she had a leg bag and Chowdhury placed urinalysis showed no sign of infection we'll leave the Chowdhury in place her follow up with general surgery and possible urological consult diagnosis urinary retention Decision to Disposition Date: August 10, 2018 Decision to Disposition Time: 08:54 Depart Departure Latest Vital Signs Vital Signs Date Time Temp Pulse Resp B/P (MAP) Pulse Ox O2 Delivery O2 Flow Rate FiO2 08/10/18 08:09 97.9 81 20 124/86 96 Room Air Impression: Primary Impression: Urinary retention Condition: Improved Disposition: HOME OR SELF-CARE Referrals: SONY LOZANO MD 2 Days Patient Instructions: Acute Urinary Retention in Women (ED) DOLORES MCALLISTER MD August 10, 2018 08:24
[2018-08-10] MEDS ORDERED: TAMS0.4C25 PO (15:00)
== END 2018-08-10 09:20 | disposition home or self-care (01) ==
LOC: ER 08:14
DX: R33.9 Retention of urine, unspecified (principal)
CPT/HCPCS: 81001; 87088; 99283

== ENCOUNTER 2018-08-15 15:00 | Outpatient (RCR) | payer MEDICAID ==
--- NOTE | 2018-06-28 10:23 | NUR ---
SAVANAH rec'd information back from [facility] that they had received the application for the patient back in May and had completed the request that was made. SAVANAH completed another application to assist with Travel and Lodging for the patient's surgery in [place] in July.
--- NOTE | 2018-08-01 13:13 | NUR ---
Patient called today requesting pain medication refill. There was confusion among the staff since patient had surgery in [place] and was out of meds, as to who would be monitoring her meds. I discussed with patient, we will see her in clinic today and give her enough meds to get through until she can be seen by either a primary care or the [facility] clinic since our policy is not to prescribe meds for patients not actively on treatment. patient expressed that she was not having home health monitor drain or mortensen because it wasn't covered by medicaid. she states that her and her are taking care of it. she also states that she is to return to [place] in 15 days from discharge for followup, drain removal and mortensen removal. I discussed with social work the importance of getting Rachel taken care of today, as well as helping her establish a primary care in [place] instead of the [facility] clinic to help with pain meds and other home meds she is currently taking. patient was in agreement to be seen today as well as to bring in her her bottles so we can update her med rec.
[2018-08-01 13:48] VITALS: BP 154/95
--- NOTE | 2018-08-01 14:40 | NUR ---
SAVANAH rec'd a call from pt today complaining of pain and not being able to get in touch with her surgeon in [place] or the [facility] for refills on her main medication. SAVANAH spoke with [employer] who indicated she would be willing to see the patient. Pt arrived at her scheduled time. During this visit SW gave pt information on other primary care providers in [place] who have M-F clinic hours. Pt stated she was not inclined to pick a different PCP because she would be going off medicaid soon and would need to go back to the [facility] anyway once that happened. SW suggested that now would be a good time to apply for Social security disability since now we know her ostomy bag is going to be with her for her lifetime. She has been hesitant to apply for disability because she might potentially earn more money than what is allowed to access other resources that are currently helping her, and still not be guaranteed medical coverage even if she is deemed disabled. If the pt is deemed disabled and qualifies for true SSDI, then she could potentially apply for the employed individuals with disabilities benefit through [place] medicaid, which would allow her to pay for her own medicaid and still collect SSDI. This would give her coverage until medicare would kick in after two years of disability. SAVANAH will plan to complete the social security disability application with the pt later this week.
--- NOTE | 2018-08-02 21:38 | ONCOLOGY FOLLOW UP NOTE ---
EVENT DATE: August 01, 2018 DIAGNOSIS Rectal adenocarcinoma, status post resection and ileostomy placement between 07/19/18 and 07/27/18. CHIEF COMPLAINT Patient is here today after calling for an add-on visit secondary to pain related to recent surgery, currently out of her prescription narcotics prescribed via her surgeon. ONCOLOGY HISTORY Patient is a 37-year-old woman who had right carpal tunnel surgery, took narcotics with related development of constipation. Patient was given stool softeners for that, but she developed rectal bleeding and dyschezia. She went to Urgent Care where she has been on three or four occasions and has been diagnosed with internal and external hemorrhoids. She was taking Preparation-H with minimal amount of benefit, but she continued to have rectal pain, so the patient requested to see a specialist. The patient was referred to a chaser apprentice in [place]. She had a colonoscopy done on the September, which showed a malignant mass, a partially obstructing tumor at 20 cm from the anal verge, which was biopsied. There was also a rectal mass zero to 1 cm from the anal verge, but it was not biopsied. The pathology of the 20 cm mass from the anal verge came back positive for moderately differentiated adenocarcinoma arising in an adenomatous polyp with high-grade dysplasia. High- grade dysplasia and invasive tumor involved with the edges of the biopsy. No lymphovascular invasion identified. Microsatellite instability high came back negative. She had a CT abdomen and pelvis done on the September, which showed irregular soft tissue mass extending from the left lateral wall of the rectum, extending into and appeared to invade the left levator ani muscle about 4.2 cm. There was an additional heterogenous soft tissue density mass at the rectosigmoid junction about 4.6 cm. There were multiple lymph nodes in the left common iliac, the right common iliac, the internal iliac lymph nodes bilaterally, left common iliac internal iliac lymph nodes, multiple small lymph nodes identified in the perirectal fat, and there were scattered retroperitoneal lymph nodes, but the lymph nodes were less than 1.5 cm in size. PET/CT scan done on October 28, 2017, did reveal fullness of the rectal area with fairly significant bulkiness into the perirectal fat and SUV in the low 20s. The patient also had a colonoscopy with biopsy done by Dr. Horton on October 27, 2017, and I discussed the case with Dr. Horton. He found that the rectal mass and the colon mass both are one mass with intraluminal spread through the hughes which is only one mass, and the biopsy of the rectal mass came back tubovillous adenoma. Patient started neoadjuvant chemotherapy with FOLFOX on November 17, 2017. Patient received eight cycles of FOLFOX chemotherapy, completed on the February. Patient received chemoradiation after her neoadjuvant chemotherapy with chemoradiation, completed on the April. Patient was recently hospitalized for surgery in [place] at [facility] between 07/19/18 and 07/27/18. Her surgeon there is Dr. Jevon Perdue, and she follows up locally at the [facility] with Dr. Mitchell. Patient reports that she had surgery and was discharged home on 07/27/18. She tells me that she was given her prescription medications there at the hospital pharmacy, but was not given any refills or paper prescriptions. She called today as she reports that she has been unable to get in touch with her surgeon in [place] and is out of her oxycodone. She tells me she has been out and has been trying to call them all weekend. In addition to that, she also states that she did get ahold of them, but was told that they could not send in a prescription electronically, and a hard copy had to be given. These stories both conflict with each other, and it is unsure as to which is accurate. Lastly, she reports that she is unable to request pain medication refills through her primary care physician as she sees a physician at the [facility], and they are only open one day per week on Wednesdays here in [place]. She is quite upset. We unfortunately do not have all of her records related to her recent surgery. HISTORY OF PRESENT ILLNESS Rachel is here today for followup for acute care visit regarding refill on prescription pain medication. As per above, she was hospitalized between 07/19/18 and 07/27/18. She currently has ileostomy in place, also with an indwelling Chowdhury catheter which apparently will be in place for two weeks until her surgical followup, and also has one INDER drain. She spoke with our psychiatric social worker supervisor, Domenica, earlier today at length to report that she was quite uncomfortable from her Chowdhury catheter. She tells me she is unsure of why the Chowdhury catheter was placed, but was quite concerned as she was urinating around the catheter today. She then called a friend of hers who is a nurse and told her that that was normal. She does not yet have her two-week surgical followup scheduled yet and tells me that she was trying to call her surgeons today to get that appointment scheduled. She reports that her pain level is quite high and is at times intolerable. All of her pain is located rectally. She is also having some mild clear drainage rectally, and she has some sutures in place. PAST MEDICAL HISTORY 1. Obesity. 2. Type 2 diabetes. PAST SURGICAL HISTORY 1. x4. 2. Right carpal tunnel release surgery x2. 3. Cholecystectomy. FAMILY HISTORY Patient had ovarian cancer in her paternal grandmother. Maternal aunt with breast cancer. Paternal uncle with colon cancer in his 40s. SOCIAL HISTORY Patient is with four children. She worked for [employer], but not currently as she is on a medical leave now. Denies any abuse of tobacco, alcohol, or illicit drugs. She is a never-smoker lady. CURRENT MEDICATIONS 1. Ketorolac 10 mg tablet every four hours p.r.n. for pain. 2. Ibuprofen p.r.n. for pain. 3. Oxycodone 5 mg one to two tablets p.o. q.6 hours p.r.n. pain. 4. Lovenox 50 mg subcutaneously q. day. 5. Docusate 100 mg p.o. b.i.d. q. day x10 days. 6. Senna 8.6 mg two p.o. b.i.d. 7. Levofloxacin 750 mg one p.o. q. day x3. ALLERGIES No known drug allergies. REVIEW OF SYSTEMS CONSTITUTIONAL: Patient reports significant rectal pain related to recent surgery. She denies any fevers since being discharged, but reports that she did have fever while inpatient. No chills. HEENT: No tinnitus. No vision changes. No mouth sores. No dysphagia or odynophagia. RESPIRATORY: No shortness of breath. No cough, sputum production, or hemoptysis. CARDIOVASCULAR: No chest pain, syncope, or presyncope. GASTROINTESTINAL: No abdominal pain, nausea, or vomiting. She denies any diarrhea or constipation. Reports that her ileostomy is functioning well. She does have some rectal pain with some occasional clear discharge, but no rectal bleeding. She is status post recent resection. GENITOURINARY: No dysuria or hematuria. No genitourinary discharge. She did have a UTI while inpatient and right after discharge, but tells me that this has resolved. She has an indwelling Chowdhury catheter currently attached to a leg bag. MUSCULOSKELETAL: No focal areas of pain in the muscles, joints, or bones. NEUROLOGIC: She denies any numbness or tingling in the hands or feet. She has occasional headache. No seizure activity. SKIN: No rash, no generalized pruritus. No suspicious lumps or bumps. She has one Franklyn-Subramanian drain to the abdomen which has a minimal amount of clear drainage. PSYCHIATRIC: She denies any severe anxiety, severe depression, suicidal or homicidal ideation. PHYSICAL EXAMINATION VITAL SIGNS: T 97.1, P 104, R 16, BP 154/95, oxygen saturation 93% room air. GENERAL: In general, this is a pleasant 37-year-old obese woman who appears well hydrated, well nourished, and is in no acute distress. HEAD: Atraumatic, normocephalic. EYES: Sclerae anicteric. ENT, MOUTH: Moist mucous membranes. No mucositis or lesions. NECK: Supple. No lymphadenopathy. LUNGS: Clear to auscultation bilaterally. No focal findings. CARDIAC: Mildly tachycardic, regular rhythm. No ectopy. ABDOMEN: Soft, nontender, nondistended. Bowel sounds positive x4. Ileostomy in place in the left lower quadrant. INDER drain x1 with mild amount of serosanguineous fluid. EXTREMITIES: No clubbing, cyanosis, or edema. NEUROLOGIC: Patient is awake, alert, oriented x3. PSYCHIATRIC: Mood and affect are appropriate. DERM: No rash, petechiae, or purpura. LABORATORY No labs today. IMPRESSION AND PLAN This is a pleasant 37-year-old woman with rectal adenocarcinoma, status post colonoscopy done on the September, which showed two masses, one at 20 cm from the anal verge, and the biopsy was positive for invasive, moderately differentiated adenocarcinoma arising from an adenomatous polyp. Microsatellite instability high was negative. No lymphovascular invasion identified. There was another rectal mass at zero to 1 cm from the anal verge which was not biopsied. CT abdomen and pelvis October 08, 2017, showed multiple lymph nodes in the left common iliac, right common iliac, internal iliac, retroperitoneal lymph nodes, and in the perirectal fat. The largest lymph node was in the left common iliac, and it was 1.3 cm. There were two masses, one extending from the left lateral wall of the rectum about 4.2 cm, extending into and appearing to invade the levator ani muscle. There was another mass, 4.6 cm, at the rectosigmoid junction. Patient had a colonoscopy done by Dr. Horton October 27, 2017, which showed only one mass extending through the wall of the rectum into the rectosigmoid junction, so there was only one mass and not two masses. Biopsies of the rectal mass came back positive for tubulovillous adenoma. Patient received neoadjuvant chemotherapy with FOLFOX for eight cycles, received between November 17, 2017, through February 25, 2018. Repeat PET/CT scan March 03, 2018, revealed significant decrease in the size and activity of the rectal mass and the perirectal masses compared to previous PET scan. There were also hypermetabolic lymph nodes in the bilateral groin and bilateral axillae, concerning for tasha metastases. No definite intrathoracic or intra-abdominal metastases. No focal liver lesions. She had repeat colonoscopy March 02, 2018, by Dr. Horton, and it seemed that her rectal mass was responding to her treatment. Her CEA dropped from 11, and currently it is 6. CT chest, abdomen, and pelvis done the April showed shrinkage of the tumor from 4.6 cm to 1.3 cm. Patient completed her neoadjuvant chemoradiation on the April. Bilateral axillary lymph nodes by PET scan done March 03, 2018, but no lymph nodes were found by Dr. Horton to biopsy. She recently had surgery and has ileostomy in place now. She had her surgery done in [place], and her surgeon there was Dr. Perdue. Unfortunately, we do not have any of these records available to us. Apparently, she was given a prescription for oxycodone without any refills. I did ask her to bring in her medications with her, and on assessment, the prescription was filled in [place] at [facility] with oxycodone 5 mg tablets given with a quantity of 30 with no refills, which has a fill date of 07/23/18 on the bottle. Patient reports she was discharged on 07/27/18. Again, I do not have records from her surgery, and it is difficult to know exactly when she was discharged or otherwise. Lastly, there are conflicting stories as patient did call several times today and spoke with our psychiatric social worker supervisor and reported that 1) she was trying to get in touch with her surgeon, though was unable to, then 2) stated that she did get in touch with them, but was told that she could not get a refill through their office in [place] because they could not send this electronically, and she needed to go in in person to pick up driver a prescription, and 3) she stated that this was going to be difficult for her obtain because her Medicaid was only good in the State of [place], and if she had a prescription outside of [place], i.e., [place], this would not be covered by Medicaid, and she would have to pay out of pocket for that, which she cannot do. Again, very conflicting information. I explained to patient that we are not dismissing as she reported that she felt like we did not want to take care of her. I explained to patient that there is a certain level of appropriateness for followup, especially if she just recently had surgery, and her pain medication was prescribed by that surgeon. It is most appropriate for patients to follow up with that surgeon for refills, especially if they are still having pain, although I understand that her initial diagnosis is rectal adenocarcinoma, and that is the reason why she had established care with us in the first place. Again, I tried to explain to patient that her acute issue is coming from her recent surgery. Nonetheless, she reports that she is unable to get in touch with her surgeon and will not be able to follow up with her primary care physician until later this week on Wednesday when that clinic is open. 1. I provided patient with handwritten prescription for oxycodone 5 mg tablets, one to two tablets p.o. every six hours p.r.n. pain, #20, no refills. This should be enough to get her through for the next two and a half days as she should only require 16 tablets in a 48-hour period if she is taking these every six hours around the clock. Again, no refills are given, and she will follow up with her surgeon and primary care physician on Wednesday. 2. I have instructed patient to call Dr. Perdue's office as she will definitely need a postsurgical followup to evaluate her incision site, the ostomy, as well as to reevaluate her indwelling Chowdhury catheter. She also still has a Franklyn-Subramanian drain. 3. Explained to patient that we will not be managing or discontinuing or caring for her Chowdhury catheter and Franklyn-Subramanian drain, and that should be done by the surgeon's office. On cursory examination today, her Franklyn-Subramanian drain looked to be intact, her ostomy appeared to be functioning well, and her Chowdhury catheter was attached to a leg bag, and there appeared to be a minimal amount of clear yellow urine. 4. We reviewed signs and symptoms of when to present to the Emergency Room. 5. Patient will follow up with us as scheduled post surgery. SHREE
--- NOTE | 2018-08-09 12:57 | NUR ---
SAVANAH assisted pt with completion of her SSDI application online today. Pt's additional documents were mailed after the application was completed.
[~2018-08-15 15:00] MED LIST changes: +TAMS0.4C25 PO
[2018-08-15 15:18] VITALS: BP 131/105
[2018-08-15 15:24] LABS: PLATELET COUNT, AUTOMATED 410 K/uL (150-450)
[2018-08-18 14:36] VITALS: BP 137/98
[2018-08-18] MEDS ORDERED: HEPARIN FLSH (PORT) 500 UN/5ML IVP PRN (15:15)
[2018-08-18] MEDS ORDERED: NS(*) 0.9% 250 ML BAG 250 ML IVPB PRN (15:15)
[2018-08-18] MEDS ORDERED: LIDOCAINE/SOD BICARB 8.4% SYR ID PRN (15:15)
[2018-08-18] MEDS ORDERED: WATER FOR INJ,STERILE 20 ML IVP PRN (15:15)
[2018-08-18] MEDS ORDERED: NS(*) 0.9% 100 ML BAG 100 ML IVPB PRN (15:15)
[2018-08-18] MEDS ORDERED: DEXTROSE 5%(*) 100 ML BAG 100 ML IVPB PRN (15:15)
[2018-08-18] MEDS ORDERED: ALTEPLASE RECOMB 2 MG VIAL IVP PRN (15:15)
--- NOTE | 2018-08-18 20:40 | ONCOLOGY FOLLOW UP NOTE ---
EVENT DATE: August 18, 2018 DIAGNOSIS Rectal adenocarcinoma. CHIEF COMPLAINT Patient is here today for followup of her rectal adenocarcinoma. ONCOLOGY HISTORY Patient is a 37-year-old woman who had right carpal tunnel surgery three months ago, and the patient took narcotics with related development of constipation. Patient was given stool softeners for that, but she developed rectal bleeding and dyschezia. She went to Urgent Care where she has been on three or four occasions and has been diagnosed with internal and external hemorrhoids. She was taking Preparation-H with minimal amount of benefit, but she continued to have rectal pain, so the patient requested to see a specialist. The patient was referred to a wireworker in [place]. She had a colonoscopy done on the September, which showed a malignant mass, a partially obstructing tumor at 20 cm from the anal verge which was biopsied. There was also a rectal mass zero to 1 cm from the anal verge, but it was not biopsied. The pathology of the 20 cm mass from the anal verge came back positive for moderately differentiated adenocarcinoma arising in an adenomatous polyp with high-grade dysplasia. High-grade dysplasia and invasive tumor involved with the edges of the biopsy. No lymphovascular invasion identified. Microsatellite instability high came back negative. She had a CT abdomen and pelvis done on the September, which showed irregular soft tissue mass extending from the left lateral wall of the rectum, extending into and appeared to invade the left levator ani muscle about 4.2 cm. There was an additional heterogenous soft tissue density mass at the rectosigmoid junction about 4.6 cm. There were multiple lymph nodes in the left common iliac, the right common iliac, the internal iliac lymph nodes bilaterally, left common iliac internal iliac lymph nodes, multiple small lymph nodes identified in the perirectal fat, and there were scattered retroperitoneal lymph nodes, but the lymph nodes were less than 1.5 cm in size. PET/CT scan done on October 28, 2017, did reveal fullness of the rectal area with fairly significant bulkiness into the perirectal fat and SUV in the low 20s. The patient also had a colonoscopy with biopsy done by Dr. Horton on October 27, 2017, and I discussed the case with Dr. Horton. He found that the rectal mass and the colon mass both are one mass with intraluminal spread through the hughes which is only one mass, and the biopsy of the rectal mass came back tubovillous adenoma. Patient started neoadjuvant chemotherapy with FOLFOX on November 17, 2017. Patient received eight cycles of FOLFOX chemotherapy, completed on the February. Patient received chemoradiation after her neoadjuvant chemotherapy with chemoradiation completed on the April. Patient had AP resection with permanent colostomy done on the July, and the pathology came back positive for 4.5 cm poorly differentiated adenocarcinoma with invasion through the muscularis propria into the pericolorectal tissue. All margins were negative. There was extensive residual cancer with no evidence of tumor regression. No lymphovascular invasion or perineural invasion or tumor budding. No tumor deposits, and 22 lymph nodes were negative for metastasis. Tumor was staged as stage pT3 pN0. HISTORY OF PRESENT ILLNESS Patient is here today for followup of her rectal adenocarcinoma after her abdominoperineal resection with permanent colostomy done on the July. She is doing fine currently except genitourinary, she has a problem with urination with incomplete emptying since her surgery. The patient is followed by a urologist for that. She has a permanent colostomy, and her pain after surgery is getting much better currently. PAST MEDICAL HISTORY 1. Obesity. 2. Type 2 diabetes. PAST SURGICAL HISTORY 1. x4. 2. Right carpal tunnel release surgery x2. 3. Cholecystectomy. SOCIAL HISTORY Patient is with four children. She worked for [employer], but not currently as she is on a medical leave now. Denies any abuse of tobacco, alcohol, or illicit drugs. She is a never-smoker lady. FAMILY HISTORY Patient had ovarian cancer in her paternal grandmother. Maternal aunt with breast cancer. Paternal uncle with colon cancer in his 40s. CURRENT MEDICATIONS 1. Ketorolac 10 mg tablet every four hours p.r.n. for pain. 2. Ibuprofen p.r.n. for pain. ALLERGIES No known drug allergies. REVIEW OF SYSTEMS CONSTITUTIONAL: No appetite or weight change. No fever, chills, or sweating. No recent infection. HEENT: Ears: No tinnitus or hearing problem. Nose: No nasal discharge or epistaxis. Throat: No sore throat or mouth ulcers. Eyes: No diplopia or visual changes. RESPIRATORY: No shortness of breath. No cough, expectoration, or hemoptysis. CARDIOVASCULAR: No chest pain, orthopnea, or paroxysmal nocturnal dyspnea (PND). No edema. No palpitations. GASTROINTESTINAL: No nausea or vomiting. No diarrhea or constipation. No change in bowel movements. No heartburn or swallowing difficulties. No abdominal pain. No jaundice. No hematemesis, melena, or rectal bleeding. GENITOURINARY: She has incomplete emptying of her bladder after her surgery, and the patient was using a straight catheter for a month, which was removed today by her urologist. MUSCULOSKELETAL: No pain in the muscles, joints, or bones. NEUROLOGIC: No tingling or numbness in the hands or feet. No headaches or convulsions. HEMATOLOGIC/LYMPHATIC: No bleeding or easy bruising. No weakness or fatigue. No enlarged lymph nodes. SKIN: No skin rash or lumps. PSYCHIATRIC: No anxiety or depression. PHYSICAL EXAMINATION GENERAL: Looks stable. Well developed, well nourished, and in no acute distress. VITAL SIGNS: Blood pressure 137/98, pulse 101 per minute, respirations 18 per minute, temperature 98, pulse ox 96% on room air. HEENT: Head: Atraumatic. No sinus tenderness to palpation. Eyes: No icterus or conjunctivitis. Mouth and Throat: No oral thrush or mucositis. NECK: Supple. No cervical or supraclavicular lymphadenopathy. LUNGS: Clear to auscultation and percussion bilaterally. HEART: Regular rate and rhythm. No gallops, murmurs, clicks, or rubs. ABDOMEN: Soft and lax. No tenderness. No hepatosplenomegaly. No masses. EXTREMITIES: No cyanosis, clubbing, or edema. LYMPHATICS: No peripheral lymphadenopathy. NEUROLOGIC: Conscious, alert, and oriented times three. No focal motor or sensory deficits. PSYCHIATRIC: Mood and affect appear normal. SKIN: No skin rash, bruise, or purpuric eruption. DIAGNOSTIC DATA CBC showed white count 5.7, hemoglobin 10.6, hematocrit 33.5, platelets 410,000. Chem panel totally normal except blood sugar 142. CEA is normal at 1.1. ASSESSMENT Rectal adenocarcinoma, status post colonoscopy done on the September, which showed two masses, one at 20 cm from the anal verge, and the biopsy was positive for invasive, moderately differentiated adenocarcinoma arising from an adenomatous polyp. Microsatellite instability high was negative. No lymphovascular invasion identified. There was another rectal mass at zero to 1 cm from the anal verge which was not biopsied. CT abdomen and pelvis October 08, 2017, showed multiple lymph nodes in the left common iliac, right common iliac, internal iliac, retroperitoneal lymph nodes, and in the perirectal fat. The largest lymph node was in the left common iliac, and it was 1.3 cm. There were two masses, one extending from the left lateral wall of the rectum about 4.2 cm, extending into and appearing to invade the levator ani muscle. There was another mass, 4.6 cm, at the rectosigmoid junction. Patient had a colonoscopy done by Dr. Horton October 27, 2017, which showed only one mass extending through the wall of the rectum into the rectosigmoid junction, so there was only one mass, not two. Biopsies of the rectal mass came back positive for tubulovillous adenoma. Patient received neoadjuvant chemotherapy with FOLFOX for eight cycles, received between November 17, 2017, through February 25, 2018. Repeat PET/CT scan March 03, 2018, revealed significant decrease in the size and activity of the rectal mass and the perirectal masses compared to the previous PET scan. There were also hypermetabolic lymph nodes in the bilateral groin and the bilateral axillae, concerning for tasha metastases. There was no definite intrathoracic or intra-abdominal metastases. No focal liver lesions. Patient had repeat colonoscopy March 02, 2018, by Dr. Horton, and it seemed that her rectal mass was responding to her treatment. Her CEA dropped from 11, and currently it is 1.[address] her rectal surgery[address] CT chest, abdomen, and pelvis done on the April showed shrinkage of the tumor from 4.6 cm to 1.3 cm. Patient completed her neoadjuvant chemoradiation on the April. Patient had her surgery at [facility] on the July with abdominoperineal resection with permanent colostomy done, and the final pathology came back positive for residual 4.5 cm poorly differentiated adenocarcinoma with tumor invading through the muscularis propria into the pericolorectal tissue. All margins were negative, and 22 lymph node were negative for metastasis. No lymphovascular invasion, no perineural invasion, and no tumor budding or tumor deposits. Her tumor was staged as stage pT3 pN0. I am planning to start surveillance after she receives neoadjuvant chemotherapy and neoadjuvant chemoradiation. I am planning to see her again in three months from now with CBC, chemistry panel, and CEA. Her current CEA is normal at 1.1. I am planning also to do a port flush every six weeks. PLAN 1. Continue followup. 2. Patient to return in three months with CBC, chem panel, and CEA. 3. Port flush every six weeks. 4. Patient to contact us for any new concern or complaints. SHABBIRD
[2018-10-11] MEDS ORDERED: NITR-105 PO (12:13)
--- NOTE | 2018-10-13 12:59 | NUR ---
Pt denied disability. Pt came in to day for help with starting the SSDI appeals process. SW assisted the pt. This took over one hour to complete online.
== END 2018-10-30 ==
LOC: SPU 15:00 → ONC 08-18 14:29
PROVIDERS: ATTEND Internal Medicine Hematology
DX: C20 Malignant neoplasm of rectum (principal); E11.9 Type 2 diabetes mellitus without complications; Z79.899 Other long term (current) drug therapy; Z92.21 Personal history of antineoplastic chemotherapy; Z92.3 Personal history of irradiation
CPT/HCPCS: 36415; 36593; 82378; 85025; 96523; G0463; J1642; J2997; 82040; 82247; 82310; 82374; 82435; 82565; 82947; 84075; 84132; 84155; 84295; 84450; 84460; 84520; 99212

== ENCOUNTER → 2018-10-11 | Outpatient (CLI) | payer MEDICAID ==
[~2018-10-11] MED LIST changes: +NITR-105 PO
== END ==
LOC: LAB 11:56
PROVIDERS: ATTEND Urology
DX: R30.0 Dysuria (principal)
CPT/HCPCS: 81001; 87088